=== PATIENT | male | born 1970 | race Caucasian/White ===

== ENCOUNTER → 2020-04-21 14:32 | Outpatient (BNVA) | payer OTHER, SELFPAY | PROVIDERS: PCP Internal Medicine; Visit Provider Internal Medicine Cardiovascular Disease | DX: R07.9 Chest pain, unspecified (principal); I49.3 Ventricular premature depolarization; E78.5 Hyperlipidemia, unspecified | CPT/HCPCS: 93005; 99212 ==

== ENCOUNTER → 2020-04-24 08:30 | Outpatient (REF) | payer OTHER, SELFPAY ==
--- NOTE | 2020-04-24 08:35 | CA_ITS ---
Acquisition Time: 2020-04-24 08:33:27 Total Exercise Time: 00:10:30 Test Indications: Chest Pain Medications: Protocol: ZAIDA Max HR: 173 BPM 101% of Pred: 171 BPM Max BP: 152/084 mmHG Max Work Load: 12.5 METS Exercise stress test with exercise 10 min 30 sec of Zaida protocol, without anginal symptoms, without arrythmia, with normotensive response to exercise, with EKG changes meeting criteria for ischemia inferiorly with exercise which corrects quickly in recovery then with nonspecific ST abnormality later in recovery. Test reviewed with Dr Castaneda. Will order stress echocardiogram for further evaluation. Referred By: Endy Castaneda Overread By: VIVI SAN
== END ==
LOC: HO.CARD 08:30
PROVIDERS: Visit Provider Internal Medicine Cardiovascular Disease
DX: R07.9 Chest pain, unspecified (principal)
CPT/HCPCS: 93016; 93017; 93018

== ENCOUNTER → 2020-05-11 10:39 | Outpatient (REF) | payer OTHER, SELFPAY ==
--- NOTE | 2020-05-11 10:42 | CA_ITS ---
Acquisition Time: 2020-05-11 11:18:40 Total Exercise Time: 00:09:49 Test Indications: Abnormal Treadmill Test Medications: FAMOTIDINE STATIN Protocol: ZAIDA Max HR: 164 BPM 96% of Pred: 170 BPM Max BP: 138/068 mmHG Max Work Load: 11.4 METS Exercise stress ECHO using Zaida protocol. Total of 9 min 49 sec. METS 11.40 and TAPHR up to 96%. . Pt tolerated well, denies any anginal sx. EKG with no arrhythmias, mild ST depressions seen inferiorly and in some lateral and anterior leads, ECHO images taken at rest and immediately after peak exercise HR achieved. Normotensive response to exercise. Test reviewed with Dr. Castaneda. STRESS ECHO Technique ; Images were obtained at rest and immediately post exercise within 1 minute. Definity contrast was used to enhance endocardial defintion. Images were obtained in multiple views and compared side to side. Findings : At rest images are of very good quality. LV systolic function is normal with normal wall motion. Post exercise images are of good quality. There is good augmentation og overall LV systolic function with no regional wall motion abnormalities. Conclusion : Stress ecgo negative for ischemia Referred By: Emely Alba Overread By: ANNETTA CASTANEDA MD
== END ==
LOC: HO.CARD 10:39
PROVIDERS: Visit Provider Nurse Practitioner Family
DX: E78.5 Hyperlipidemia, unspecified (principal); R94.39 Abnormal result of other cardiovascular function study
CPT/HCPCS: 93350; Q9957

== ENCOUNTER → 2020-07-27 15:08 | Outpatient (BNVA) | payer OTHER, SELFPAY | PROVIDERS: PCP Internal Medicine; Visit Provider Internal Medicine Cardiovascular Disease | DX: R07.9 Chest pain, unspecified (principal); E78.5 Hyperlipidemia, unspecified; Z79.899 Other long term (current) drug therapy | CPT/HCPCS: 99212 ==

== ENCOUNTER → 2021-03-31 11:06 | Outpatient (BNVA) | payer OTHER, SELFPAY | PROVIDERS: PCP Internal Medicine; Referring Provider Internal Medicine; Visit Provider Physician Assistant | DX: Z12.11 Encounter for screening for malignant neoplasm of colon (principal); K21.9 Gastro-esophageal reflux disease without esophagitis | CPT/HCPCS: 99202 ==

== ENCOUNTER 2021-06-07 06:04 | Outpatient (REF) | payer OTHER, SELFPAY ==
[2021-06-07 08:10] LABS: Alanine Aminotransferase 36 U/L (0-40); Albumin Level 4.5 g/dL (3.5-5.0); Alkaline Phosphatase 63 U/L (39-117); Anion Gap 11 (12-20); Aspartate Amino Transferase 21 U/L (5-37); Bilirubin Total 1.1 mg/dL (0.0-1.0); Blood Urea Nitrogen 18 mg/dL (9-16); Calcium 9.7 mg/dL (8.4-10.2); Carbon Dioxide 27 mmol/L (22-29); Chloride 104 mmol/L (96-108); Cholesterol 159 mg/dL; Estimated Glomerular Filt Rate > 60; Glucose Fasting 110 mg/dL (60-99); HDL Cholesterol 39 mg/dL; LDL Cholesterol Calculated 98 mg/dl; Potassium 4.5 mmol/L (3.3-5.1); Sodium 137 mmol/L (135-145); Total Protein 7.4 g/dL (6.5-8.0); Triglycerides 111 mg/dL
[2021-06-07 08:34] LABS: PSA,Total (Free>4and<10) 0.45 ng/mL (0.00-4.00)
[2021-06-09 16:42] LABS: CRP High Sensitivity 1.6 mg/L
== END 2021-06-07 06:05 | disposition home or self-care (01) ==
LOC: HO.LAB 06:04
PROVIDERS: Absent Provider Internal Medicine Cardiovascular Disease; PCP Internal Medicine; Visit Provider Internal Medicine
DX: E78.5 Hyperlipidemia, unspecified (principal); L98.9 Disorder of the skin and subcutaneous tissue, unspecified; G47.33 Obstructive sleep apnea (adult) (pediatric); Z12.5 Encounter for screening for malignant neoplasm of prostate; Z99.89 Dependence on other enabling machines and devices
CPT/HCPCS: 36415; 80053; 80061; 84153; 86141

== ENCOUNTER 2021-07-13 08:15 | Day surgery (SDC) | payer OTHER, SELFPAY ==
[2021-07-07 15:49] VITALS: BMI 25.3
--- NOTE | 2021-07-12 08:19 | P.CONAN_ITS ---
Documented by User: Veronique Rivas NP 07/12/21 08:21 HPI - Anesthesia Eval Consult details Narrative: 51yo M for Colonoscopy PMFSH Active Problems Active Problems: All Active Problems (Updated 03/31/21 @ 11:55 by Viktoriya Gibbs PA-C) Encounter for screening colonoscopy (Acute) ARON on CPAP (Acute) Skin lesion (Acute) Abnormal stress ECG (Acute) Hyperlipidemia (Acute) Chest pain (Acute) PVC (premature ventricular contraction) (Acute) GERD (gastroesophageal reflux disease) (Acute) Past Medical History Medical History Chest pain GERD (gastroesophageal reflux disease) Hyperlipidemia ARON on CPAP PVC (premature ventricular contraction) Skin lesion Family History Family History Father No problems noted. Mother Cancer Brother Skin cancer Surgical History Surgical History History of arthroscopy of right knee History of hand surgery History of inguinal hernia repair History of removal of cyst Social History Social History Housing: House Alcohol intake: current Alcohol intake frequency: a few times a week Alcohol type: beer and wine Patient Tobacco Use Status: Former Tobacco user Tobacco use type: Cigarette e-Cigarette/Vaping Use: Never Used Second Hand Smoke Exposure: No Advance Directives: No Advance Directives Information Provided: Yes service: Yes ([facility]) Current occupational status: employed Current occupational exposures/hazards: No Meds Allergies Allergy/AdvReac Type Severity Reaction Status Date / Time Penicillins [PENICILLINS] Allergy Intermediate UNKNOWN Verified 03/31/21 11:09 REACTION-CHILDHOOD ALLERGY Home Medications Medication Instructions Recorded Confirmed Last Taken Type famotidine 20 mg tablet (Acid 20 mg PO BEDTIME 02/13/20 03/31/21 Unknown History Consumer Marketing Manager (famotidine)) Exam Exam Date and Time: July 12, [id number] Height,Weight and Vital Signs: Height 6 ft Weight 84.822 kg Narrative Narrative: 2020 w/u for chest pain. Per cardiology Stress-induced chest pain with normal stress echocardiogram.? Likelihood of obstructive coronary artery disease extremely low. Assessment and Plan Assessment Anesthesia Assessment: Chart Reviewed Documented by User: Cheryl Evans MD 07/13/21 09:14 PMFSH Past Medical History Medical History Chest pain GERD (gastroesophageal reflux disease) Hyperlipidemia ARON on CPAP PVC (premature ventricular contraction) Skin lesion Family History Family History Father No problems noted. Mother Cancer Brother Skin cancer Surgical History Surgical History History of arthroscopy of right knee History of hand surgery History of inguinal hernia repair History of removal of cyst History of Problems with Anesthesia: No Social History Social History Housing: House Alcohol intake: current Alcohol intake frequency: a few times a week Alcohol type: beer and wine Patient Tobacco Use Status: Former Tobacco user Tobacco use type: Cigarette e-Cigarette/Vaping Use: Never Used Second Hand Smoke Exposure: No Advance Directives: No Advance Directives Information Provided: Yes service: Yes ([facility]) Current occupational status: employed Current occupational exposures/hazards: No Meds Allergies Allergy/AdvReac Type Severity Reaction Status Date / Time Penicillins [PENICILLINS] Allergy Intermediate UNKNOWN Verified 03/31/21 11:09 REACTION-CHILDHOOD ALLERGY Home Medications Medication Instructions Recorded Confirmed Last Taken Type famotidine 20 mg tablet (Acid 20 mg PO BEDTIME 02/13/20 03/31/21 Unknown History Consumer Marketing Manager (famotidine)) Exam Airway Mallampati Class: II TM Dist: >3cm Neck ROM: Full Loose/Missing/Broken Teeth: No Heart: RRR Lungs: CTA Assessment and Plan Assessment Anesthesia Assessment: Anesthesia Plan Discussed Final Anesthetic Review History of Problems with Anesthesia: No NPO: Yes ASA Class: III Final Preanesthetic Review: Meds/Allgs Chart Reviewed, Consent Obtained/Reviewed and Anes Risks/Benef Reviewed Patient Risk: Intermediate Procedure Risk: Low Anesthetic Plan Anesthetic Plan: MAC: Disposition: Standard PACU
--- NOTE | 2021-07-13 08:38 | MHC.SHP ---
Pre-Procedural Eval Section A Date of Service: 07/13/21 Section B Chief Complaint: screening Relevant Family History (Specify if Yes): No Relevant Social History: None Present Medications: see Short Stay Collaborative assessment (Chest pain GERD (gastroesophageal reflux disease) Hyperlipidemia ARON on CPAP PVC (premature ventricular contraction) Skin lesion) Medical History: Significant History History of Previous Operations: Relevant previous surgery/procedure and date(s) (History of arthroscopy of right knee History of hand surgery History of inguinal hernia repair History of removal of cyst) Allergies: Allergies Allergy/AdvReac Type Severity Reaction Status Date / Time Penicillins [PENICILLINS] Allergy Intermediate UNKNOWN Verified 03/31/21 11:09 REACTION-CHILDHOOD ALLERGY Review of Systems Sugical H&P ROS: Negative: Constitution, Cardiovascular, Respiratory, Neurological, Psychiatric, Hem-Onc, Allergic/Immunologic, Gastrointestinal, Genitourinary, Musculoskeletal, Integumentary, Endocrine and Eyes/Ears/Nose/Throat Exam Surgical H&P Exam: Normal: HEENT, Normal: Heart, Normal: Lungs, Normal: Extremities, Normal: Abdomen, Normal: Skin and Normal: Neurological Plan Diagnosis/Plan: Unchanged I have reviewed the history and physical and performed a pertinent physical examination on my patient. No changes have occurred unless specified.
[2021-07-13 08:45] VITALS: BP 131/82; PULSE 76; RESP 18; TEMP 36.9; O2SAT 99
--- NOTE | 2021-07-13 08:58 | PM.OP ---
Brief Operative Note Date of Service: 07/13/21 Pre-op diagnosis: screening Post-op diagnosis: same Procedure: see op note Surgeon: Felton Cooney MD Anesthesia: MAC Was an Wire Mesh Filter Fabricator used for this Procedure?: No Estimated blood loss (mL): 0 Condition: stable Disposition: PACU
--- NOTE | 2021-07-13 09:03 | P.OP_ITS ---
Operative Note Operative Note Date of Service: 07/13/21 Narrative: Operative Information Procedure Description: Colonoscopy Indication: screening Anesthesia: MAC COLONOSCOPY Instrument: Olympus variable stiffness pediatric scope 190L Colonoscopy Monitoring: Vital signs and clinical assessment, continuous EKG monitoring, Pulse oximetry, Carbon Dioxide monitoring and blood pressure monitoring were done throughout the procedure. Colon withdrawal time was 9 minutes. Procedure: The patient was placed in the left lateral decubitis position and pre-procedure medications were administered. After a digital rectal examination of the ano-rectum, the video colonoscope was inserted into the rectum and advanced through the colon to the cecum/TI. The colonoscope was slowly withdrawn in a retrograde panoramic fashion and the colon mucosa was carefully examined including a retroflexed view of the rectum. Findings and interventions are described below. Procedure Difficulty: easy Findings: Terminal Ileum-normal Cecum: 10 mm sessile polyp removed with cold snare Ascending Colon: x 2 sessile polyps 12-15 mm removed with cold snare Transverse Colon -normal Descending Colon:normal Sigmoid Colon: mild diverticulosis Rectum: Retroflexion with small internal hemorrhoids, grade I, 18-20 mm sessile polyp injected with few cc of epinephrine then removed en bloc using hot snare, edges ablated and x1 clip applied Anorectum - normal Colon preparation: [place] Bowel Preparation Scale Right colon; 2 Transverse colon: 3 Left colon; 3 (0 = Unprepared colon segment with mucosa not seen due to solid stool that cannot be cleared. 1 = Portion of mucosa of the colon segment seen, but other areas of the colon segment not well seen due to staining, residual stool and/or opaque liquid. 2 = Minor amount of residual staining, small fragments of stool and/or opaque liquid, but mucosa of colon segment seen well. 3 = Entire mucosa of colon segment seen well with no residual staining, small fragments of stool or opaque liquid) Impression and Post Procedure Diagnosis: polyps internal hemorrhoids diverticular disease Plan: High fiber diet leaflet Avoid straining at stool, epsom salts and sitz bath, anusol supps or cream Repeat Colonoscopy in 1 year due to large polyps or earlier if clinically indicated Above findings were reviewed with the patient and relevant handouts were provided if indicated.
[2021-07-13 09:53] VITALS: BP 115/68; PULSE 79; RESP 16; TEMP 36.4; O2SAT 97
[2021-07-13 10:08] VITALS: BP 137/89; PULSE 74; RESP 16; TEMP 36.2; O2SAT 98
[2021-07-13] MEDS: Lactated Ringers 1,000 ML 100 ML IVCONT (10:10)
== END 2021-07-13 10:49 | disposition home or self-care (01) ==
PROVIDERS: PCP Internal Medicine; Visit Provider Internal Medicine Gastroenterology
PROC: 0DJD8ZZ Inspection of Lower Intestinal Tract, Via Natural or Artificial Opening Endoscopic (ICD-10-PCS; CPT 45378; principal; 2021-07-13 09:50)
DX: Z12.11 Encounter for screening for malignant neoplasm of colon (principal); C20 Malignant neoplasm of rectum; D12.0 Benign neoplasm of cecum; D12.2 Benign neoplasm of ascending colon; K57.30 Diverticulosis of large intestine without perforation or abscess without bleeding; K64.0 First degree hemorrhoids; I49.3 Ventricular premature depolarization; K21.9 Gastro-esophageal reflux disease without esophagitis; E78.5 Hyperlipidemia, unspecified; G47.33 Obstructive sleep apnea (adult) (pediatric); Z99.89 Dependence on other enabling machines and devices; Z79.899 Other long term (current) drug therapy; Z88.0 Allergy status to penicillin; Z87.891 Personal history of nicotine dependence
CPT/HCPCS: 45385; 45381; 88305; 88341; 88342; J0171; J2250

== ENCOUNTER 2021-07-19 10:01 | Day surgery (SDC) | payer OTHER, SELFPAY ==
--- NOTE | 2021-07-19 10:16 | MHC.SHP ---
Pre-Procedural Eval Section A Date of Service: 07/19/21 The patient is an INPATIENT: No The History & Physical has been completed within 30 days and I have reviewed it.: Yes Section B Chief Complaint: neoplasm of colon Allergies: Allergies Allergy/AdvReac Type Severity Reaction Status Date / Time Penicillins [PENICILLINS] Allergy Intermediate UNKNOWN Verified 03/31/21 11:09 REACTION-CHILDHOOD ALLERGY Plan I have reviewed the history and physical and performed a pertinent physical examination on my patient. No changes have occurred unless specified. Rectal cancer on path from colonoscopy last week, for repeat review and biopsy, site marking
[2021-07-19 10:24] VITALS: BMI 26.0
[2021-07-19 10:50] VITALS: BP 144/90; PULSE 77; RESP 16; TEMP 37.1; O2SAT 98
[2021-07-19] MEDS: diphenhydrAMINE HCL 50 MG/ML VIAL 12.5 MG IVPUSH (11:16)
[2021-07-19] MEDS: Hydrocortisone Sod Succ/PF 100 MG VIAL 25 MG IVPUSH (11:18)
--- NOTE | 2021-07-19 11:32 | P.CONAN_ITS ---
[facility] Active Problems Active Problems: All Active Problems (Updated 07/16/21 @ 09:04 by Felton Cooney MD) Abnormal stress ECG (Acute) Encounter for screening colonoscopy (Acute) Colon cancer (Acute) ARON on CPAP (Acute) Skin lesion (Acute) Hyperlipidemia (Acute) Chest pain (Acute) PVC (premature ventricular contraction) (Acute) GERD (gastroesophageal reflux disease) (Acute) Past Medical History Medical History Chest pain GERD (gastroesophageal reflux disease) Hyperlipidemia ARON on CPAP PVC (premature ventricular contraction) Skin lesion Functional capacity: independent ambulation Family History Family History Father No problems noted. Mother Cancer Brother Skin cancer Family history of problems with anesthesia: No Surgical History Surgical History History of arthroscopy of right knee History of hand surgery History of inguinal hernia repair History of removal of cyst Hx of colonoscopy History of Problems with Anesthesia: No Social History Social History Housing: House Alcohol intake: current Alcohol intake frequency: a few times a week Alcohol type: beer and wine Patient Tobacco Use Status: Former Tobacco user Quit Date: 2006 Tobacco use type: Cigarette e-Cigarette/Vaping Use: Never Used Second Hand Smoke Exposure: No Use of substances other than those prescribed or required for medical reasons: No Are you DNR?: No Advance Directives: No Advance Directives Information Provided: Yes service: Yes ([facility] [employer]) Current occupational status: employed Current occupational exposures/hazards: No Meds Allergies Allergy/AdvReac Type Severity Reaction Status Date / Time Penicillins [PENICILLINS] Allergy Intermediate UNKNOWN Verified 07/19/21 10:42 REACTION-CHILDHOOD ALLERGY Exam Exam Date and Time: July 19, 2021 1132 Height,Weight and Vital Signs: Height 6 ft Weight 87.09 kg Last Vital Signs Temp 98.7 F 07/19/21 10:50 Pulse 77 07/19/21 10:50 Resp 16 07/19/21 10:50 BP 144/90 H 07/19/21 10:50 Pulse Ox 98 06/13/22 10:50 O2 Del Method 07/19/21 10:50 Airway Mallampati Class: III TM Dist: >3cm Heart: RRR Lungs: CTA Assessment and Plan Final Anesthetic Review Family History of Problems with Anesthesia: No History of Problems with Anesthesia: No ASA Class: II Final Preanesthetic Review: No Changes in Pt Med Stat, Meds/Allgs Chart Reviewed, Consent Obtained/Reviewed and Anes Risks/Benef Reviewed Patient Risk: Low Procedure Risk: Low Anesthetic Plan Anesthetic Plan: MAC: Disposition: Standard PACU
--- NOTE | 2021-07-19 11:42 | HO.ANESPROP2 ---
HPI - Anesthesia Eval Consult details Narrative: 51 yo male patient for flexible sigmoidoscopy PMF Active Problems Active Problems: All Active Problems (Updated 07/16/21 @ 09:04 by Felton Cooney MD) Abnormal stress ECG (Acute) Encounter for screening colonoscopy (Acute) Colon cancer (Acute) ARON on CPAP (Acute) Skin lesion (Acute) Hyperlipidemia (Acute) Chest pain (Acute) PVC (premature ventricular contraction) (Acute) GERD (gastroesophageal reflux disease) (Acute) Past Medical History Medical History Chest pain GERD (gastroesophageal reflux disease) Hyperlipidemia ARON on CPAP PVC (premature ventricular contraction) Skin lesion Functional capacity: independent ambulation Family History Family History Father No problems noted. Mother Cancer Brother Skin cancer Family history of problems with anesthesia: No Surgical History Surgical History History of arthroscopy of right knee History of hand surgery History of inguinal hernia repair History of removal of cyst Hx of colonoscopy History of Problems with Anesthesia: No Social History Social History Housing: House Alcohol intake: current Alcohol intake frequency: a few times a week Alcohol type: beer and wine Patient Tobacco Use Status: Former Tobacco user Quit Date: 2006 Tobacco use type: Cigarette e-Cigarette/Vaping Use: Never Used Second Hand Smoke Exposure: No Use of substances other than those prescribed or required for medical reasons: No Are you DNR?: No Advance Directives: No Advance Directives Information Provided: Yes service: Yes ([facility]) Current occupational status: employed Current occupational exposures/hazards: No Meds Allergies Allergy/AdvReac Type Severity Reaction Status Date / Time Penicillins [PENICILLINS] Allergy Intermediate UNKNOWN Verified 07/19/21 10:42 REACTION-CHILDHOOD ALLERGY Exam Exam Date and Time: July 19, 2021 1142 Height,Weight and Vital Signs: Height 6 ft Weight 87.09 kg Last Vital Signs Temp 98.7 F 07/19/21 10:50 Pulse 77 07/19/21 10:50 Resp 16 07/19/21 10:50 BP 144/90 H 07/19/21 10:50 Pulse Ox 98 07/19/21 10:50 O2 Del Method 07/19/21 10:50 Assessment and Plan Final Anesthetic Review Family History of Problems with Anesthesia: No History of Problems with Anesthesia: No
--- NOTE | 2021-07-19 12:11 | PM.OP ---
Brief Operative Note Date of Service: 07/19/21 Pre-op diagnosis: malignant polyp, reassesment of resection site Post-op diagnosis: same Procedure: see op note Surgeon: Felton Cooney MD Anesthesia: MAC Was an Business Sales Consultant used for this Procedure?: No Estimated blood loss (mL): 0 Condition: stable Disposition: PACU
--- NOTE | 2021-07-19 12:12 | W.PM.OPN ---
Operative Note Operative Note Date of Service: 07/19/21 Narrative: Operative Information Procedure Description: Sigmoidoscopy Indication: malignant polyp, reassessment of resection site Anesthesia: MAC Sigmoidoscopy Instrument: Olympus variable stiffness pediatric scope 190L Monitoring: Vital signs and clinical assessment, continuous EKG monitoring, Pulse oximetry, Carbon Dioxide monitoring and blood pressure monitoring were done throughout the procedure. Procedure: The patient was placed in the left lateral decubitis position and pre-procedure medications were administered. After a digital rectal examination of the ano-rectum, the video colonoscope was inserted into the rectum and advanced through the colon to the rectum Findings and interventions are described below. Procedure Difficulty: easy Findings: Sigmoid Colon: normal Rectum: Resection site from recent resection noted at around 10 cm from anal verge, clip still present from last time. multiple biopsies taken from around the resection site and autumn ink injected at the base of the resection area. Anorectum - normal Impression and Post Procedure Diagnosis: Malignant polyp, reassessment with biopsies and autumn ink marking Plan: f/u with oncology await results of biopsies will defer further imaging and CEA levels etc to oncology Above findings were reviewed with the patient and relevant handouts were provided if indicated.
[2021-07-19 12:17] VITALS: BP 128/83; PULSE 66; RESP 25; TEMP 36.7; O2SAT 97
[2021-07-19 12:32] VITALS: BP 129/85; PULSE 68; RESP 17; O2SAT 99
[2021-07-19 12:47] VITALS: BP 138/85; PULSE 71; RESP 18; TEMP 36.6; O2SAT 100
== END 2021-07-19 13:00 | disposition home or self-care (01) ==
LOC: HO.SSS 10:02
PROVIDERS: PCP Internal Medicine; Visit Provider Internal Medicine Gastroenterology
PROC: 0DJD8ZZ Inspection of Lower Intestinal Tract, Via Natural or Artificial Opening Endoscopic (ICD-10-PCS; CPT 45330; principal; 2021-07-19 11:20)
DX: C20 Malignant neoplasm of rectum (principal); D12.8 Benign neoplasm of rectum; Z86.010 Personal history of colon polyps; Z80.0 Family history of malignant neoplasm of digestive organs; K21.9 Gastro-esophageal reflux disease without esophagitis; G47.33 Obstructive sleep apnea (adult) (pediatric); E78.5 Hyperlipidemia, unspecified; I49.3 Ventricular premature depolarization; Z79.899 Other long term (current) drug therapy; Z99.89 Dependence on other enabling machines and devices; Z88.0 Allergy status to penicillin; Z98.890 Other specified postprocedural states; Z87.891 Personal history of nicotine dependence
CPT/HCPCS: 45331; 45335; 88305; J1200

== ENCOUNTER 2021-07-29 13:55 | Outpatient (REF) | payer OTHER, SELFPAY ==
--- NOTE | ~2021-07-29 | CT_ITS ---
EXAMINATION: CT ABDOMEN AND PELVIS WITH CONTRAST CLINICAL INFORMATION: Rectal cancer COMPARISON: None TECHNIQUE: Multidetector volumetric images were obtained from the superior aspect of the liver through the pubic symphysis following administration 85 mL of Omnipaque 350 intravenous contrast. Sagittal and coronal reformatted images were obtained on the technologist's workstation. Oral contrast: Yes This CT examination was performed using dose optimization techniques as appropriate, variously including the following: *Automated exposure control *Adjustment of mA and/or kV according to patient size (this includes techniques or standardized protocols for targeted exams where dose is matched to indication/reason for exam; i.e. extremities or head) *Use of iterative reconstruction technique DLP: 515 mGy-cm FINDINGS: LUNG BASES: The visualized lung bases are unremarkable. LIVER, GALLBLADDER, AND BILIARY TREE: The liver is normal in size, shape, and attenuation. No focal hepatic lesion or biliary ductal dilatation is present. The gallbladder is unremarkable with no evidence of radiopaque gallstones, gallbladder wall thickening, or obvious pericholecystic inflammatory changes. PANCREAS: Unremarkable. SPLEEN: Unremarkable. ADRENAL GLANDS: Unremarkable. KIDNEYS AND URETERS: The kidneys are normal in size, shape, and attenuation. No hydronephrosis, hydroureter, or calculi seen. No perinephric stranding. BLADDER: Unremarkable. GASTROINTESTINAL TRACT: No bowel obstruction or focal inflammatory changes in bowel or mesentery. Primary rectal lesion is not clearly visualized. Perirectal soft tissues unremarkable. Appendix normal. No ascites or fluid collection. ABDOMINAL WALL: Tiny fat-containing umbilical hernia under 2 cm. LYMPH NODES: No lymphadenopathy. VASCULAR: Unremarkable. PELVIC VISCERA: Unremarkable. OSSEOUS STRUCTURES: Unremarkable. CT/CT abdomen pelvis w con IMPRESSION: No metastatic disease. Fleischner guidelines were followed.
[2021-07-29] MEDS: Barium Sulfate Oral (Mocha) 450 ML ORAL.SUSP 900 ML PO (16:54)
[2021-07-29] MEDS: iohexoL 350 MG/ML 100 ML INFUS..BTL IV (16:54)
== END 2021-07-29 13:56 | disposition home or self-care (01) ==
LOC: HO.CT 13:55
PROVIDERS: PCP Internal Medicine; Visit Provider Internal Medicine
DX: C18.9 Malignant neoplasm of colon, unspecified (principal)
CPT/HCPCS: 74177; Q9967

== ENCOUNTER → 2021-08-02 14:35 | Outpatient (BNVA) | payer OTHER, SELFPAY | PROVIDERS: PCP Internal Medicine; Referring Provider Internal Medicine; Visit Provider Internal Medicine Cardiovascular Disease | DX: I49.3 Ventricular premature depolarization (principal); E78.5 Hyperlipidemia, unspecified; Z79.899 Other long term (current) drug therapy | CPT/HCPCS: 93005; 99212 ==

== ENCOUNTER → 2021-08-05 10:13 | Outpatient (BNVA) | payer OTHER, SELFPAY | PROVIDERS: PCP Internal Medicine; Referring Provider Internal Medicine; Visit Provider Surgery | DX: Z85.048 Personal history of other malignant neoplasm of rectum, rectosigmoid junction, and anus (principal) | CPT/HCPCS: 99202 ==

== ENCOUNTER → 2021-10-04 14:59 | Outpatient (BNVA) | payer OTHER, SELFPAY | PROVIDERS: PCP Internal Medicine; Referring Provider Internal Medicine; Visit Provider Surgery | DX: K42.9 Umbilical hernia without obstruction or gangrene (principal); Z79.899 Other long term (current) drug therapy | CPT/HCPCS: 99212 ==

== ENCOUNTER 2021-11-12 07:49 | Day surgery (SDC) | payer OTHER, SELFPAY ==
[2021-11-08 15:21] VITALS: BMI 26.3
--- NOTE | 2021-11-11 10:00 | HO.ANESPROP2 ---
Documented by User: Veronique Rivas NP 11/11/21 10:04 HPI - Anesthesia Eval Consult details Narrative: 51yo M for Hernia Repair Umbilical with mesh PMFSH Active Problems Active Problems: All Active Problems (Updated 11/08/21 @ 15:19 by Regina Cerda RN) Abnormal stress ECG (Acute) Encounter for screening colonoscopy (Acute) Colon cancer (Acute) Rectal adenocarcinoma (Acute) Umbilical hernia (Acute) Physical exam (Acute) Foot pain (Acute) ARON on CPAP (Acute) Skin lesion (Acute) Hyperlipidemia (Acute) Chest pain (Acute) PVC (premature ventricular contraction) (Acute) GERD (gastroesophageal reflux disease) (Acute) Past Medical History Medical History Actinic keratitis Chest pain GERD (gastroesophageal reflux disease) Hyperlipidemia ARON on CPAP PVC (premature ventricular contraction) Rectal adenocarcinoma Skin lesion Family History Family History Father Prostate CA Mother Gastric cancer Cancer Brother Skin cancer Maternal Grandfather Throat cancer Lung cancer Paternal Uncle Throat cancer Lung cancer Paternal Aunt Gastric cancer Brother Melanoma Family history of problems with anesthesia: No Surgical History Surgical History History of arthroscopy of right knee History of hand surgery History of inguinal hernia repair History of removal of cyst History of sigmoidoscopy Hx of colonoscopy History of Problems with Anesthesia: No Social History Social History Household Members: Spouse Housing: House Alcohol intake: current Alcohol intake frequency: a few times a week Alcohol type: beer and wine Patient Tobacco Use Status: Former Tobacco user Quit Date: 2006 Tobacco use type: Cigarette Years Smoked: 15 (1/2 ppd) e-Cigarette/Vaping Use: Never Used Second Hand Smoke Exposure: No Use of substances other than those prescribed or required for medical reasons: No Are you DNR?: No Advance Directives: No Advance Directives Information Provided: Yes service: Yes ([facility]) Current occupational status: employed Current occupational exposures/hazards: No Cognitive needs: No Hearing needs: No Vision needs: Yes Meds Allergies Allergy/AdvReac Type Severity Reaction Status Date / Time Penicillins [PENICILLINS] Allergy Intermediate UNKNOWN Verified 11/02/21 16:20 REACTION-CHILDHOOD ALLERGY Exam Exam Date and Time: November 11, 2021 1000 Height,Weight and Vital Signs: Height 6 ft Weight 87.997 kg Pertinent Lab Results Pertinent Lab Results: Laboratory Tests 07/19/21 07/19/21 16:01 16:01 WBC 6.9 Hgb 16.4 Hct 48.9 Plt Count 227 Sodium 139 Potassium 4.3 Chloride 103 Carbon Dioxide 27 BUN 16 Creatinine 1.30 Narrative Narrative: EKG 07/2021 normal sinus rhythm with normal EKG STRESS ECHO 2020 ? Technique ; ? Images were obtained at rest and immediately post exercise within 1 minute. Definity contrast was used to enhance endocardial defintion. Images were obtained in multiple views and compared side to side. ? Findings : ? At rest images are of very good quality. LV systolic function is normal with normal wall motion. Post exercise images are of good quality. There is good augmentation og overall LV systolic function with no regional wall? motion abnormalities. ? Conclusion : ? Stress ecgo negative for ischemia Assessment and Plan Assessment Anesthesia Assessment: Chart Reviewed Final Anesthetic Review Family History of Problems with Anesthesia: No History of Problems with Anesthesia: No Documented by User: Daniel Juárez MD 11/12/21 08:53 PMFSH Past Medical History Medical History Actinic keratitis Chest pain GERD (gastroesophageal reflux disease) Hyperlipidemia ARON on CPAP PVC (premature ventricular contraction) Rectal adenocarcinoma Skin lesion Family History Family History Father Prostate CA Mother Gastric cancer Cancer Brother Skin cancer Maternal Grandfather Throat cancer Lung cancer Paternal Uncle Throat cancer Lung cancer Paternal Aunt Gastric cancer Brother Melanoma Surgical History Surgical History History of arthroscopy of right knee History of hand surgery History of inguinal hernia repair History of removal of cyst History of sigmoidoscopy Hx of colonoscopy Social History Social History Household Members: Spouse Housing: House Alcohol intake: current Alcohol intake frequency: a few times a week Alcohol type: beer and wine Patient Tobacco Use Status: Former Tobacco user Quit Date: 2006 Tobacco use type: Cigarette Years Smoked: 15 (1/2 ppd) e-Cigarette/Vaping Use: Never Used Second Hand Smoke Exposure: No Use of substances other than those prescribed or required for medical reasons: No Are you DNR?: No Advance Directives: No Advance Directives Information Provided: Yes service: Yes ([facility]) Current occupational status: employed Current occupational exposures/hazards: No Cognitive needs: No Hearing needs: No Vision needs: Yes Meds Allergies Allergy/AdvReac Type Severity Reaction Status Date / Time Penicillins [PENICILLINS] Allergy Intermediate UNKNOWN Verified 11/02/21 16:20 REACTION-CHILDHOOD ALLERGY Exam Airway Mallampati Class: II TM Dist: >3cm Neck ROM: Full Loose/Missing/Broken Teeth: Yes (upper front crown fell out yesterday as per patient) Heart: rrr+[id number] Lungs: cta b/l Assessment and Plan Assessment Anesthesia Assessment: Anesthesia Plan Discussed Final Anesthetic Review NPO: Yes ASA Class: III Final Preanesthetic Review: No Changes in Pt Med Stat, Meds/Allgs Chart Reviewed, Consent Obtained/Reviewed and Anes Risks/Benef Reviewed Patient Risk: Intermediate Procedure Risk: Intermediate Assessment/Block/Sedation in SS: Assess/Block/Sedation-SS Anesthetic Plan Anesthetic Plan: GA and Agree w/ Assess. and Plan Disposition: Standard PACU
[2021-11-12 08:13] VITALS: BMI 26.6
[2021-11-12] MEDS: Lactated Ringers 1,000 ML 100 ML IVCONT (08:47)
--- NOTE | 2021-11-12 08:48 | MHC.SHP ---
Pre-Procedural Eval Section A Date of Service: 11/12/21 Section B Chief Complaint: hernia Details of Present Illness: Has reducible umbilical hernia Relevant Social History: None Present Medications: see Short Stay Collaborative assessment Medical History: Significant History ( hyperlipidemia, GERD, history of malignant rectal polyp) History of Previous Operations: No relevant previous surgery Allergies: Allergies Allergy/AdvReac Type Severity Reaction Status Date / Time Penicillins [PENICILLINS] Allergy Intermediate UNKNOWN Verified 11/02/21 16:20 REACTION-CHILDHOOD ALLERGY Review of Systems Sugical H&P ROS: Negative: Constitution, Cardiovascular, Respiratory, Neurological, Psychiatric, Hem-Onc, Allergic/Immunologic, Gastrointestinal, Genitourinary, Musculoskeletal, Integumentary, Endocrine and Eyes/Ears/Nose/Throat Exam Surgical H&P Exam: Normal: HEENT, Normal: Heart, Normal: Lungs, Normal: Extremities, Normal: Abdomen, Normal: Skin and Normal: Neurological Plan Diagnosis/Plan: Unchanged I have reviewed the history and physical and performed a pertinent physical examination on my patient. No changes have occurred unless specified.
[2021-11-12 08:51] VITALS: BP 133/92; PULSE 80; RESP 16; TEMP 36.8; O2SAT 99
--- NOTE | 2021-11-12 09:50 | W.PM.OPN ---
Operative Note Operative Note Date of Service: 11/12/21 Narrative: Preop diagnosis: umbilicall hernia Postop diagnosis: Umbilical hernia, fat containing Procedure: Repair of umbilical hernia Surgeon: Noe Hummel MD circulation assistant: RORO Brown The patient is a 51-year-old male with an umbilical hernia, fat containing seen on a CT scan. He wanted to proceed with repair. He understood the technique of repair with possible mesh. He wasaware of the risks, benefits, and alternatives. He was brought to the operating room. He was placed in supine position under general anesthesia via LMA. The abdomen was prepped and draped in the usual sterile fashion. A surgical time-out was done. The patient received cefazolin 2 g IV preoperatively. I infiltrated the planned line of incision with lidocaine 1%. I made an infraumbilical transverse curvilinear incision using blade 15. This was carried down through the full-thickness of the skin subcutaneous fat with electrocautery. I proceeded to then gently dissect the umbilicus off as a flap using sharp dissection as well. This allowed me to visualize the hernia. This contained fat. I continued to dissect the fibrous adhesions tethering the hernia contents of the fascia and with sharp dissection until was able to reduce the entire hernia. I further define the umbilical defect. This was about 8 mm in size. Therefore you decided against using a mesh because of the very small size of the hernia. I closed this hernia defect with a figure-eight Maxon 1 stitch. The umbilicus was tacked down to the fascia to re-create the dimple using Dexon 3-0 sutures. Skin closure was achieved with Dexon 4-0 subcuticular running sutures. The incision was infiltrated with Marcaine 0.5% for postop analgesia. Dressings were applied. The procedure was then completed. The patient tolerated procedure well. There were no immediate complications. Estimated blood loss was about 3 cc The patient was extubated without difficulty and transferred to the recovery room with stable vital signs.
[2021-11-12 10:05] VITALS: BP 131/85; PULSE 75; RESP 16; TEMP 36.4; O2SAT 99
[2021-11-12 10:10] VITALS: BP 134/87; PULSE 74; RESP 16; O2SAT 98
[2021-11-12 10:15] VITALS: BP 134/91; PULSE 75; RESP 16; O2SAT 97
[2021-11-12 10:20] VITALS: BP 143/90; PULSE 72; RESP 16; TEMP 36.4; O2SAT 98
[2021-11-12 10:35] VITALS: BP 137/87; PULSE 70; RESP 16; TEMP 36.7; O2SAT 98
== END 2021-11-12 11:14 | disposition home or self-care (01) ==
PROVIDERS: PCP Internal Medicine; Visit Provider Surgery
PROC: (CPT 49585; principal; 2021-11-12 09:30)
DX: K42.9 Umbilical hernia without obstruction or gangrene (principal); K66.0 Peritoneal adhesions (postprocedural) (postinfection); K21.9 Gastro-esophageal reflux disease without esophagitis; G47.33 Obstructive sleep apnea (adult) (pediatric); E78.5 Hyperlipidemia, unspecified; I49.3 Ventricular premature depolarization; Z85.048 Personal history of other malignant neoplasm of rectum, rectosigmoid junction, and anus; Z79.899 Other long term (current) drug therapy; Z88.0 Allergy status to penicillin; Z87.891 Personal history of nicotine dependence
CPT/HCPCS: 49585; J0690; J1100; J2250; J2405; J2795; J3010

== ENCOUNTER → 2022-01-17 15:58 | Outpatient (BNVA) | payer OTHER, SELFPAY | PROVIDERS: PCP Internal Medicine; Visit Provider Surgery | DX: C20 Malignant neoplasm of rectum (principal); Z98.890 Other specified postprocedural states | CPT/HCPCS: 99212 ==

== ENCOUNTER 2022-03-04 07:04 | Day surgery (SDC) | payer OTHER, SELFPAY ==
[2022-02-25 13:23] VITALS: BMI 26.5
--- NOTE | 2022-03-03 09:56 | HO.ANESPROP2 ---
HPI - Anesthesia Eval Consult details Narrative: 51yo M for Sigmoidoscopy Flexible s/p umbilical hernia 11[facility]2021 [facility] Active Problems Active Problems: All Active Problems (Updated 11/08/21 @ 15:19 by Regina Cerda RN) Abnormal stress ECG (Acute) Encounter for screening colonoscopy (Acute) Colon cancer (Acute) Rectal adenocarcinoma (Acute) Umbilical hernia (Acute) Physical exam (Acute) Foot pain (Acute) History of rectal polypectomy (Acute) ARON on CPAP (Acute) Skin lesion (Acute) Hyperlipidemia (Acute) Chest pain (Acute) PVC (premature ventricular contraction) (Acute) GERD (gastroesophageal reflux disease) (Acute) Past Medical History Medical History Actinic keratitis Chest pain GERD (gastroesophageal reflux disease) Hyperlipidemia ARON on CPAP PVC (premature ventricular contraction) Rectal adenocarcinoma Skin lesion Family History Family History Father Prostate CA Mother Gastric cancer Cancer Brother Skin cancer Maternal Grandfather Throat cancer Lung cancer Paternal Uncle Throat cancer Lung cancer Paternal Aunt Gastric cancer Brother Melanoma Family history of problems with anesthesia: No Surgical History Surgical History (Updated 02/25/22 @ 13:12 by Regina Cerda RN) History of arthroscopy of right knee History of hand surgery History of inguinal hernia repair History of rectal polypectomy History of removal of cyst History of sigmoidoscopy Hx of colonoscopy Hx of umbilical hernia repair History of Problems with Anesthesia: No Social History Social History Household Members: Spouse Housing: House Alcohol intake: current Alcohol intake frequency: a few times a week Alcohol type: beer and wine Patient Tobacco Use Status: Former Tobacco user Quit Date: 2006 Tobacco use type: Cigarette Years Smoked: 15 e-Cigarette/Vaping Use: Never Used Second Hand Smoke Exposure: No Use of substances other than those prescribed or required for medical reasons: No Have you been hit, kicked, punched, or otherwise hurt by someone within the past year? If so, by whom?: No Are you DNR?: No Advance Directives: No Advance Directives Information Provided: Yes Advance Directives on File: No Recently lost weight without trying: No Eating poorly because of decreased appetite: No Nutrition Risks: No Nutritional Risk service: Yes ([employer]) Current occupational status: employed Current occupational exposures/hazards: No Cognitive needs: No Hearing needs: No Vision needs: Yes Meds Allergies Allergy/AdvReac Type Severity Reaction Status Date / Time Penicillins [PENICILLINS] Allergy Intermediate UNKNOWN Verified 01/17/22 16:26 REACTION-CHILDHOOD ALLERGY Exam Exam Date and Time: March 03, 2022 0956 Height,Weight and Vital Signs: Height 6 ft Weight 88.677 kg Pertinent Lab Results Pertinent Lab Results: Laboratory Tests 07/19/21 07/19/21 16:01 16:01 WBC 6.9 Hgb 16.4 Hct 48.9 Plt Count 227 Sodium 139 Potassium 4.3 Chloride 103 Carbon Dioxide 27 BUN 16 Creatinine 1.30 Narrative Narrative: EKG 07/2021 normal sinus rhythm with normal EKG STRESS ECHO 2020 ? Technique ; ? Images were obtained at rest and immediately post exercise within 1 minute. Definity contrast was used to enhance endocardial defintion. Images were obtained in multiple views and compared side to side. ? Findings : ? At rest images are of very good quality. LV systolic function is normal with normal wall motion. Post exercise images are of good quality. There is good augmentation og overall LV systolic function with no regional wall? motion abnormalities. ? Conclusion : ? Stress echo negative for ischemia Assessment and Plan Assessment Anesthesia Assessment: Chart Reviewed Final Anesthetic Review Family History of Problems with Anesthesia: No History of Problems with Anesthesia: No
[2022-03-04 07:47] VITALS: BP 144/96; PULSE 73; RESP 16; TEMP 36.4; O2SAT 98
[2022-03-04] MEDS: Lactated Ringers 1,000 ML 100 ML IVCONT (07:59)
[2022-03-04] MEDS: Sodium Phosphate,Mono-Dibasic 133 ML ENEMA PR (08:01)
--- NOTE | 2022-03-04 08:29 | HO.ANESPROP2 ---
[facility] Active Problems Active Problems: All Active Problems (Updated 11/08/21 @ 15:19 by Regina Cerda RN) Abnormal stress ECG (Acute) Encounter for screening colonoscopy (Acute) Colon cancer (Acute) Rectal adenocarcinoma (Acute) Umbilical hernia (Acute) Physical exam (Acute) Foot pain (Acute) History of rectal polypectomy (Acute) ARON on CPAP (Acute) Skin lesion (Acute) Hyperlipidemia (Acute) Chest pain (Acute) PVC (premature ventricular contraction) (Acute) GERD (gastroesophageal reflux disease) (Acute) Past Medical History Medical History Actinic keratitis Chest pain GERD (gastroesophageal reflux disease) Hyperlipidemia ARON on CPAP PVC (premature ventricular contraction) Rectal adenocarcinoma Skin lesion Family History Family History Father Prostate CA Mother Gastric cancer Cancer Brother Skin cancer Maternal Grandfather Throat cancer Lung cancer Paternal Uncle Throat cancer Lung cancer Paternal Aunt Gastric cancer Brother Melanoma Family history of problems with anesthesia: No Surgical History Surgical History (Updated 02/25/22 @ 13:12 by Regina Cerda RN) History of arthroscopy of right knee History of hand surgery History of inguinal hernia repair History of rectal polypectomy History of removal of cyst History of sigmoidoscopy Hx of colonoscopy Hx of umbilical hernia repair History of Problems with Anesthesia: No Social History Social History Household Members: Spouse Housing: House Alcohol intake: current Alcohol intake frequency: a few times a week Alcohol type: beer and wine Patient Tobacco Use Status: Former Tobacco user Quit Date: 2006 Tobacco use type: Cigarette Years Smoked: 15 e-Cigarette/Vaping Use: Never Used Second Hand Smoke Exposure: No Use of substances other than those prescribed or required for medical reasons: No Have you been hit, kicked, punched, or otherwise hurt by someone within the past year? If so, by whom?: No Are you DNR?: No Advance Directives: No Advance Directives Information Provided: Yes Advance Directives on File: No Recently lost weight without trying: No Eating poorly because of decreased appetite: No Nutrition Risks: No Nutritional Risk service: Yes ([facility]) Current occupational status: employed Current occupational exposures/hazards: No Cognitive needs: No Hearing needs: No Vision needs: Yes Meds Allergies Allergy/AdvReac Type Severity Reaction Status Date / Time Penicillins [PENICILLINS] Allergy Intermediate UNKNOWN Verified 01/17/22 16:26 REACTION-CHILDHOOD ALLERGY Active Medications: Current Medications Lactated Ringer's (Lr) 1,000 mls @ 100 mls/hr IVCONT .Q10H ROSALINA Last Admin: 03/04/22 07:59 Dose: 100 mls/hr Sodium Biphosphate/Sodium Phosphate (Sodium Phosphate,[place]-Dibasic 133 Ml Enema) 133 ml FL ONCE PRN PRN Reason: Pre-Op Surgical Prep Last Admin: 03/04/22 08:01 Dose: 133 ml Exam Exam Date and Time: March 04, 2022 0829 Height,Weight and Vital Signs: Height 6 ft Weight 88.677 kg Last Vital Signs Temp 97.5 F 03/04/22 07:47 Pulse 73 03/04/22 07:47 Resp 16 03/04/22 07:47 BP 144/96 H 03/04/22 07:47 Pulse Ox 98 03/04/22 07:47 O2 Del Method 03/04/22 07:47 Airway Mallampati Class: II TM Dist: >3cm Neck ROM: Full Assessment and Plan Final Anesthetic Review Family History of Problems with Anesthesia: No History of Problems with Anesthesia: No NPO: Yes ASA Class: II Final Preanesthetic Review: No Changes in Pt Med Stat, Meds/Allgs Chart Reviewed, Consent Obtained/Reviewed and Anes Risks/Benef Reviewed Patient Risk: Low Procedure Risk: Low Anesthetic Plan Anesthetic Plan: MAC: Disposition: Standard PACU
--- NOTE | 2022-03-04 08:29 | MHC.SHP ---
Pre-Procedural Eval Section A Date of Service: 03/04/22 Section B Chief Complaint: Personal history of other diseases of the digestiv Details of Present Illness: hx of malignant rectal polyp in July 2021 Relevant Family History (Specify if Yes): No Relevant Social History: None Present Medications: see Short Stay Collaborative assessment (ARON, GERD) Allergies: Allergies Allergy/AdvReac Type Severity Reaction Status Date / Time Penicillins [PENICILLINS] Allergy Intermediate UNKNOWN Verified 01/17/22 16:26 REACTION-CHILDHOOD ALLERGY Review of Systems Sugical H&P ROS: Negative: Constitution, Cardiovascular, Respiratory, Neurological, Psychiatric, Hem-Onc, Allergic/Immunologic, Gastrointestinal, Genitourinary, Musculoskeletal, Integumentary, Endocrine and Eyes/Ears/Nose/Throat Exam Surgical H&P Exam: Normal: HEENT, Normal: Heart, Normal: Lungs, Normal: Extremities, Normal: Abdomen, Normal: Skin and Normal: Neurological Plan Diagnosis/Plan: Unchanged I have reviewed the history and physical and performed a pertinent physical examination on my patient. No changes have occurred unless specified. Time Spent With Patient Time: Total time managing care of this patient today ____ minutes.
--- NOTE | 2022-03-04 08:53 | W.PM.OPN ---
Operative Note Operative Note Date of Service: 03/04/22 Narrative: Preop diagnosis: History of malignant rectal polyp Postop diagnosis: 1. Small polyp, 2-3 mm at level 20 cm, removed with biopsy forceps 2. Ink markings at level 10 cm the likely previous polypectomy site, biopsies taken Procedure: Flexible sigmoidoscopy to 30 cm, biopsy of previous polypectomy site, and polypectomy using cold forceps The patient is a 51-year-old male with polypectomy done last July,. This polyp removed had adenocarcinoma. I have recommended close surveillance. He understood the technique of flexible sigmoidoscopy and was aware of the risks, benefits, and alternatives. He was brought to the operating room placed in left lateral decubitus position under monitored anesthesia care. A surgical time-out was done. A full digital rectal was done. There were no palpable anal lesions. The tip of the Olympus colonoscope introduced through the anal orifice advanced with some insufflation to level 30 cm. We then proceeded to withdraw the scope with careful examination of the mucosa being done with scope withdrawal. There was note of good visualization of the mucosa. There was note of a small polyp about 2-3 mm at level 20 cm. There was removed using multiple bites of the cold forceps. The tattoo markings at level 10 cm were seen. There were no lesions on this area. I proceeded to do biopsies of appeared to be a scar. There was note of good hemostasis. The rest of the distal rectum and anus were unremarkable pit the scope was then withdrawn completely with desufflation The patient tolerated procedure well. There were no immediate complications. Depending on the path report, I would probably require repeat the sigmoidoscopy in 6 months.
[2022-03-04 08:57] VITALS: BP 126/73; PULSE 75; RESP 20; TEMP 36.4; O2SAT 97
[2022-03-04 09:12] VITALS: BP 132/88; PULSE 73; RESP 16; TEMP 36.6; O2SAT 99
--- NOTE | 2022-03-04 09:50 | PC.NURSE ---
dr. cardoza visited with pt in discharge regarding findings and f/u.
== END 2022-03-04 09:50 | disposition home or self-care (01) ==
PROVIDERS: PCP Internal Medicine; Visit Provider Surgery
PROC: 0DJD8ZZ Inspection of Lower Intestinal Tract, Via Natural or Artificial Opening Endoscopic (ICD-10-PCS; CPT 45330; principal; 2022-03-04 09:20)
DX: Z12.11 Encounter for screening for malignant neoplasm of colon (principal); Z85.048 Personal history of other malignant neoplasm of rectum, rectosigmoid junction, and anus; K63.5 Polyp of colon; K21.9 Gastro-esophageal reflux disease without esophagitis; E78.5 Hyperlipidemia, unspecified; G47.33 Obstructive sleep apnea (adult) (pediatric); I49.3 Ventricular premature depolarization; H16.139 Photokeratitis, unspecified eye; Z79.1 Long term (current) use of non-steroidal anti-inflammatories (NSAID); Z79.899 Other long term (current) drug therapy; Z99.89 Dependence on other enabling machines and devices; Z88.0 Allergy status to penicillin; Z98.890 Other specified postprocedural states; Z87.19 Personal history of other diseases of the digestive system; Z87.891 Personal history of nicotine dependence
CPT/HCPCS: 45331; 88305

== ENCOUNTER 2022-03-30 14:11 | Outpatient (REF) | payer OTHER, SELFPAY ==
[2022-03-30 16:07] LABS: Carcinoembryonic Antigen < 1.73 ng/mL
== END 2022-03-30 14:12 | disposition home or self-care (01) ==
LOC: HO.LAB 14:11
PROVIDERS: PCP Internal Medicine; Visit Provider Surgery
DX: Z85.048 Personal history of other malignant neoplasm of rectum, rectosigmoid junction, and anus (principal); Z98.890 Other specified postprocedural states; Z87.19 Personal history of other diseases of the digestive system
CPT/HCPCS: 36415; 82378; 99212

== ENCOUNTER → 2022-07-18 15:04 | Outpatient (BNVA) | payer OTHER, SELFPAY | PROVIDERS: PCP Internal Medicine; Referring Provider Internal Medicine; Visit Provider Surgery | DX: Z85.048 Personal history of other malignant neoplasm of rectum, rectosigmoid junction, and anus (principal) | CPT/HCPCS: 99212 ==

== ENCOUNTER 2022-08-16 07:28 | Day surgery (SDC) | payer OTHER, SELFPAY ==
[2022-08-11 15:02] VITALS: BMI 26.6
--- NOTE | 2022-08-16 07:55 | PC.NURSE ---
report given to cristin coy at this time.
[2022-08-16 08:10] VITALS: BP 146/83; PULSE 76; RESP 16; TEMP 36.6; O2SAT 97
--- NOTE | 2022-08-16 08:47 | HO.ANESPROP2 ---
HPI - Anesthesia Eval Consult details Narrative: for colonoscopy, history of rectal ca PMFSH Active Problems Active Problems: All Active Problems (Updated 07/18/22 @ 15:29 by Noe Hummel MD) Abnormal stress ECG (Acute) Encounter for screening colonoscopy (Acute) Colon cancer (Acute) Rectal adenocarcinoma (Acute) Umbilical hernia (Acute) Physical exam (Acute) Foot pain (Acute) History of rectal cancer (Acute) History of rectal polypectomy (Acute) ARON on CPAP (Acute) Skin lesion (Acute) Hyperlipidemia (Acute) Chest pain (Acute) PVC (premature ventricular contraction) (Acute) GERD (gastroesophageal reflux disease) (Acute) Past Medical History Medical History Actinic keratitis Chest pain GERD (gastroesophageal reflux disease) History of rectal cancer Hyperlipidemia ARON on CPAP PVC (premature ventricular contraction) Rectal adenocarcinoma Skin lesion Family History Family History Father Prostate CA Mother Gastric cancer Cancer Brother Skin cancer Maternal Grandfather Throat cancer Lung cancer Paternal Uncle Throat cancer Lung cancer Paternal Aunt Gastric cancer Brother Melanoma Family history of problems with anesthesia: No Surgical History Surgical History History of arthroscopy of right knee History of flexible sigmoidoscopy (03/04/22) History of hand surgery History of inguinal hernia repair History of rectal polypectomy History of removal of cyst History of sigmoidoscopy Hx of colonoscopy Hx of umbilical hernia repair History of Problems with Anesthesia: No Social History Social History Household Members: Spouse Housing: House Alcohol intake: current Alcohol intake frequency: a few times a week Alcohol type: beer and wine Patient Tobacco Use Status: Former Tobacco user Quit Date: 2006 Tobacco use type: Cigarette Years Smoked: 15 e-Cigarette/Vaping Use: Never Used Second Hand Smoke Exposure: No Are you DNR?: No Advance Directives: No Advance Directives Information Provided: Yes Nutrition Risks: No Nutritional Risk service: Yes ([place]) Current occupational status: employed Current occupational exposures/hazards: No Cognitive needs: No Hearing needs: No Vision needs: Yes Meds Allergies Allergy/AdvReac Type Severity Reaction Status Date / Time Penicillins [PENICILLINS] Allergy Intermediate UNKNOWN Verified 07/18/22 15:12 REACTION-CHILDHOOD ALLERGY Active Medications: Current Medications Lactated Ringer's (Lr) 1,000 mls @ 100 mls/hr IVCONT .Q10H ROSALINA Exam Exam Date and Time: August 16, 2022 0847 Height,Weight and Vital Signs: Height 6 ft Weight 88.904 kg Last Vital Signs Temp 97.8 F 08/16/22 08:10 Pulse 76 08/16/22 08:10 Resp 16 08/16/22 08:10 BP 146/83 H 08/16/22 08:10 Pulse Ox 97 08/16/22 08:10 O2 Del Method Room Air 08/16/22 08:10 Airway Mallampati Class: II TM Dist: >3cm Neck ROM: Full Heart: rrr Lungs: cta Assessment and Plan Assessment Anesthesia Assessment: Anesthesia Plan Discussed and Chart Reviewed Final Anesthetic Review Family History of Problems with Anesthesia: No History of Problems with Anesthesia: No NPO: Yes Final Preanesthetic Review: No Changes in Pt Med Stat, Meds/Allgs Chart Reviewed, Consent Obtained/Reviewed and Anes Risks/Benef Reviewed Patient Risk: Low Procedure Risk: Low Anesthetic Plan Anesthetic Plan: MAC: Disposition: Standard PACU (stress test negative for ischemia.)
--- NOTE | 2022-08-16 09:50 | MHC.SHP ---
Pre-Procedural Eval Section A Date of Service: 08/16/22 The patient is an INPATIENT: No Changes since office visit: No Cold of Flu in the past 2 weeks, No New Medical Problems, No Changes in Medication and No Patient answered all questions The History & Physical has been completed within 30 days and I have reviewed it.: Yes Section B Chief Complaint: Personal history of other malignant neoplasm of re Allergies: Allergies Allergy/AdvReac Type Severity Reaction Status Date / Time Penicillins [PENICILLINS] Allergy Intermediate UNKNOWN Verified 07/18/22 15:12 REACTION-CHILDHOOD ALLERGY Plan I have reviewed the history and physical and performed a pertinent physical examination on my patient. No changes have occurred unless specified. Time Spent With Patient Time: Total time managing care of this patient today ____ minutes.
--- NOTE | 2022-08-16 10:41 | W.PM.OPN ---
Operative Note Operative Note Date of Service: 08/16/22 Narrative: Preop diagnosis: History of malignant rectal polyp Postop diagnosis: History of malignant rectal polyp, otherwise normal colonoscopy findings Procedure: Colonoscopy Surgeon: Noe Hummel MD The patient is a 52-year-old male, what a polyp removed in the rectum last year by Dr. Cooney. The path reported shown an adenocarcinoma in the polyp. This was removed with hot snare. The margins were negative I have been following him with flexible sigmoidoscopies but he is scheduled to have a colonoscopy this time. He understood the technique of the planned procedure as well as the risks, benefits, and alternatives. The patient was brought to the operating room and placed in left lateral decubitus position under monitored anesthesia care. A surgical time-out was done. A full digital rectal exam was done and this did not reveal any significant anal lesions. The tip of the Olympus colonoscope was gently introduced through the anal orifice advanced with insufflation all the way to the cecum. The cecum was intubated. The cecum was identified by visualization of the ileocecal valve as well as the appendiceal orifice. The cecal mucosa was unremarkable. The scope was gradually withdrawn with careful examination of the entire colonic mucosa being done with scope withdrawal. The patient had adequate bowel prep so it was unlikely that any lesion may have been missed. The rectum was reached and there were no lesions seen. I saw the to markings at about 10 cm. I made put tubal passes that this area. There was no evidence of any new lesion or any recurrent lesion. There was no abnormal mucosa. The anal canal was unremarkable. The scope was then withdrawn completely with desufflation The patient tolerated procedure well. There were no immediate complications. I will schedule him for another sigmoidoscopy next year.
[2022-08-16 10:45] VITALS: BP 106/64; PULSE 97; RESP 20; TEMP 36.4; O2SAT 97
[2022-08-16 11:00] VITALS: BP 108/81; PULSE 76; RESP 20; TEMP 36.4; O2SAT 97
== END 2022-08-16 11:27 | disposition home or self-care (01) ==
PROVIDERS: PCP Internal Medicine; Visit Provider Surgery
PROC: 0DBE8ZZ Excision of Large Intestine, Via Natural or Artificial Opening Endoscopic (ICD-10-PCS; CPT 45378; principal; 2022-08-16 09:50)
DX: Z85.048 Personal history of other malignant neoplasm of rectum, rectosigmoid junction, and anus (principal); G47.33 Obstructive sleep apnea (adult) (pediatric); Z99.89 Dependence on other enabling machines and devices; Z88.0 Allergy status to penicillin
CPT/HCPCS: 45378

== ENCOUNTER → 2022-08-16 07:28 | Outpatient (BNV) | payer OTHER, SELFPAY | PROVIDERS: PCP Internal Medicine; Visit Provider Surgery | DX: Z86.010 Personal history of colon polyps (principal) | CPT/HCPCS: 45378 ==

== ENCOUNTER 2022-09-01 15:49 | Outpatient (AMB) | payer OTHER, SELFPAY ==
--- NOTE | 2022-09-01 15:51 | MHC.OFFVIS ---
Intake Vital Signs 09/01/22 15:56 Height 6 ft Weight 196 lb BMI 26.6 BP 141/77 H Blood Pressure Location Rt brachial Position Sitting Respiration 71 H Intake Visit Reasons: S/P colonoscopy Intake Note: This patient presents for an assessment for follow-up status post colonoscopy. Patient denies complaints at this time. 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 Accompanied by: Self / Same As Patient Allergies Penicillins [PENICILLINS] Allergy (Intermediate, Verified 09/01/22 15:52) UNKNOWN REACTION-CHILDHOOD ALLERGY Medication List - Last Reconciled 09/01/22 by Noe Hummel MD ibuprofen 600 mg PO Q6H PRN pantoprazole 20 mg PO QAM rosuvastatin (Crestor) 10 mg PO DAILY sodium,potassium,mag sulfates 17.5-3.13-1.6 gram (Suprep Bowel Prep Kit) DILUTE; drink full amount early evening before AND next morning at least 2 hr before procedure; follow w 960 mL water PO HPI S/P colonoscopy HPI Details He had undergone full colonoscopy last August 16 because of history of a malignant rectal polyp. He tolerated procedure well and currently denies significant complaints. [facility] Medical History Actinic keratitis Chest pain GERD (gastroesophageal reflux disease) History of rectal cancer Hyperlipidemia ARON on CPAP PVC (premature ventricular contraction) Rectal adenocarcinoma Skin lesion Surgical History (Updated 09/01/22 @ 15:57 by ISABELL Mcdonald) History of arthroscopy of right knee History of colonoscopy (~2022) History of flexible sigmoidoscopy (03/04/22) History of hand surgery History of inguinal hernia repair History of rectal polypectomy History of removal of cyst History of sigmoidoscopy Hx of colonoscopy Hx of umbilical hernia repair Family History Father Prostate CA Mother Gastric cancer Cancer Brother Skin cancer Maternal Grandfather Throat cancer Lung cancer Paternal Uncle Throat cancer Lung cancer Paternal Aunt Gastric cancer Brother Melanoma Social History Household Members: Spouse Housing: House Alcohol intake: current Alcohol intake frequency: a few times a week Alcohol type: beer and wine Patient Tobacco Use Status: Former Tobacco user Quit Date: 2006 Tobacco use type: Cigarette Years Smoked: 15 e-Cigarette/Vaping Use: Never Used Second Hand Smoke Exposure: No service: Yes ([employer]) Current occupational status: employed Current occupational exposures/hazards: No Cognitive needs: No Hearing needs: No Vision needs: Yes Review of Systems Const Denies chills and Denies fever(s) Card Denies chest pain, Denies dyspnea and Denies dyspnea on exertion Resp Denies cough, Denies dyspnea and Denies dyspnea on exertion GI Denies hematochezia and Denies change in bowel habits Denies hematuria and Denies difficulty urinating Musc Denies back pain and Denies limited range of motion Neuro Denies focal weakness and Denies convulsions Psych Denies depression and Denies mood swings Physical Exam Vital Signs: Last Vital Signs Resp 71 H 09/01/22 15:56 BP 141/77 H 09/01/22 15:56 BMI result Body Mass Index 26.6 Const General: comfortable and no acute distress Orientation/consciousness: patient oriented x3 Neck Neck: Yes no lymphadenopathy Resp Auscultation: clear to auscultation bilaterally Cardio Rhythm: regular rhythm GI Palpation (GI): Soft to palpation, nontender and no guarding Neuro General: patient oriented x3 Assessment & Plan Assessment & Plan (1) History of rectal cancer: Code(s): Z85.048 - Personal history of other malignant neoplasm of rectum, rectosigmoid junction, and anus Plan: He had the malignant rectal polyp removed last year. I repeated his colonoscopy two weeks ago. I did not see any evidence of any recurrence or any abnormal mucosa on the segment where the previous polyp was removed. I would recommend repeating the sigmoidoscopy in the next 6 months. I repeat his CEA level next month. Orders: Orders Carcinoembryonic Antigen Today Z85.048 - Personal history of other malignant neoplasm of rectum, rectosigmoid junction, and anus Coding Level of Care Code Est Pt Level 3 (39451) Diagnoses History of rectal cancer Z85.048
[2022-09-01 15:56] VITALS: BP 141/77; RESP 71; BMI 26.6
== END 2022-09-01 16:06 | disposition home or self-care (01) ==
PROVIDERS: PCP Internal Medicine; Visit Provider Surgery
DX: Z85.048 Personal history of other malignant neoplasm of rectum, rectosigmoid junction, and anus (principal)
CPT/HCPCS: 99213

== ENCOUNTER → 2022-09-01 15:49 | Outpatient (BNVA) | payer OTHER, SELFPAY | PROVIDERS: PCP Internal Medicine; Visit Provider Surgery | DX: Z85.048 Personal history of other malignant neoplasm of rectum, rectosigmoid junction, and anus (principal) | CPT/HCPCS: 99212 ==

== ENCOUNTER 2022-09-30 14:58 | Outpatient (REF) | payer OTHER, SELFPAY ==
[2022-09-30 16:28] LABS: Carcinoembryonic Antigen < 1.73 ng/mL
== END 2022-09-30 14:59 | disposition home or self-care (01) ==
LOC: HO.LAB 14:58
PROVIDERS: Visit Provider Surgery
DX: Z85.048 Personal history of other malignant neoplasm of rectum, rectosigmoid junction, and anus (principal)
CPT/HCPCS: 36415; 82378

== ENCOUNTER 2022-11-07 14:27 | Outpatient (AMB) | payer OTHER, SELFPAY ==
--- NOTE | 2022-11-07 14:38 | A.OFFPC_ITS ---
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 Accompanied by: Self / Same As Patient Allergies Penicillins [PENICILLINS] Allergy (Intermediate, Verified 11/07/22 14:53) UNKNOWN REACTION-CHILDHOOD ALLERGY Medication List - Last Reconciled 11/07/22 by Bebe Olguin MD ibuprofen 600 mg PO Q6H PRN pantoprazole 20 mg PO QAM rosuvastatin 10 mg PO DAILY Tobacco use date assessed: 11/07/22 Dental Screening Dental Screen Date: 11/07/22 Did you have a dental visit in the last 12 months?: Yes Did you have a dental problem in the last 6 months where you did not have access to dental care?: No Was dental information given to patient?: Patient has dentist HPI HPI Comments History of Present Illness Details This is a 52-year-old male with history of rectal adenocarcinoma that was successfully treated comes for his physical exam. Denies any chest pain or shortness of breath. Compliant with medications. Last colonoscopy was August 2022. [facility] Medical History History of rectal cancer Rectal adenocarcinoma Actinic keratitis ARON on CPAP Skin lesion Hyperlipidemia Chest pain PVC (premature ventricular contraction) GERD (gastroesophageal reflux disease) Surgical History History of colonoscopy (~2022) History of flexible sigmoidoscopy (03/04/22) Hx of umbilical hernia repair History of rectal polypectomy History of sigmoidoscopy Hx of colonoscopy History of hand surgery History of removal of cyst History of arthroscopy of right knee History of inguinal hernia repair Family History Father Prostate CA Mother Gastric cancer Cancer Brother Skin cancer Maternal Grandfather Throat cancer Lung cancer Paternal Uncle Throat cancer Lung cancer Paternal Aunt Gastric cancer Brother Melanoma Social History Household Members: Spouse Housing: House Alcohol intake: current Alcohol intake frequency: a few times a week Alcohol type: beer and wine Patient Tobacco Use Status: Former Tobacco user Quit Date: 2006 Tobacco use type: Cigarette Years Smoked: 15 e-Cigarette/Vaping Use: Never Used Second Hand Smoke Exposure: No service: Yes ([employer]) Current occupational status: employed Current occupational exposures/hazards: No Cognitive needs: No Hearing needs: No Vision needs: Yes Questionnaire PHQ-9 Over the last 2 weeks, how often have you been bothered by any of the following problems? 1. Little interest or pleasure in doing things: not at all 2. Feeling down, depressed, or hopeless: not at all 3. Trouble falling or staying asleep, or sleeping too much: not at all 4. Feeling tired or having little energy: not at all 5. Poor appetite or overeating: not at all 6. Feeling bad about yourself - or that you are a failure or have let yourself or your family down: not at all 7. Trouble concentrating on things, such as reading the newspaper or watching television: not at all 8. Moving or speaking so slowly that other people could have noticed. Or the opposite - being so fidgety or restless that you have been moving around a lot more than usual: not at all 9. Thoughts that you would be better off or of hurting yourself in some way: not at all Total score: 0 Depression Screening Interpretation: Negative 79572 - PHQ-9 Billing: Yes Source: Developed by Drs. Bud Wells, Rita Powers, José Miguel Jenkins and colleagues, with an educational yefri from [employer]. Thrive Questionnaire Date Thrive assessed: 11/07/22 I am a: Patient What is your living situation today?: I have a steady place to live Within the past 12 months, did the food you bought not last and you didn't have the money to get more?: Never true Within the past 12 months, did you worry whether your food would run out before you got money to buy more?: Never true Do you have trouble paying for medicines?: No Do you have trouble getting transportation to medical appointments?: No Do you have trouble paying your heating and electricity bill?: No Do you have trouble taking care of your child, family member or friend?: No Do you have trouble with day-to-day activities such as bathing, preparing meals, shopping, managing finances, etc.?: No Are you currently unemployed and looking for a job?: No Are you interested in more education?: No Please select the resources that you would like help with: None Currently or been in a relationship where the following occur: no concerns reported AUDIT C Alcohol Use Questionnaire (AUDIT-C) 1. How often do you have a drink containing alcohol?: 2-3 times a week 2. How many drinks containing alcohol do you have on a typical day when you are drinking?: 1 or 2 3. How often do you have six or more drinks on one occasion?: Never Total Score: 3 Score Reviewed/Action Taken: Yes ANKUSH-7 AMB Questionnaire ANKUSH-7 Date ANKUSH - 7 assessed: 11/07/22 Feeling nervous, anxious, or on edge: 0 = Not at all Not being able to stop or control worryin = Not at all Worrying too much about different things: 0 = Not at all Trouble relaxin = Not at all Being so restless that it is hard to sit still: 0 = Not at all Becoming easily annoyed or irritable: 0 = Not at all Feeling afraid as if something awful might happen: 0 = Not at all Total ANKUSH-7 score (0-4 normal; 5-9 mild; 10-14 moderate; 15-21 severe): 0 Source: Developed by Drs. Bud Wells, Rita Powers, José Miguel Jenkins and colleagues, with an educational yefri from [employer]. ANKUSH-7 Assessment Billing ANKUSH-7 Assessment Tool: ANKUSH-7 Assessment 95647 Review of Systems Const All systems reviewed & are unremarkable except as noted in HPI and below Eyes Reports no additional complaints, Denies change in vision and Denies other visual disturbances Card Denies chest pain at rest, Denies chest pain with activity, Denies edema, Denies irregular heart rhythm, Denies claudication, Denies dyspnea, Denies dyspnea on exertion, Denies orthopnea, Denies paroxysmal nocturnal dyspnea and Denies slow heart rate Resp Denies cough, Denies dyspnea and Denies dyspnea on exertion GI Denies abdominal pain, Denies change in bowel habits, Denies excessive flatus, Denies nausea and Denies vomiting Denies urinary hesitancy, Denies urinary incontinence and Denies urinary urgency Musc Denies abnormal gait, Denies atrophy, Denies deformity and Denies limited range of motion Skin/Breast Denies bleeding lesions, Denies changing lesions and Denies rash Neuro Denies abnormal gait and Denies lack of coordination Physical exam (Primary Care) Vital Signs: Last Vital Signs BP 132/86 11/07/22 14:40 BMI result Body Mass Index 26.6 Tobacco/Smoking Status: Tobacco use Status Tobacco use date assessed 11/07/22 11/07/22 14:44 Patient Tobacco Use Status Former Tobacco user 11/07/22 14:44 Tobacco use type Cigarette 11/07/22 14:44 e-Cigarette/Vaping Use Never Used 11/07/22 14:44 PHQ-9: PHQ-9 Score PHQ-9: Total score 0 11/07/22 14:58 Depression Screening Interpretation: Negative Thrive Assessment: Date of Thrive Assessment Date Thrive assessed 11/07/22 11/07/22 14:44 Currently or been in a relationship where the following occur: no concerns reported Const Orientation/consciousness: patient oriented x3 HENMT Head: Yes normal to inspection, Yes normocephalic and Yes atraumatic Ears: external ears normal Eyes General: appearance normal, both eyes and all related structures Eyelids: Yes eyelids normal Conjunctivae: conjunctivae normal Neck Neck: Yes normal visual inspection and Yes supple Resp Effort & Inspection: normal respiratory effort Auscultation: clear to auscultation bilaterally Cardio Jugular venous distension: no JVD Rate: regular rate Rhythm: regular rhythm Heart sounds: S1 normal heart sound present and S2 normal heart sound present GI Inspection: Yes normal to inspection Palpation (GI): Soft to palpation and nontender Auscultation: normal bowel sounds Skin General skin exam: no rashes or lesions noted Neuro General: patient oriented x3 and no focal motor deficits Extrem General: Yes full ROM Psych Appearance: grossly normal Office Procedures Flu Questionnaire Does the patient have a severe egg allergy?: No Immunizations flu vacc [id number] 6mos up(PF) 60 mcg(15 mcgx4)/0.5 mL IM syringe Performing Provider: Bebe Olguin MD [facility] Documented (not given) by: ISABELL Puga on 11/07/22 14:46 Reason Not Given: Patient Refused Assessment and Plan Assessment & Plan (1) Physical exam: Code(s): Z00.00 - Encounter for general adult medical examination without abnormal findings Plan: Repeat in a year (2) Rectal adenocarcinoma: Code(s): C20 - Malignant neoplasm of rectum Plan: Follow-up with Gastroenterology Orders: Orders Lipid Panel Today E78.5 - Hyperlipidemia, unspecified Influenza [phone] Immunization Today Z23 - Encounter for immunization Comprehensive [place]. Panel Fast Today Z00.00 - Encounter for general adult medical examination without abnormal findings Coding Level of Care Code Est Pt Prev Care 40-64y(14560) Diagnoses Physical exam Z00.00 Rectal adenocarcinoma C20 Additional Codes ANKUSH-7 Assessment Billing - ANKUSH-7 Assessment Tool: ANKUSH-7 Assessment 43233 ([id number]) Time Spent (min) 30
[2022-11-07 14:40] VITALS: BP 132/86; PULSE 78; BMI 26.6
== END 2022-11-07 15:02 | disposition home or self-care (01) ==
PROVIDERS: Visit Provider Internal Medicine
DX: Z00.00 Encounter for general adult medical examination without abnormal findings (principal); C20 Malignant neoplasm of rectum
CPT/HCPCS: 99396

== ENCOUNTER 2022-11-26 07:24 | Outpatient (REF) | payer OTHER, SELFPAY ==
[2022-11-26 09:01] LABS: Alanine Aminotransferase 37 U/L (0-40); Albumin Level 4.5 g/dL (3.5-5.0); Alkaline Phosphatase 63 U/L (39-117); Anion Gap 14 (12-20); Aspartate Amino Transferase 22 U/L (5-37); Bilirubin Total 0.9 mg/dL (0.0-1.0); Blood Urea Nitrogen 17 mg/dL (9-16); Carbon Dioxide 25 mmol/L (22-29); Chloride 107 mmol/L (96-108); Cholesterol 170 mg/dL (<200); Estimated Glomerular Filt Rate > 60; Glucose Fasting 108 mg/dL (60-99); HDL Cholesterol 42 mg/dL (>40); LDL Cholesterol Calculated 95 mg/dL (<100); Potassium 4.4 mmol/L (3.3-5.1); Sodium 142 mmol/L (135-145); Total Protein 7.3 g/dL (6.5-8.0); Triglycerides 166 mg/dL (<150)
== END 2022-11-26 07:25 | disposition home or self-care (01) ==
LOC: HO.LAB 07:24
PROVIDERS: Surgery; PCP Internal Medicine; Visit Provider Internal Medicine
DX: Z00.00 Encounter for general adult medical examination without abnormal findings (principal); E78.5 Hyperlipidemia, unspecified; Z85.048 Personal history of other malignant neoplasm of rectum, rectosigmoid junction, and anus; Z98.890 Other specified postprocedural states
CPT/HCPCS: 36415; 80053; 80061; 82378

== ENCOUNTER 2023-01-02 12:30 | Outpatient (AMB) | payer OTHER, SELFPAY ==
[2023-01-02 13:20] VITALS: BP 126/76; PULSE 80; TEMP 36.6; O2SAT 96; BMI 26.6
--- NOTE | 2023-01-02 13:20 | MHC.OFFWIV ---
Intake Vital Signs 01/02/23 13:20 Height 6 ft Weight 196 lb BMI 26.6 BP 126/76 Blood Pressure Location Rt brachial Position Sitting Pulse 80 Pulse Source Pulse Oximeter Temp 97.8 F Temp Source Temporal Artery Scan Pulse Oximetry (%) 96 Oxygen Delivery Method Room Air Intake Visit Reasons: EP Cold or Flu symptoms [phone] Intake Note: pt is here for c.o dry cough, extreme headache, chest congestion Patient Tobacco Use Status: Former Tobacco user Quit Date: 2006 Allergies Penicillins [PENICILLINS] Allergy (Intermediate, Verified 01/02/23 13:21) UNKNOWN REACTION-CHILDHOOD ALLERGY Do you need a note to return to daycare/school/sports/work: Yes HPI EP Cold or Flu symptoms [phone] HPI Details 52-year-old male presents to the office for a sick visit. Patient is reporting symptoms of headache, sinus congestion and postnasal drip. He is had his flu shot for this season. [facility] Medical History History of rectal cancer Rectal adenocarcinoma Actinic keratitis ARON on CPAP Skin lesion Hyperlipidemia Chest pain PVC (premature ventricular contraction) GERD (gastroesophageal reflux disease) Surgical History History of colonoscopy (~2022) History of flexible sigmoidoscopy (03/04/22) Hx of umbilical hernia repair History of rectal polypectomy History of sigmoidoscopy Hx of colonoscopy History of hand surgery History of removal of cyst History of arthroscopy of right knee History of inguinal hernia repair Family History Father Prostate CA Mother Gastric cancer Cancer Brother Skin cancer Maternal Grandfather Throat cancer Lung cancer Paternal Uncle Throat cancer Lung cancer Paternal Aunt Gastric cancer Brother Melanoma Household Members: Spouse Housing: House Alcohol intake: current Alcohol intake frequency: a few times a week Alcohol type: beer and wine Patient Tobacco Use Status: Former Tobacco user Quit Date: 2006 Tobacco use type: Cigarette Years Smoked: 15 e-Cigarette/Vaping Use: Never Used Second Hand Smoke Exposure: No service: Yes ([employer]) Current occupational status: employed Current occupational exposures/hazards: No Cognitive needs: No Hearing needs: No Vision needs: Yes Physical Exam Vital Signs: Last Vital Signs Temp 97.8 F 01/02/23 13:20 Pulse 80 01/02/23 13:20 BP 126/76 01/02/23 13:20 Pulse Ox 96 01/02/23 13:20 Oxygen Delivery Method Room Air 01/02/23 13:20 BMI result Body Mass Index 26.6 Const General: cooperative and healthy appearing Nutritional Appearance: well nourished Orientation/consciousness: patient oriented x3 Limitations: no limitations HEENT Head: Yes normal to inspection Eyes General: appearance normal, both eyes and all related structures Neck Neck: Yes normal visual inspection Chest Chest palpation & inspection: normal palpation of entire chest wall Resp Effort & Inspection: normal respiratory effort Neuro General: patient oriented x3 Assessment & Plan Assessment & Plan (1) Upper respiratory tract infection: Code(s): J06.9 - Acute upper respiratory infection, unspecified Plan Antibiotics ordered. Increase fluid intake. Tylenol for aches and pains. If symptoms worsen, follow-up here for a recheck. Orders: Orders SARS-CoV2/FLU/RSV Today R43.9 - Unspecified disturbances of smell and taste Coding Level of Care Code Est Pt Level 3 (87735) Diagnoses Upper respiratory tract infection J06.9
== END 2023-01-02 14:17 | disposition home or self-care (01) ==
PROVIDERS: PCP Internal Medicine; Visit Provider Internal Medicine
DX: J06.9 Acute upper respiratory infection, unspecified (principal)
CPT/HCPCS: 99213

== ENCOUNTER 2023-01-02 15:26 | Outpatient (REF) | payer OTHER, SELFPAY ==
[2023-01-02 17:06] LABS: Influenza A PCR NEGATIVE (Negative); Influenza B PCR NEGATIVE (Negative); Resp Syncy Virus RNA Qual PCR NEGATIVE (Negative); SARS COV2 PCR INHOUSE NEGATIVE (Negative)
== END 2023-01-02 15:27 | disposition home or self-care (01) ==
LOC: HO.LAB 15:26
PROVIDERS: Visit Provider Internal Medicine
DX: Z11.52 Encounter for screening for COVID-19 (principal); Z20.822 Contact with and (suspected) exposure to COVID-19; R43.9 Unspecified disturbances of smell and taste
CPT/HCPCS: 0241U

== ENCOUNTER 2023-03-08 08:54 | Outpatient (AMB) | payer OTHER, SELFPAY ==
[2023-03-08 09:29] VITALS: BP 140/70; PULSE 102; TEMP 38.3; O2SAT 97; BMI 27.4
--- NOTE | 2023-03-08 09:29 | MHC.OFFWIV ---
Intake Vital Signs 03/08/23 09:29 Height 6 ft Weight 202 lb BMI 27.4 BP 140/70 H Blood Pressure Location Lt brachial Position Sitting Pulse 102 H Pulse Source Pulse Oximeter Temp 100.9 F H Temp Source Temporal Artery Scan Pulse Oximetry (%) 97 Oxygen Delivery Method Room Air Intake Visit Reasons: EST/fever/body aches([phone]) Intake Note: pt is here today for fever body aches started yesterday Patient Tobacco Use Status: Former Tobacco user Quit Date: 2006 Allergies Penicillins [PENICILLINS] Allergy (Intermediate, Verified 03/08/23 09:31) UNKNOWN REACTION-CHILDHOOD ALLERGY Do you need a note to return to daycare/school/sports/work: No HPI HPI Comments History of Present Illness Details This is a 52-year-old male with a past medical history of hyperlipidemia and gastroesophageal reflux disease presenting for evaluation of fever, body aches nonproductive cough that started yesterday. Patient has been taking Mucinex only without relief of his symptoms. Upon presentation the patient is febrile and tachycardic. Patient states that his is also experiencing similar symptoms. [facility] Medical History History of rectal cancer Rectal adenocarcinoma Actinic keratitis ARON on CPAP Skin lesion Hyperlipidemia Chest pain PVC (premature ventricular contraction) GERD (gastroesophageal reflux disease) Surgical History History of colonoscopy (~2022) History of flexible sigmoidoscopy (03/04/22) Hx of umbilical hernia repair History of rectal polypectomy History of sigmoidoscopy Hx of colonoscopy History of hand surgery History of removal of cyst History of arthroscopy of right knee History of inguinal hernia repair Family History Father Prostate CA Mother Gastric cancer Cancer Brother Skin cancer Maternal Grandfather Throat cancer Lung cancer Paternal Uncle Throat cancer Lung cancer Paternal Aunt Gastric cancer Brother Melanoma Social History Household Members: Spouse Housing: House Alcohol intake: current Alcohol intake frequency: a few times a week Alcohol type: beer and wine Patient Tobacco Use Status: Former Tobacco user Quit Date: 2006 Tobacco use type: Cigarette Years Smoked: 15 e-Cigarette/Vaping Use: Never Used Second Hand Smoke Exposure: No service: Yes ([facility]) Current occupational status: employed Current occupational exposures/hazards: No Cognitive needs: No Hearing needs: No Vision needs: Yes Review of Systems Const All systems reviewed & are unremarkable except as noted in HPI and below Reports body aches, Denies chills, Reports fatigue, Reports fever(s), Reports lethargy and Reports malaise Eyes Reports no additional complaints ENT Reports no additional complaints Card Reports no additional complaints Resp Reports no additional complaints, Reports cough, Denies hemoptysis and Denies wheezing Musc Details: Myalgias Skin/Breast Reports system reviewed and no additional complaints, except as documented Endo Reports fatigue Aller/Immun Denies wheezing Physical Exam Vital Signs: Last Vital Signs Temp 100.9 F H 03/08/23 09:29 Pulse 102 H 03/08/23 09:29 BP 140/70 H 03/08/23 09:29 Pulse Ox 97 03/08/23 09:29 Oxygen Delivery Method Room Air 03/08/23 09:29 BMI result Body Mass Index 27.4 Febrile, tachycardic Const General: cooperative, comfortable, no acute distress and ill appearing; No acute distress Nutritional Appearance: average body habitus Orientation/consciousness: patient oriented x3 Limitations: no limitations HEENT Head: Yes normal to inspection Ears: hearing grossly normal bilaterally, external ears normal, TM's normal bilaterally and EAC's normal General nose exam: Normal external nose present Face and sinus: Yes normal facial exam and Yes sinuses nontender Mouth: Normal oral and palatal mucosa present and moist mucous membranes Teeth and gingiva: dentition normal Throat: No posterior oropharynx normal and Yes postnasal drainage Eyes Eyelids: Yes eyelids normal Conjunctivae: conjunctivae normal Sclerae: sclerae normal Corneas: corneas normal Pupils: Equal, round and reactive pupils present EOM: EOMs intact bilaterally Neck Neck: Yes normal visual inspection Lymphatic: no lymphadenopathy noted Resp Effort & Inspection: normal respiratory effort, no audible wheezes, no cough, no respiratory distress and not tachypneic Auscultation: clear to auscultation bilaterally Cardio Rate: tachycardic Rhythm: regular rhythm Neuro General: patient oriented x3 Cranial nerves: Yes Equal, round and reactive pupils present Psych Appearance: grossly normal Mental Status: mental status grossly normal Insight: Good insight present (Psych) Judgement: Good judgement present (Psych) Assessment & Plan Assessment & Plan (1) Fever: Comment: SARS panel pending Code(s): R50.9 - Fever, unspecified Qualifiers: Fever type: unspecified Qualified Code(s): R50.9 - Fever, unspecified Plan: Ibuprofen and Tylenol as needed for fever, stay very well hydrated with clear fluids daily. (2) Myalgia: Comment: Symptoms coupled with history are most consistent with influenza and the patient will be treated with Tamiflu. Code(s): M79.10 - Myalgia, unspecified site Plan: Tamiflu twice daily x5 days. Orders: Orders SARS-CoV2/FLU/RSV Today J01.90 - Acute sinusitis, unspecified Medications: New oseltamivir (Tamiflu) 75 mg PO BID 5 days 10 caps 0RF Coding Level of Care Code Est Pt Level 3 (72930) Diagnoses Fever, unspecified fever cause R50.9 Fever type: unspecified Myalgia M79.10 Time Spent (min) 25
== END 2023-03-08 10:52 | disposition home or self-care (01) ==
PROVIDERS: PCP Internal Medicine; Visit Provider Physician Assistant
DX: R50.9 Fever, unspecified (principal); M79.10 Myalgia, unspecified site
CPT/HCPCS: 99213

== ENCOUNTER 2023-03-08 11:50 | Outpatient (REF) | payer OTHER, SELFPAY ==
[2023-03-08 12:59] LABS: Influenza A PCR POSITIVE (Negative); Influenza B PCR NEGATIVE (Negative); Resp Syncy Virus RNA Qual PCR NEGATIVE (Negative); SARS COV2 PCR INHOUSE NEGATIVE (Negative)
== END 2023-03-08 11:51 | disposition home or self-care (01) ==
LOC: HO.LNP 11:50
PROVIDERS: Visit Provider Physician Assistant
DX: J01.90 Acute sinusitis, unspecified (principal); Z11.52 Encounter for screening for COVID-19; Z20.828 Contact with and (suspected) exposure to other viral communicable diseases
CPT/HCPCS: 0241U

== ENCOUNTER 2023-03-20 14:58 | Outpatient (AMB) | payer OTHER, SELFPAY ==
--- NOTE | 2023-03-20 15:01 | MHC.OFFVIS ---
Intake Vital Signs 03/20/23 15:07 Height 6 ft Weight 195 lb BMI 26.4 BP 149/80 H Blood Pressure Location Rt brachial Position Sitting Pulse 60 Intake Visit Reasons: 1 mth follow up hx rectal CA Intake Note: This patient presents for a one month follow-up assessment for rectal carcinoma. Pt c/o; reports no complaints at this time. 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 This was removed endoscopically. I had done his colonoscopy last August,. This did not reveal any evidence of any recurrent polyp. I had recommended doing a sigmoidoscopic exam within 6 months so he is here to schedule this. He denies GI complaints. He says he is doing well overall. He does admit to having been sick multiple times with an upper respiratory infection since December,. He also was diagnosed to have the flu 2 weeks ago. [facility] Medical History History of rectal cancer Rectal adenocarcinoma Actinic keratitis ARON on CPAP Skin lesion Hyperlipidemia Chest pain PVC (premature ventricular contraction) GERD (gastroesophageal reflux disease) Surgical History History of colonoscopy (~2022) History of flexible sigmoidoscopy (03/04/22) Hx of umbilical hernia repair History of rectal polypectomy History of sigmoidoscopy Hx of colonoscopy History of hand surgery History of removal of cyst History of arthroscopy of right knee History of inguinal hernia repair Family History Father Prostate CA Mother Gastric cancer Cancer Brother Skin cancer Maternal Grandfather Throat cancer Lung cancer Paternal Uncle Throat cancer Lung cancer Paternal Aunt Gastric cancer Brother Melanoma Social History Household Members: Spouse Housing: House Alcohol intake: current Alcohol intake frequency: a few times a week Alcohol type: beer and wine Patient Tobacco Use Status: Former Tobacco user Quit Date: 2006 Tobacco use type: Cigarette Years Smoked: 15 e-Cigarette/Vaping Use: Never Used Second Hand Smoke Exposure: No service: Yes ([facility]) Current occupational status: employed Current occupational exposures/hazards: No Cognitive needs: No Hearing needs: No Vision needs: Yes Review of Systems Const Denies chills and Denies fever(s) Card Denies chest pain, Denies dyspnea and Denies dyspnea on exertion Resp Denies cough, Denies dyspnea and Denies dyspnea on exertion GI Denies hematochezia and Denies change in bowel habits Denies hematuria and Denies difficulty urinating Musc Denies back pain and Denies limited range of motion Neuro Denies focal weakness and Denies convulsions Psych Denies depression and Denies mood swings Physical Exam Const General: comfortable and no acute distress Orientation/consciousness: patient oriented x3 Neck Neck: Yes no lymphadenopathy Resp Auscultation: clear to auscultation bilaterally Cardio Rhythm: regular rhythm GI Palpation (GI): Soft to palpation, nontender and no guarding Neuro General: patient oriented x3 Assessment & Plan Assessment & Plan (1) History of rectal cancer: Code(s): Z85.048 - Personal history of other malignant neoplasm of rectum, rectosigmoid junction, and anus Plan: He has a history of a malignant rectal polyp removed endoscopically in 2021. I have been following this closely with flexible sigmoidoscopy as well as colonoscopy I had recommended a flexible sigmoidoscopy after his colonoscopy last August,. I explained to him the technique of flexible sigmoidoscopy under anesthesia I discussed the risks including but not limited to bleeding, and perforation, as well as the benefits and alternatives. He has given consent.. This will be done in the operating room. I am also going to order for an abdominal and pelvic CT scan and repeat CEA as part of surveillance. Orders: Orders Blood Urea Nitrogen Today C20 - Malignant neoplasm of rectum Creatinine Today Z85.048 - Personal history of other malignant neoplasm of rectum, rectosigmoid junction, and anus CT abdomen pelvis w IV con Today Z85.048 - Personal history of other malignant neoplasm of rectum, rectosigmoid junction, and anus Carcinoembryonic Antigen Today Z85.048 - Personal history of other malignant neoplasm of rectum, rectosigmoid junction, and anus Coding Level of Care Code Est Pt Level 3 (79204) Diagnoses History of rectal cancer Z85.048
[2023-03-20 15:07] VITALS: BP 149/80; PULSE 60; BMI 26.4
== END 2023-03-20 15:17 | disposition home or self-care (01) ==
PROVIDERS: PCP Internal Medicine; Visit Provider Surgery
DX: Z85.048 Personal history of other malignant neoplasm of rectum, rectosigmoid junction, and anus (principal)
CPT/HCPCS: 99213

== ENCOUNTER 2023-03-20 14:58 | Outpatient (REF) | payer OTHER, SELFPAY ==
[2023-03-20 16:38] LABS: Blood Urea Nitrogen 17 mg/dL (9-16); Estimated Glomerular Filt Rate > 60
[2023-03-20 17:05] LABS: Carcinoembryonic Antigen < 1.73 ng/mL
== END 2023-03-20 14:59 | disposition home or self-care (01) ==
LOC: HO.LAB 14:58
PROVIDERS: PCP Internal Medicine; Visit Provider Surgery
DX: Z85.048 Personal history of other malignant neoplasm of rectum, rectosigmoid junction, and anus (principal)
CPT/HCPCS: 36415; 82378; 82565; 84520; 99212

== ENCOUNTER 2023-04-18 07:44 | Outpatient (AMB) | payer OTHER, SELFPAY ==
--- NOTE | 2023-04-18 07:57 | MHC.PC.OV ---
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 Accompanied by: Self / Same As Patient Allergies Penicillins [PENICILLINS] Allergy (Intermediate, Verified 04/18/23 12:35) UNKNOWN REACTION-CHILDHOOD ALLERGY Medication List - Last Reconciled 04/18/23 by Sebastian Taylor MD pantoprazole 20 mg PO QAM rosuvastatin 10 mg PO DAILY Tobacco use date assessed: 04/18/23 Dental Screening Dental Screen Date: 04/18/23 Did you have a dental visit in the last 12 months?: Yes Did you have a dental problem in the last 6 months where you did not have access to dental care?: No Was dental information given to patient?: Patient has dentist HPI flu symptoms HPI Details 52-year-old male presents to the office to discuss his medical condition. I am filling in for his primary care provider was not available today. In the last few months patient has had respiratory infections that have lasted up to 3 weeks each. He is a survivor of rectal cancer and wants to make sure nothing else is wrong. He is returned back to full baseline health. He is able to exercise, lift weights and do all activities of daily living. He has not had blood work done recently. Patient is also requesting routine referrals to Cardiology, Podiatry and Dermatology. He has been seeing them on a ongoing basis and just wants the referrals to continue seen them. This is an insurance requirement. FORMERLY [facility] Medical History History of rectal cancer Rectal adenocarcinoma Actinic keratitis ARON on CPAP Skin lesion Hyperlipidemia Chest pain PVC (premature ventricular contraction) GERD (gastroesophageal reflux disease) Surgical History History of colonoscopy (~2022) History of flexible sigmoidoscopy (03/04/22) Hx of umbilical hernia repair History of rectal polypectomy History of sigmoidoscopy Hx of colonoscopy History of hand surgery History of removal of cyst History of arthroscopy of right knee History of inguinal hernia repair Family History Father Prostate CA Mother Gastric cancer Cancer Brother Skin cancer Maternal Grandfather Throat cancer Lung cancer Paternal Uncle Throat cancer Lung cancer Paternal Aunt Gastric cancer Brother Melanoma Social History Household Members: Spouse Housing: House Alcohol intake: current Alcohol intake frequency: a few times a week Alcohol type: beer and wine Patient Tobacco Use Status: Former Tobacco user Quit Date: 2006 Tobacco use type: Cigarette Years Smoked: 15 e-Cigarette/Vaping Use: Never Used Second Hand Smoke Exposure: No service: Yes ([facility]) Current occupational status: employed Current occupational exposures/hazards: No Cognitive needs: No Hearing needs: No Vision needs: Yes Questionnaire PHQ-9 Over the last 2 weeks, how often have you been bothered by any of the following problems? 1. Little interest or pleasure in doing things: not at all 2. Feeling down, depressed, or hopeless: not at all 3. Trouble falling or staying asleep, or sleeping too much: not at all 4. Feeling tired or having little energy: not at all 5. Poor appetite or overeating: not at all 6. Feeling bad about yourself - or that you are a failure or have let yourself or your family down: not at all 7. Trouble concentrating on things, such as reading the newspaper or watching television: not at all 8. Moving or speaking so slowly that other people could have noticed. Or the opposite - being so fidgety or restless that you have been moving around a lot more than usual: not at all 9. Thoughts that you would be better off or of hurting yourself in some way: not at all Total score: 0 Depression Screening Interpretation: Negative Depression Screening Done: Yes 70713 - PHQ-9 Billing: Yes Source: Developed by Drs. Bud Wells, Rita Powers, José Miguel Jenkins and colleagues, with an educational yefri from [employer]. Thrive Questionnaire Date Thrive assessed: 04/18/23 I am a: Patient What is your living situation today?: I have a steady place to live Within the past 12 months, did the food you bought not last and you didn't have the money to get more?: Never true Within the past 12 months, did you worry whether your food would run out before you got money to buy more?: Never true Do you have trouble paying for medicines?: No Do you have trouble getting transportation to medical appointments?: No Do you have trouble paying your heating and electricity bill?: No Do you have trouble taking care of your child, family member or friend?: No Do you have trouble with day-to-day activities such as bathing, preparing meals, shopping, managing finances, etc.?: No Are you currently unemployed and looking for a job?: No Are you interested in more education?: No Please select the resources that you would like help with: None Currently or been in a relationship where the following occur: no concerns reported THRIVE Score: 0 AUDIT C Alcohol Use Questionnaire (AUDIT-C) 1. How often do you have a drink containing alcohol?: 2-3 times a week 2. How many drinks containing alcohol do you have on a typical day when you are drinking?: 1 or 2 3. How often do you have six or more drinks on one occasion?: Never Total Score: 3 Score Reviewed/Action Taken: Yes ANKUSH-7 AMB Questionnaire ANKUSH-7 Date ANKUSH - 7 assessed: 04/18/23 Feeling nervous, anxious, or on edge: 0 = Not at all Not being able to stop or control worryin = Not at all Worrying too much about different things: 0 = Not at all Trouble relaxin = Not at all Being so restless that it is hard to sit still: 0 = Not at all Becoming easily annoyed or irritable: 0 = Not at all Feeling afraid as if something awful might happen: 0 = Not at all Total ANKUSH-7 score (0-4 normal; 5-9 mild; 10-14 moderate; 15-21 severe): 0 Source: Developed by Drs. Bud Wells, Rita Powers, José Miguel Jenkins and colleagues, with an educational yefri from [employer]. ANKUSH-7 Assessment Billing ANKUSH-7 Assessment Tool: ANKUSH-7 Assessment 25939 Physical exam (Primary Care) Vital Signs: Last Vital Signs Pulse 77 04/18/23 08:15 BP 130/90 H 04/18/23 08:15 Pulse Ox 97 04/18/23 08:15 Oxygen Delivery Method Room Air 04/18/23 08:15 BMI result Body Mass Index 27.0 Tobacco/Smoking Status: Tobacco use Status Tobacco use date assessed 04/18/23 04/18/23 08:20 Patient Tobacco Use Status Former Tobacco user 04/18/23 07:58 Tobacco use type Cigarette 04/18/23 07:58 e-Cigarette/Vaping Use Never Used 04/18/23 07:58 PHQ-9: PHQ-9 Score PHQ-9: Total score 0 04/18/23 08:56 Depression Screening Interpretation: Negative Thrive Assessment: Date of Thrive Assessment Date Thrive assessed 04/18/23 04/18/23 08:20 Currently or been in a relationship where the following occur: no concerns reported Const General: cooperative and healthy appearing Nutritional Appearance: well nourished Orientation/consciousness: patient oriented x3 Limitations: no limitations HENMT Head: Yes normal to inspection Eyes General: appearance normal, both eyes and all related structures Neck Neck: Yes normal visual inspection Chest Chest palpation & inspection: normal palpation of entire chest wall Resp Effort & Inspection: normal respiratory effort Neuro General: patient oriented x3 Assessment and Plan Assessment & Plan (1) Foot pain: Code(s): M79.673 - Pain in unspecified foot Plan: Referral to the foot doctor made. (2) Rectal adenocarcinoma: Code(s): C20 - Malignant neoplasm of rectum Plan: Condition is stable. Patient has been having surveillance colonoscopies and currently has an upcoming sigmoidoscopy in the next few weeks. Blood work has been ordered. Will call patient with results. Patient was reassured. Orders: Orders Basic Metabolic Panel Today C20 - Malignant neoplasm of rectum Complete Blood Count no Diff Today C20 - Malignant neoplasm of rectum Lipid Panel Today C20 - Malignant neoplasm of rectum Thyroid Stimulating Hormone Today C20 - Malignant neoplasm of rectum UA and rflx microscopic Today C20 - Malignant neoplasm of rectum Liver Panel Today C20 - Malignant neoplasm of rectum Erythrocyte Sedimentation Rate Today C20 - Malignant neoplasm of rectum Referrals Cardiology Referral I49.3 - Ventricular premature depolarization Podiatry Referral M79.673 - Pain in unspecified foot Dermatology Referral L98.9 - Disorder of the skin and subcutaneous tissue, unspecified Coding Level of Care Code Est Pt Level 4 (18728) Diagnoses Foot pain M79.673 Rectal adenocarcinoma C20 Additional Codes ANKUSH-7 Assessment Billing - ANKUSH-7 Assessment Tool: ANKUSH-7 Assessment 67440 ([id number])
[2023-04-18 08:15] VITALS: BP 130/90; PULSE 77; O2SAT 97; BMI 27.0
== END 2023-04-18 08:49 | disposition home or self-care (01) ==
PROVIDERS: PCP Internal Medicine; Visit Provider Internal Medicine
DX: M79.673 Pain in unspecified foot (principal); C20 Malignant neoplasm of rectum
CPT/HCPCS: 99214

== ENCOUNTER 2023-04-21 08:57 | Day surgery (SDC) | payer OTHER, SELFPAY ==
[2023-04-19 15:29] VITALS: BMI 26.4
[2023-04-21 10:07] VITALS: BMI 26.3
[2023-04-21] MEDS: Lactated Ringers 1,000 ML 80 ML IVCONT (10:18)
[2023-04-21 10:27] VITALS: BP 135/90; PULSE 78; RESP 18; TEMP 36.6; O2SAT 99
--- NOTE | 2023-04-21 10:36 | MHC.SHP ---
Pre-Procedural Eval Section A - 24 Hr Update-Section A only Date of Service: 04/21/23 Section B - Complete if H&P > 30 days Chief Complaint: Personal history of other malignant neoplasm Details of Present Illness: Has history of malignant rectal polyp, removed endoscopically in 2021, here for surveillance with a flexible sigmoidoscopy Relevant Family History (Specify if Yes): No Relevant Social History: None Present Medications: see Short Stay Collaborative assessment Medical History: Significant History (ARON) Allergies: Allergies Allergy/AdvReac Type Severity Reaction Status Date / Time Penicillins [PENICILLINS] Allergy Intermediate UNKNOWN Verified 04/21/23 09:14 REACTION-CHILDHOOD ALLERGY Review of Systems Sugical H&P ROS: Negative: Constitution, Cardiovascular, Respiratory, Neurological, Psychiatric, Hem-Onc, Allergic/Immunologic, Gastrointestinal, Genitourinary, Musculoskeletal, Integumentary, Endocrine and Eyes/Ears/Nose/Throat Exam Surgical H&P Exam: Normal: HEENT, Normal: Heart, Normal: Lungs, Normal: Extremities, Normal: Abdomen, Normal: Skin and Normal: Neurological Plan Diagnosis/Plan: Unchanged I have reviewed the history and physical and performed a pertinent physical examination on my patient. No changes have occurred unless specified. Time Spent With Patient Time: Total time managing care of this patient today ____ minutes.
--- NOTE | 2023-04-21 10:47 | HO.ANESPROP2 ---
HPI - Anesthesia Eval Consult details Narrative: s/p resection of rectal carcinoma PMFSH Active Problems Active Problems: All Active Problems (Updated 03/08/23 @ 09:[address] PA-C) Myalgia (Acute) Fever (Acute) Acute sinusitis (Acute) Viral sinusitis (Acute) Abnormal stress ECG (Acute) Encounter for screening colonoscopy (Acute) Colon cancer (Acute) Rectal adenocarcinoma (Acute) Umbilical hernia (Acute) Physical exam (Acute) Foot pain (Acute) History of rectal cancer (Acute) History of rectal polypectomy (Acute) ARON on CPAP (Acute) Skin lesion (Acute) Hyperlipidemia (Acute) Chest pain (Acute) PVC (premature ventricular contraction) (Acute) GERD (gastroesophageal reflux disease) (Acute) Past Medical History Medical History History of rectal cancer Rectal adenocarcinoma Actinic keratitis ARON on CPAP Skin lesion Hyperlipidemia Chest pain PVC (premature ventricular contraction) GERD (gastroesophageal reflux disease) Family History Family History Father Prostate CA Mother Gastric cancer Cancer Brother Skin cancer Maternal Grandfather Throat cancer Lung cancer Paternal Uncle Throat cancer Lung cancer Paternal Aunt Gastric cancer Brother Melanoma Family history of problems with anesthesia: No Surgical History Surgical History History of colonoscopy (~2022) History of flexible sigmoidoscopy (03/04/22) Hx of umbilical hernia repair History of rectal polypectomy History of sigmoidoscopy Hx of colonoscopy History of hand surgery History of removal of cyst History of arthroscopy of right knee History of inguinal hernia repair History of Problems with Anesthesia: No Social History Social History Household Members: Spouse Housing: House Alcohol intake: current Alcohol intake frequency: a few times a week Alcohol type: beer and wine Patient Tobacco Use Status: Former Tobacco user Quit Date: 2006 Tobacco use type: Cigarette Years Smoked: 15 e-Cigarette/Vaping Use: Never Used Second Hand Smoke Exposure: No Are you DNR?: No Advance Directives: No Advance Directives Information Provided: Yes Nutrition Risks: No Nutritional Risk service: Yes ([employer]) Current occupational status: employed Current occupational exposures/hazards: No Cognitive needs: No Hearing needs: No Vision needs: Yes Meds Allergies Allergy/AdvReac Type Severity Reaction Status Date / Time Penicillins [PENICILLINS] Allergy Intermediate UNKNOWN Verified 04/21/23 09:14 REACTION-CHILDHOOD ALLERGY Active Medications: Current Medications Lactated Ringer's (Lr) 1,000 mls @ 80 mls/hr IVCONT .[id number] ROSALINA Last Admin: 04/21/23 10:18 Dose: 80 mls/hr Exam Height,Weight and Vital Signs: Height 6 ft Weight 87.997 kg Last Vital Signs Temp 97.9 F 04/21/23 10:27 Pulse 78 04/21/23 10:27 Resp 18 04/21/23 10:27 BP 135/90 H 04/21/23 10:27 Pulse Ox 99 04/21/23 10:27 O2 Del Method Room Air 04/21/23 10:27 Airway Mallampati Class: III TM Dist: >3cm Neck ROM: Full Loose/Missing/Broken Teeth: No Heart: rrr+[id number] Lungs: cta b/l Assessment and Plan Assessment Anesthesia Assessment: Anesthesia Plan Discussed, Smoking Cess. Discussed and Chart Reviewed Final Anesthetic Review Family History of Problems with Anesthesia: No History of Problems with Anesthesia: No NPO: Yes ASA Class: II Final Preanesthetic Review: No Changes in Pt Med Stat, Meds/Allgs Chart Reviewed, Consent Obtained/Reviewed and Anes Risks/Benef Reviewed Patient Risk: Intermediate Procedure Risk: Low Assessment/Block/Sedation in SS: Assess/Block/Sedation-SS Anesthetic Plan Anesthetic Plan: MAC: Disposition: Standard PACU
--- NOTE | 2023-04-21 11:15 | W.PM.OPN ---
Operative Note Operative Note Date of Service: 04/21/23 Narrative: Preop diagnosis: History of malignant rectal polyp Postop diagnosis: Normal flexible sigmoidoscopy findings Procedure: Flexible sigmoidoscopy Surgeon: Noe Hummel MD The patient is a 52-year-old male who had a malignant polyp at level 10 cm removed endoscopically in 2021. He is here for surveillance. He understands the technique of the procedure as well as the risks, benefits, and alternatives He was brought to the operating room. He was placed in left lateral decubitus position under monitored anesthesia care. Surgical time-out was done. A full digital rectal exam was done. There were no palpable anal canal lesions or induration The tip of the Olympus colonoscope was gently introduced through the anal orifice and advanced with insufflation all the way to about 25 cm. We then proceeded to withdraw the scope gently with careful examination of the rest of the distal sigmoid rectal mucosa being done the scope withdrawal. The inked area was noted at around 8 cm. I made multiple passes around this area and there were no lesions seen. There was no abnormal rectal mucosa. There was no evidence of any recurrent lesion I continued to withdraw the scope. The rest of the distal rectum and anal canal were unremarkable. The scope was general with completely with desufflation The patient tolerated procedure well. There were no immediate complications. I will continue to do close surveillance and plan on doing a colonoscopy this year.
[2023-04-21 11:17] VITALS: BP 117/75; PULSE 81; RESP 16; TEMP 37.3; O2SAT 98
[2023-04-21 11:32] VITALS: BP 118/79; PULSE 84; RESP 16; O2SAT 97
[2023-04-21 11:47] VITALS: BP 134/85; PULSE 78; RESP 16; TEMP 36.6; O2SAT 97
== END 2023-04-21 12:15 | disposition home or self-care (01) ==
PROVIDERS: PCP Internal Medicine; Visit Provider Surgery
PROC: 0DJD8ZZ Inspection of Lower Intestinal Tract, Via Natural or Artificial Opening Endoscopic (ICD-10-PCS; CPT 45330; principal; 2023-04-21 11:20)
DX: Z12.11 Encounter for screening for malignant neoplasm of colon (principal); Z85.048 Personal history of other malignant neoplasm of rectum, rectosigmoid junction, and anus; K21.9 Gastro-esophageal reflux disease without esophagitis; G47.33 Obstructive sleep apnea (adult) (pediatric); E78.5 Hyperlipidemia, unspecified; I49.3 Ventricular premature depolarization; L57.0 Actinic keratosis; Z99.89 Dependence on other enabling machines and devices; Z88.0 Allergy status to penicillin; Z98.890 Other specified postprocedural states; Z87.891 Personal history of nicotine dependence
CPT/HCPCS: 45330; J2704

== ENCOUNTER → 2023-04-21 08:57 | Outpatient (BNV) | payer OTHER, SELFPAY | PROVIDERS: PCP Internal Medicine; Visit Provider Surgery | DX: Z85.048 Personal history of other malignant neoplasm of rectum, rectosigmoid junction, and anus (principal) | CPT/HCPCS: 45330 ==

== ENCOUNTER 2023-05-04 14:57 | Outpatient (AMB) | payer OTHER, SELFPAY ==
--- NOTE | 2023-05-04 14:59 | A.OFFVIS_ITS ---
Intake Vital Signs 05/04/23 15:04 BP 138/76 Blood Pressure Location Rt brachial Position Sitting Pulse 84 Intake Visit Reasons: S/P flex sig Intake Note: This patient presents for a follow-up assessment status post Flexible sigmoidoscopy. Pt c/o; reports no complaints. 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 He had undergone tubal sigmoidoscopy 2 weeks ago. I did not find any lesion or any evidence of any recurrent polyp. He feels well overall. He denies any significant GI complaints He is also scheduled to have a surveillance CT scan tomorrow. [facility] Medical History History of rectal cancer Rectal adenocarcinoma Actinic keratitis ARON on CPAP Skin lesion Hyperlipidemia Chest pain PVC (premature ventricular contraction) GERD (gastroesophageal reflux disease) Surgical History History of flexible sigmoidoscopy (~04/21/23) History of colonoscopy (~2022) History of flexible sigmoidoscopy (03/04/22) Hx of umbilical hernia repair History of rectal polypectomy History of sigmoidoscopy Hx of colonoscopy History of hand surgery History of removal of cyst History of arthroscopy of right knee History of inguinal hernia repair Family History Father Prostate CA Mother Gastric cancer Cancer Brother Skin cancer Maternal Grandfather Throat cancer Lung cancer Paternal Uncle Throat cancer Lung cancer Paternal Aunt Gastric cancer Brother Melanoma Social History Household Members: Spouse Housing: House Alcohol intake: current Alcohol intake frequency: a few times a week Alcohol type: beer and wine Patient Tobacco Use Status: Former Tobacco user Quit Date: 2006 Tobacco use type: Cigarette Years Smoked: 15 e-Cigarette/Vaping Use: Never Used Second Hand Smoke Exposure: No service: Yes ([facility]) Current occupational status: employed Current occupational exposures/hazards: No Cognitive needs: No Hearing needs: No Vision needs: Yes Review of Systems Const Denies chills and Denies fever(s) Card Denies chest pain, Denies dyspnea and Denies dyspnea on exertion Resp Denies cough, Denies dyspnea and Denies dyspnea on exertion GI Denies hematochezia and Denies change in bowel habits Denies hematuria and Denies difficulty urinating Musc Denies back pain and Denies limited range of motion Neuro Denies focal weakness and Denies convulsions Psych Denies depression and Denies mood swings Physical Exam Vital Signs: Last Vital Signs Pulse 84 05/04/23 15:04 BP 138/76 05/04/23 15:04 Const General: comfortable and no acute distress Orientation/consciousness: patient oriented x3 Neck Neck: Yes no lymphadenopathy Resp Auscultation: clear to auscultation bilaterally Cardio Rhythm: regular rhythm GI Palpation (GI): Soft to palpation, nontender and no guarding Neuro General: patient oriented x3 Assessment & Plan Assessment & Plan (1) History of rectal polypectomy: Code(s): Z98.890 - Other specified postprocedural states; Z87.19 - Personal history of other diseases of the digestive system Plan: He has a history of a malignant rectal polyp in 2021. His flexible sigmoidoscopy done earlier this month was unremarkable without any evidence of any recurrence I had recommended a follow-up full colonoscopy sometime this year. He wants this scheduled in October to work around his work schedule. I reviewed the technique of this procedure with him. He understands the risks including but not limited to bleeding and perforation. He has given consent. Coding Level of Care Code Est Pt Level 2 (56915) Diagnoses History of rectal polypectomy Z98.890; Z87.19
[2023-05-04 15:04] VITALS: BP 138/76; PULSE 84
== END 2023-05-04 15:23 | disposition home or self-care (01) ==
PROVIDERS: PCP Internal Medicine; Visit Provider Surgery
DX: Z98.890 Other specified postprocedural states (principal); Z87.19 Personal history of other diseases of the digestive system
CPT/HCPCS: 99212

== ENCOUNTER → 2023-05-04 14:57 | Outpatient (BNVA) | payer OTHER, SELFPAY | PROVIDERS: PCP Internal Medicine; Visit Provider Surgery | DX: Z98.890 Other specified postprocedural states (principal); Z87.19 Personal history of other diseases of the digestive system | CPT/HCPCS: 99212 ==

== ENCOUNTER 2023-05-05 06:55 | Outpatient (REF) | payer OTHER, SELFPAY ==
--- NOTE | ~2023-05-05 | CT_ITS ---
EXAMINATION: CT ABDOMEN AND PELVIS WITH CONTRAST CLINICAL INFORMATION: Rectal cancer COMPARISON: 07/29/2021 TECHNIQUE: Multidetector volumetric images were obtained from the superior aspect of the liver through the pubic symphysis following administration 85 mL of Omnipaque 350 intravenous contrast. Sagittal and coronal reformatted images were obtained on the technologist's workstation. Oral contrast: No This CT examination was performed using dose optimization techniques as appropriate, variously including the following: *Automated exposure control *Adjustment of mA and/or kV according to patient size (this includes techniques or standardized protocols for targeted exams where dose is matched to indication/reason for exam; i.e. extremities or head) *Use of iterative reconstruction technique DLP: 452 mGy-cm FINDINGS: ANTIQUE FURNITURE RESTORER: Fecal retention. Clear lung bases. LUNG BASES: Dependent atelectasis. LIVER, GALLBLADDER, AND BILIARY TREE: Diffuse hypodensity to liver parenchyma. Tiny inferior right hepatic hypodensity, too small to characterize, statistically cyst. No biliary ductal dilatation is present. The gallbladder is unremarkable with no evidence of radiopaque gallstones, gallbladder wall thickening, or obvious pericholecystic inflammatory changes. PANCREAS: Unremarkable. SPLEEN: Unremarkable. ADRENAL GLANDS: Unremarkable. KIDNEYS AND URETERS: The kidneys are normal in size, shape, and attenuation. No hydronephrosis, hydroureter, or calculi seen. No perinephric stranding. BLADDER: Decompressed. Mild fatty infiltration anterior bladder. GASTROINTESTINAL TRACT: Decompressed stomach. Nonobstructive bowel pattern. Unremarkable terminal ileum and appendix. Mild fecal retention. Diverticulosis without diverticulitis. Mild left-sided bulbous soft tissue outpouching of the rectum, 3:81. No surrounding perirectal stranding. ABDOMINAL WALL: No significant hernia is appreciated. LYMPH NODES: No pathologic adenopathy. VASCULAR: Mild atherosclerotic calcifications nonaneurysmal aorta with patency of the mesenteric vessels. Unremarkable inferior vena cava and iliac veins. Patent portal system. PELVIC VISCERA: Unremarkable. OSSEOUS STRUCTURES: No suspicious osseous lesions. CT/CT abdomen pelvis w IV con IMPRESSION: Question mild hepatic steatosis. Mild fecal retention. Diverticulosis without diverticulitis. Mild left-sided rectal soft tissue outpouching, patient with history of rectal cancer, correlate with known site of pathology. No CT evidence of acute intra-abdominal/pelvic process or metastatic disease. Fleischner guidelines were followed.
[2023-05-05 07:39] LABS: Hematocrit 46.4 % (42.0-52.0); Hemoglobin 16.1 g/dl (14.0-18.0); Mean Corpuscular HGB Conc 34.7 g/dl (31.0-36.0); Mean Corpuscular Hemoglobin 30.7 pg (27.0-33.0); Mean Corpuscular Volume 88.5 fL (80.0-98.0); Mean Platelet Volume 9.9 fL (9.4-12.4); Platelet Count 215 X10*3/uL (160-400); Red Blood Count 5.24 X10*6/uL (4.60-5.80); White Blood Count 5.4 X10*3/uL (4.8-10.8)
[2023-05-05 07:59] LABS: Alanine Aminotransferase 43 U/L (0-40); Albumin Level 4.4 g/dL (3.5-5.0); Alkaline Phosphatase 70 U/L (39-117); Anion Gap 10 (12-20); Aspartate Amino Transferase 24 U/L (5-37); Bilirubin Direct 0.2 mg/dL (0.0-0.5); Bilirubin Total 0.7 mg/dL (0.0-1.0); Blood Urea Nitrogen 18 mg/dL (9-16); Calcium 9.3 mg/dL (8.4-10.2); Carbon Dioxide 28 mmol/L (22-29); Chloride 106 mmol/L (96-108); Cholesterol 164 mg/dL (<200); Estimated Glomerular Filt Rate > 60; Glucose Random 106 mg/dL (60-115); HDL Cholesterol 40 mg/dL (>40); LDL Cholesterol Calculated 97 mg/dL (<100); Potassium 4.1 mmol/L (3.3-5.1); Sodium 140 mmol/L (135-145); Total Protein 7.3 g/dL (6.5-8.0); Triglycerides 137 mg/dL (<150)
[2023-05-05 08:00] LABS: Appearance Urine Clear; Color Urine Yellow; Glucose Urine UA Negative (Negative); Leukocyte Esterase Urine Negative (Negative); Nitrite Urine Negative (Negative); Specific Gravity - Urine 1.015 (1.005-1.025); Urine Blood Negative (Negative); Urine Ketones Negative (Negative); Urine Protein Negative (Neg-Trace)
[2023-05-05 08:16] LABS: Thyroid Stimulating Hormone 1.42 uIU/mL (0.32-4.0)
[2023-05-05] MEDS: iohexoL 350 MG/ML 100 ML INFUS..BTL 85 ML IV (08:48)
[2023-05-05 09:09] LABS: Erythrocyte Sedimentation Rate 2 MM/HR (0-15)
== END 2023-05-05 06:56 | disposition home or self-care (01) ==
LOC: HO.CT 06:55
PROVIDERS: Absent Provider Internal Medicine; PCP Internal Medicine; Visit Provider Surgery
DX: C20 Malignant neoplasm of rectum (principal)
CPT/HCPCS: 36415; 74177; 80048; 80061; 80076; 81003; 84443; 85027; 85652; Q9967

== ENCOUNTER 2023-07-17 09:19 | Outpatient (AMB) | payer OTHER, SELFPAY ==
--- NOTE | 2023-07-17 09:26 | A.OFFVIS_ITS ---
Vital Signs 07/17/23 09:33 Weight 200 lb BP 132/79 Blood Pressure Location Rt brachial Position Sitting Pulse 76 Intake Visit Reasons: Hx rectal CA,3 month follow-up Intake Note: This patient presents for a three month follow-up for rectal Carcinoma. Patient c/o; reports no complaints at this time. Electrotherapist Required: No Accompanied by: Spouse Allergies Penicillins [PENICILLINS] Allergy (Intermediate, Verified 07/17/23 09:33) UNKNOWN REACTION-CHILDHOOD ALLERGY Medication List - Last Reconciled 07/17/23 by Noe Hummel MD pantoprazole 20 mg PO QAM rosuvastatin 10 mg PO DAILY sodium,potassium,mag sulfates 17.5-3.13-1.6 gram (Suprep Bowel Prep Kit) DILUTE; drink full amount early evening before AND next morning at least 2 hr before procedure; follow w 960 mL water PO HPI HPI Hx rectal CA,3 month follow-up: Details: 53-year-old male here for follow-up for his history of a malignant rectal polyp. He had a flexible sigmoidoscopy last 04/25/2022 which was unremarkable He denies GI complaints. He did have a CT scan earlier this year showing question of a thickening in the rectum so I had planned on doing his anoscopy today. He feels well overall. [facility] Medical History History of rectal cancer Rectal adenocarcinoma Actinic keratitis ARON on CPAP Skin lesion Hyperlipidemia Chest pain PVC (premature ventricular contraction) GERD (gastroesophageal reflux disease) Surgical History History of flexible sigmoidoscopy (~04/21/23) History of colonoscopy (~2022) History of flexible sigmoidoscopy (03/04/22) Hx of umbilical hernia repair History of rectal polypectomy History of sigmoidoscopy Hx of colonoscopy History of hand surgery History of removal of cyst History of arthroscopy of right knee History of inguinal hernia repair Family History Father Prostate CA Mother Gastric cancer Cancer Brother Skin cancer Maternal Grandfather Throat cancer Lung cancer Paternal Uncle Throat cancer Lung cancer Paternal Aunt Gastric cancer Brother Melanoma Social History Household Members: Spouse Housing: House Alcohol intake: current Alcohol intake frequency: a few times a week Alcohol type: beer and wine Patient Tobacco Use Status: Former Tobacco user Tobacco use type: Cigarette Years Smoked: 15 e-Cigarette/Vaping Use: Never Used Second Hand Smoke Exposure: No service: Yes ([facility]) Current occupational status: employed Current occupational exposures/hazards: No Cognitive needs: No Hearing needs: No Vision needs: Yes Review of Systems Const Denies chills and Denies fever(s) Card Denies chest pain, Denies dyspnea and Denies dyspnea on exertion Resp Denies cough, Denies dyspnea and Denies dyspnea on exertion GI Denies hematochezia and Denies change in bowel habits Denies hematuria and Denies difficulty urinating Musc Denies back pain and Denies limited range of motion Neuro Denies focal weakness and Denies convulsions Psych Denies depression and Denies mood swings Physical Exam Vital Signs: Last Vital Signs Pulse 76 07/17/23 09:33 BP 132/79 07/17/23 09:33 Const General: comfortable and no acute distress Orientation/consciousness: patient oriented x3 Neck Neck: Yes no lymphadenopathy Resp Auscultation: clear to auscultation bilaterally Cardio Rhythm: regular rhythm GI Palpation (GI): Soft to palpation, nontender and no guarding Neuro General: patient oriented x3 Office Procedures Anoscopy He was in left lateral decubitus position. The anoscopy was inserted gently . Full anoscopic exam was done of the anus as well as the distal rectum. There was no lesions seen breasts no abnormality in the mucosa of the rectum in the anus. There was no induration on digital exam. There was no fissure or any ulceration. There was no bleeding. [id number] Assessment & Plan Assessment & Plan (1) History of rectal cancer: Code(s): Z85.048 - Personal history of other malignant neoplasm of rectum, rectosigmoid junction, and anus Category: Medical Plan: He had a malignant rectal polyp removed endoscopically in 2021. He has had regular sigmoidoscopy and colonoscopies which do not reveal any signs of recurrence or lesions Current anoscopy does not show any abnormality in the distal rectum or the anus I have scheduled him for a full colonoscopy this October,. I had reviewed the technique of this procedure as well as the risks benefits and alternatives He is very familiar with this procedure and has agreed to proceed. Coding Level of Care Code Est Pt Level 3 (32084) Diagnoses History of rectal cancer Z85.048 CPT Codes Details - CPT: [id number]-[id number] ([id number])
[2023-07-17 09:33] VITALS: BP 132/79; PULSE 76
== END 2023-07-17 09:54 | disposition home or self-care (01) ==
PROVIDERS: PCP Internal Medicine; Visit Provider Surgery
DX: Z85.048 Personal history of other malignant neoplasm of rectum, rectosigmoid junction, and anus (principal)
CPT/HCPCS: 46600; 99213

== ENCOUNTER → 2023-07-17 09:19 | Outpatient (BNVA) | payer OTHER, SELFPAY | PROVIDERS: PCP Internal Medicine; Visit Provider Surgery | DX: Z85.048 Personal history of other malignant neoplasm of rectum, rectosigmoid junction, and anus (principal) | CPT/HCPCS: 46600; 99212 ==

== ENCOUNTER 2023-07-20 10:18 | Outpatient (AMB) | payer OTHER, SELFPAY ==
[2023-07-20 10:27] VITALS: BP 120/62; PULSE 71; BMI 26.9
--- NOTE | 2023-07-20 10:27 | A.OFFVIS_ITS ---
Vital Signs 07/20/23 10:27 Height 6 ft Weight 198 lb 6.656 oz BMI 26.9 BP 120/62 Blood Pressure Location Lt brachial Position Sitting Pulse 71 Pulse Source Monitor Intake Visit Reasons: 2 year fu Intake Note: pt is here for 2 year f/u with ekg pt is concern of high blood pressure Allergies Penicillins [PENICILLINS] Allergy (Intermediate, Verified 07/17/23 09:33) UNKNOWN REACTION-CHILDHOOD ALLERGY Medication List - Last Reconciled 07/20/23 by Endy Castaneda MD pantoprazole 20 mg PO QAM rosuvastatin 10 mg PO DAILY sodium,potassium,mag sulfates 17.5-3.13-1.6 gram (Suprep Bowel Prep Kit) DILUTE; drink full amount early evening before AND next morning at least 2 hr before p rocedure; follow w 960 mL water PO HPI Comments Details: Ulises comes for 2 year follow-up. He has been doing overall very well. Pedro erating current statin therapy with last LDL was 93 mg/dL. However he is noted that more recently during office visit his blood pressure has been elevated. He does not monitor his blood pressure at home. Has the ability to do that. He said he has a very high stress job and occasionally with stress he has headaches. He denies any palpitation at this point time. Denies any exertional symptoms of chest pain or shortness of breath. No orthopnea, PND, leg edema. No lightheadedness, syncope. [facility] Medical History (Updated 07/20/23 @ 12:05 by Endy Castaneda MD) Chest pain History of rectal cancer Rectal adenocarcinoma Actinic keratitis ARON on CPAP Skin lesion Hyperlipidemia PVC (premature ventricular contraction) GERD (gastroesophageal reflux disease) Surgical History History of flexible sigmoidoscopy (~04/21/23) History of colonoscopy (~2022) History of flexible sigmoidoscopy (03/04/22) Hx of umbilical hernia repair History of rectal polypectomy History of sigmoidoscopy Hx of colonoscopy History of hand surgery History of removal of cyst History of arthroscopy of right knee History of inguinal hernia repair Family History Father Prostate CA Mother Gastric cancer Cancer Brother Skin cancer Maternal Grandfather Throat cancer Lung cancer Paternal Uncle Throat cancer Lung cancer Paternal Aunt Gastric cancer Brother Melanoma Social History Household Members: Spouse Housing: House Alcohol intake: current Alcohol intake frequency: a few times a week Alcohol type: beer and wine Patient Tobacco Use Status: Former Tobacco user Tobacco use type: Cigarette Years Smoked: 15 e-Cigarette/Vaping Use: Never Used Second Hand Smoke Exposure: No service: Yes ([facility]) Current occupational status: employed Current occupational exposures/hazards: No Cognitive needs: No Hearing needs: No Vision needs: Yes Review of Systems Const Denies weakness ENT Denies dizziness Card Denies chest pain, Denies chest pain with activity, Denies syncope, Denies rapid heart rate, Denies pedal edema, Denies edema, Denies leg edema, Denies lightheadedness, Denies palpitations, Denies dyspnea, Denies dyspnea on exertion and Denies orthopnea Resp Denies cough, Denies dyspnea and Denies dyspnea on exertion GI Denies hematochezia and Denies change in stool character Musc Denies abnormal gait, Denies muscle cramps, Denies muscle weakness, Denies numbness, Denies radiating pain into limb and Denies tingling Neuro Denies abnormal gait, Denies dizziness, Denies syncope, Denies numbness, Denies tingling and Denies weakness Endo Denies palpitations Physical Exam Vital Signs: Last Vital Signs Pulse 71 07/20/23 10:27 BP 120/62 07/20/23 10:27 BMI result Body Mass Index 26.9 Const General: cooperative, comfortable, no acute distress, alert and well groomed Nutritional Appearance: average body habitus Orientation/consciousness: patient oriented x3 Limitations: no limitations Neck Neck: Yes trachea midline, Yes supple and Yes no JVD Resp Effort & Inspection: normal respiratory effort Auscultation: clear to auscultation bilaterally Cardio Jugular venous distension: no JVD Palpation: normal PMI Rate: regular rate Rhythm: regular rhythm Heart sounds: S1 normal heart sound present and S2 normal heart sound present GI Auscultation: normal bowel sounds Neuro General: patient oriented x3 and no focal motor deficits Extrem General: Yes no clubbing, cyanosis or edema Office Procedures EKG Details: EKG shows normal sinus rhythm with normal EKG [id number], Complete Assessment & Plan Assessment & Plan (1) PVC (premature ventricular contraction): Code(s): I49.3 - Ventricular premature depolarization Category: Medical Plan: Prior history of symptomatic PVCs without any obvious clinical recurrence at this point time. His symptoms are very well optimized at this point time. In the past he would normal structure of the heart. No repeat workup is indicated at this point time. Advised to continue to participate in stress mitigation strategies. Advised to call me with any worsening symptoms that may require alternative pharmacotherapy. (2) Hyperlipidemia: Code(s): E78.5 - Hyperlipidemia, unspecified Category: Medical Plan: Hyperlipidemia which is present and better with statin therapy. Although I suggested him to undergo coronary calcium score to assess for presence of back ry atherosclerosis. Further risk stratification treatment based on the finding of coronary calcium score. This will be scheduled in near future. He is agreeable to pursue the same. (3) HTN (hypertension): Code(s): I10 - Essential (primary) hypertension Category: Medical Plan: Noted elevated blood pressure during office visits. I have advised him to monitor blood pressure at home and various situation. Goals of therapy were discussed. Blood pressure today appears to be normal. I would not suggest any pharmacotherapy at this point time unless he has persistently elevated blood pressure readings at home. Goal blood pressure closer to 120/80. Low-salt diet was discussed. Stress mitigation strategies were discussed. Will follow up in the clinic in 2 years time, sooner p.r.n.. Thank you for allowing me to partake in his care Coding Level of Care Code Est Pt Level 4 (13915) Diagnoses PVC (premature ventricular contraction) I49.3 Hyperlipidemia E78.5 HTN (hypertension) I10 CPT Codes EKG - CPT: [id number], Complete ([id number])
== END 2023-07-20 10:59 | disposition home or self-care (01) ==
PROVIDERS: PCP Internal Medicine; Visit Provider Internal Medicine Cardiovascular Disease
DX: I49.3 Ventricular premature depolarization (principal); E78.5 Hyperlipidemia, unspecified; I10 Essential (primary) hypertension
CPT/HCPCS: 93010; 99214

== ENCOUNTER → 2023-07-20 10:18 | Outpatient (BNVA) | payer OTHER, SELFPAY | PROVIDERS: PCP Internal Medicine; Visit Provider Internal Medicine Cardiovascular Disease | DX: I49.3 Ventricular premature depolarization (principal); I10 Essential (primary) hypertension; E78.5 Hyperlipidemia, unspecified | CPT/HCPCS: 93005; 99212 ==

== ENCOUNTER 2023-10-13 06:11 | Day surgery (SDC) | payer OTHER, SELFPAY ==
[2023-10-11 11:34] VITALS: BMI 27.0
--- NOTE | 2023-10-12 10:47 | P.CONAN_ITS ---
Documented by User: Veronique Rivas NP 10/12/23 10:48 HPI - Anesthesia Eval Consult details Narrative: 53yo M for Colonoscopy with possible Polypectomy PMFSH Active Problems Active Problems: All Active Problems HTN (hypertension) (Acute) Myalgia (Acute) Fever (Acute) Acute sinusitis (Acute) Viral sinusitis (Acute) Abnormal stress ECG (Acute) Encounter for screening colonoscopy (Acute) Colon cancer (Acute) Rectal adenocarcinoma (Acute) Umbilical hernia (Acute) Physical exam (Acute) Foot pain (Acute) History of rectal cancer (Acute) History of rectal polypectomy (Acute) ARON on CPAP (Acute) Skin lesion (Acute) Hyperlipidemia (Acute) PVC (premature ventricular contraction) (Acute) GERD (gastroesophageal reflux disease) (Acute) Past Medical History Medical History (Updated 07/20/23 @ 12:05 by Endy Castaneda MD) Chest pain History of rectal cancer Rectal adenocarcinoma Actinic keratitis ARON on CPAP Skin lesion Hyperlipidemia PVC (premature ventricular contraction) GERD (gastroesophageal reflux disease) Family History Family History Father Prostate CA Mother Gastric cancer Cancer Brother Skin cancer Maternal Grandfather Throat cancer Lung cancer Paternal Uncle Throat cancer Lung cancer Paternal Aunt Gastric cancer Brother Melanoma Family history of problems with anesthesia: No Surgical History Surgical History History of flexible sigmoidoscopy (~04/21/23) History of colonoscopy (~2022) History of flexible sigmoidoscopy (03/04/22) Hx of umbilical hernia repair History of rectal polypectomy History of sigmoidoscopy Hx of colonoscopy History of hand surgery History of removal of cyst History of arthroscopy of right knee History of inguinal hernia repair History of Problems with Anesthesia: No Social History Social History Household Members: Spouse Housing: House Alcohol intake: current Alcohol intake frequency: a few times a week Alcohol type: beer and wine Patient Tobacco Use Status: Former Tobacco user Tobacco use type: Cigarette Years Smoked: 15 e-Cigarette/Vaping Use: Never Used Second Hand Smoke Exposure: No Use of substances other than those prescribed or required for medical reasons: No Are you DNR?: No Advance Directives: No Advance Directives Information Provided: Yes Advance Directives on File: No Recently lost weight without trying: No Nutrition Risks: No Nutritional Risk Poor oral hygiene: No service: Yes ([facility]) Current occupational status: employed Current occupational exposures/hazards: No Cognitive needs: No Hearing needs: No Vision needs: Yes Meds Allergies Allergy/AdvReac Type Severity Reaction Status Date / Time Penicillins [PENICILLINS] Allergy Intermediate UNKNOWN Verified 07/17/23 09:33 REACTION-CHILDHOOD ALLERGY Exam Height,Weight and Vital Signs: Height 6 ft Weight 90.265 kg Pertinent Lab Results Pertinent Lab Results: Laboratory Tests 05/05/23 07:10 WBC 5.4 Hgb 16.1 Hct 46.4 Plt Count 215 Sodium 140 Potassium 4.1 Chloride 106 Carbon Dioxide 28 BUN 18 H Creatinine 1.19 Narrative Narrative: EKG 07/2023 normal sinus rhythm with normal EKG Assessment and Plan Assessment Anesthesia Assessment: Chart Reviewed Final Anesthetic Review Family History of Problems with Anesthesia: No History of Problems with Anesthesia: No Documented by User: Hermilo Ladd MD 10/13/23 07:03 [facility] Past Medical History Medical History (Updated 07/20/23 @ 12:05 by Endy Castaneda MD) Chest pain History of rectal cancer Rectal adenocarcinoma Actinic keratitis ARON on CPAP Skin lesion Hyperlipidemia PVC (premature ventricular contraction) GERD (gastroesophageal reflux disease) Family History Family History Father Prostate CA Mother Gastric cancer Cancer Brother Skin cancer Maternal Grandfather Throat cancer Lung cancer Paternal Uncle Throat cancer Lung cancer Paternal Aunt Gastric cancer Brother Melanoma Surgical History Surgical History History of flexible sigmoidoscopy (~04/21/23) History of colonoscopy (~2022) History of flexible sigmoidoscopy (03/04/22) Hx of umbilical hernia repair History of rectal polypectomy History of sigmoidoscopy Hx of colonoscopy History of hand surgery History of removal of cyst History of arthroscopy of right knee History of inguinal hernia repair Social History Social History Household Members: Spouse Housing: House Alcohol intake: current Alcohol intake frequency: a few times a week Alcohol type: beer and wine Patient Tobacco Use Status: Former Tobacco user Tobacco use type: Cigarette Years Smoked: 15 e-Cigarette/Vaping Use: Never Used Second Hand Smoke Exposure: No Use of substances other than those prescribed or required for medical reasons: No Are you DNR?: No Advance Directives: No Advance Directives Information Provided: Yes Advance Directives on File: No Recently lost weight without trying: No Nutrition Risks: No Nutritional Risk Poor oral hygiene: No service: Yes ([facility]) Current occupational status: employed Current occupational exposures/hazards: No Cognitive needs: No Hearing needs: No Vision needs: Yes Meds Allergies Allergy/AdvReac Type Severity Reaction Status Date / Time Penicillins [PENICILLINS] Allergy Intermediate UNKNOWN Verified 07/17/23 09:33 REACTION-CHILDHOOD ALLERGY Exam Airway Mallampati Class: II TM Dist: >3cm Neck ROM: Full Assessment and Plan Assessment Anesthesia Assessment: Anesthesia Plan Discussed Final Anesthetic Review NPO: Yes ASA Class: III Final Preanesthetic Review: No Changes in Pt Med Stat, Meds/Allgs Chart Reviewed, Consent Obtained/Reviewed and Anes Risks/Benef Reviewed Patient Risk: Intermediate Procedure Risk: Low Anesthetic Plan Anesthetic Plan: TIVA Disposition: Standard PACU
[2023-10-13 06:43] VITALS: BMI 26.9
[2023-10-13 06:48] VITALS: BP 128/85; PULSE 77; RESP 16; TEMP 36.8; O2SAT 98
[2023-10-13] MEDS: Lactated Ringers 1,000 ML 100 ML IVCONT (07:02)
--- NOTE | 2023-10-13 07:26 | MHC.SHP ---
Pre-Procedural Eval Section A - 24 Hr Update-Section A only Date of Service: 10/13/23 Section B - Complete if H&P > 30 days Chief Complaint: Personal history of other diseases of the digestiv Details of Present Illness: hx of malignant rectral polyp Relevant Social History: None Present Medications: see Short Stay Collaborative assessment Medical History: Significant History (hx of malignant rectal polyp, myalgia, GERD) Allergies: Allergies Allergy/AdvReac Type Severity Reaction Status Date / Time Penicillins [PENICILLINS] Allergy Intermediate UNKNOWN Verified 07/17/23 09:33 REACTION-CHILDHOOD ALLERGY Review of Systems Sugical H&P ROS: Negative: Constitution, Cardiovascular, Respiratory, Gastrointestinal and Genitourinary Exam Surgical H&P Exam: Normal: Heart, Normal: Lungs and Normal: Abdomen Plan Diagnosis/Plan: Unchanged I have reviewed the history and physical and performed a pertinent physical examination on my patient. No changes have occurred unless specified. Time Spent With Patient Time: Total time managing care of this patient today ____ minutes.
--- NOTE | 2023-10-13 08:02 | W.PM.OPN ---
Operative Note Operative Note Date of Service: 10/13/23 Narrative: Preop diagnosis: History of malignant rectal polyp Postop diagnosis: 1. Polyp, about 8 mm, outside the cecum, removed with hot snare 2. Small polyp, about 2-3 mm, in the proximal transverse colon, removed with cold forceps Procedure: Colonoscopy, polypectomy using hot snare x1 and cold forceps x1 Surgeon: Noe Hummel MD The patient is a 53-year-old male with history of malignant rectal polyp removed endoscopically. He is here for surveillance colonoscopy. He understood the technique of the procedure as well as the risks, benefits, and alternatives. . The patient was brought to the operating room and placed in left lateral decubitus position under monitored anesthesia care. A surgical time-out was done. A full digital rectal exam was done and this did not reveal any significant anal lesions. The tip of the Olympus colonoscope was gently introduced through the anal orifice advanced with insufflation all the way to the cecum. The cecum was intubated. The cecum was identified by visualization of the ileocecal valve as well as the appendiceal orifice. The cecal mucosa was unremarkable. The scope was gradually withdrawn with careful examination of the entire colonic mucosa being done with scope withdrawal. There was note of a polyp just outside the cecum, about 8 mm in size. This was removed using hot snare. There was note of good hemostasis. The patient had adequate bowel prep so it was unlikely that any lesion may have been missed. There was another polyp in the proximal transverse colon, about 2-3 mm removed with multiple cold forceps. There were no other lesions in the rest of the colon. The rectum was reached and there were no lesions seen. Site of the previous polypectomy for the malignant rectal polyp which had been with ink was examined multiple times with several passes. This was unremarkable. The anal canal was unremarkable. The scope was then withdrawn completely with desufflation The patient tolerated the procedure well. There were no immediate complications. In view of history, I would recommend another colonoscopy in 1 year and probably repeat his flexible sigmoidoscopy with a 6 months.
[2023-10-13 08:09] VITALS: BP 118/80; PULSE 72; RESP 15; TEMP 36.3; O2SAT 97
[2023-10-13 08:24] VITALS: BP 126/81; PULSE 69; RESP 6; TEMP 36.3; O2SAT 97
== END 2023-10-13 08:45 | disposition home or self-care (01) ==
PROVIDERS: PCP Internal Medicine; Visit Provider Surgery
PROC: 0DBE8ZZ Excision of Large Intestine, Via Natural or Artificial Opening Endoscopic (ICD-10-PCS; CPT 45385; principal; 2023-10-13 07:30)
DX: Z12.11 Encounter for screening for malignant neoplasm of colon (principal); Z85.048 Personal history of other malignant neoplasm of rectum, rectosigmoid junction, and anus; D12.0 Benign neoplasm of cecum; D12.3 Benign neoplasm of transverse colon; K21.9 Gastro-esophageal reflux disease without esophagitis; E78.5 Hyperlipidemia, unspecified; I49.3 Ventricular premature depolarization; H16.139 Photokeratitis, unspecified eye; G47.33 Obstructive sleep apnea (adult) (pediatric); Z79.899 Other long term (current) drug therapy; Z88.0 Allergy status to penicillin; Z98.890 Other specified postprocedural states; Z87.891 Personal history of nicotine dependence
CPT/HCPCS: 45385; 45380; 88305; J2704

== ENCOUNTER → 2023-10-13 06:11 | Outpatient (BNV) | payer OTHER, SELFPAY | PROVIDERS: PCP Internal Medicine; Visit Provider Surgery | DX: K63.5 Polyp of colon (principal); Z85.040 Personal history of malignant carcinoid tumor of rectum | CPT/HCPCS: 45380; 45385 ==

== ENCOUNTER 2023-10-26 08:55 | Outpatient (AMB) | payer OTHER, SELFPAY ==
--- NOTE | 2023-10-26 08:57 | A.OFFVIS_ITS ---
Vital Signs 10/26/23 09:02 Height 6 ft Weight 200 lb BMI 27.1 BP 120/69 Blood Pressure Location Rt brachial Position Sitting Pulse 75 Intake Visit Reasons: S/P colonoscopy Intake Note: This patient presents for follow-up assessment status post colonoscopy. Pt c/o; reports no complaints. 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 He is here for follow-up after 10/13/2023.I removed 2 small polyps. He tolerated the procedure well. He denies complaints at this time. He has had multiple surveillance colonoscopy is then flexible sigmoidoscopy so far seems he had a polypectomy done in 2021. [facility] Medical History Chest pain History of rectal cancer Rectal adenocarcinoma Actinic keratitis ARON on CPAP Skin lesion Hyperlipidemia PVC (premature ventricular contraction) GERD (gastroesophageal reflux disease) Surgical History History of colonoscopy with polypectomy (~10/13/23) History of flexible sigmoidoscopy (~04/21/23) History of colonoscopy (~2022) History of flexible sigmoidoscopy (03/04/22) Hx of umbilical hernia repair History of rectal polypectomy History of sigmoidoscopy Hx of colonoscopy History of hand surgery History of removal of cyst History of arthroscopy of right knee History of inguinal hernia repair Family History Father Prostate CA Mother Gastric cancer Cancer Brother Skin cancer Maternal Grandfather Throat cancer Lung cancer Paternal Uncle Throat cancer Lung cancer Paternal Aunt Gastric cancer Brother Melanoma Social History Household Members: Spouse Housing: House Alcohol intake: current Alcohol intake frequency: a few times a week Alcohol type: beer and wine Patient Tobacco Use Status: Former Tobacco user Tobacco use type: Cigarette Years Smoked: 15 e-Cigarette/Vaping Use: Never Used Second Hand Smoke Exposure: No service: Yes ([facility]) Current occupational status: employed Current occupational exposures/hazards: No Cognitive needs: No Hearing needs: No Vision needs: Yes Review of Systems Const Denies chills and Denies fever(s) Card Denies chest pain Resp Denies cough GI Denies abdominal pain and Denies GI cramping Denies hematuria and Denies difficulty urinating Musc Denies back pain and Denies limited range of motion Neuro Denies focal weakness and Denies convulsions Psych Denies depression and Denies mood swings Physical Exam Vital Signs: Last Vital Signs Pulse 75 10/26/23 09:02 BP 120/69 10/26/23 09:02 BMI result Body Mass Index 27.1 Const General: comfortable and no acute distress Orientation/consciousness: patient oriented x3 Neck Neck: Yes no lymphadenopathy Resp Effort & Inspection: normal respiratory effort Auscultation: clear to auscultation bilaterally Cardio Rhythm: regular rhythm GI Palpation (GI): Soft to palpation, not firm, nontender and no guarding Neuro General: patient oriented x3 Assessment & Plan Assessment & Plan (1) History of rectal cancer: Code(s): Z85.048 - Personal history of other malignant neoplasm of rectum, rectosigmoid junction, and anus Category: Medical Plan: He had a surveillance colonoscopy last 10/13/2023. There were 2 small polyps removed, 1 from the cecum and 1 from the proximal transverse colon. Both of these showed tubular adenomas without high-grade dysplasia. There were no lesions seen in the polypectomy site the rectum I would continue with close surveillance with another colonoscopy next year. I would repeat flexible sigmoidoscopy in 6 months I reviewed with him the technique of this about sigmoidoscopy. He understands the risks, benefits, and alternatives. He will schedule this for sometime in April,. Coding Level of Care Code Est Pt Level 2 (38981) Diagnoses History of rectal cancer Z85.048
[2023-10-26 09:02] VITALS: BP 120/69; PULSE 75; BMI 27.1
== END 2023-10-26 09:21 | disposition home or self-care (01) ==
PROVIDERS: PCP Internal Medicine; Visit Provider Surgery
DX: Z85.048 Personal history of other malignant neoplasm of rectum, rectosigmoid junction, and anus (principal)
CPT/HCPCS: 99212

== ENCOUNTER → 2023-10-26 08:55 | Outpatient (BNVA) | payer OTHER, SELFPAY | PROVIDERS: PCP Internal Medicine; Visit Provider Surgery | DX: Z85.048 Personal history of other malignant neoplasm of rectum, rectosigmoid junction, and anus (principal) | CPT/HCPCS: 99212 ==

== ENCOUNTER 2024-03-04 08:58 | Outpatient (AMB) | payer OTHER, SELFPAY ==
[2024-03-04 08:59] VITALS: BP 130/80; BMI 28.6
--- NOTE | 2024-03-04 08:59 | A.OFFPC_ITS ---
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 Accompanied by: Self / Same As Patient Allergies Penicillins [PENICILLINS] Allergy (Intermediate, Verified 03/04/24 09:07) UNKNOWN REACTION-CHILDHOOD ALLERGY Medication List - Last Reconciled 03/04/24 by Bebe Olguin MD pantoprazole 20 mg PO QAM rosuvastatin 10 mg PO DAILY Tobacco use date assessed: 03/04/24 Dental Screening Dental Screen Date: 03/04/24 Did you have a dental visit in the last 12 months?: Yes Did you have a dental problem in the last 6 months where you did not have access to dental care?: No Was dental information given to patient?: Patient has dentist HPI HPI Comments History of Present Illness Details The patient is a 53-year-old male with history of rectal adenocarcinoma presenting for his physical exam. The patient has a history of colon cancer with a tubular adenoma identified during a colonoscopy conducted in November of the previous year, indicating no current cancer presence. A potential new hernia was self-detected after experiencing pain, which the patient believes is similar to a past hernia identified in 2021 during cancer evaluation in the pelvic area. The patient also experienced heartburn for which pantoprazole is being administered and is on rosuvastatin 10 mg for hyperlipidemia management. There is an absence of symptoms such as chest pain or shortness of breath, and the patient reports normal bowel movements. Additionally, the patient denies any depression or anxiety symptoms. - Tdap vaccination updated in 2017; next dose due in 2027. - Last colonoscopy conducted in November of the previous year, showing tubular adenoma without cancer. - Completed influenza and COVID vaccinat ions in November of the current year. - Plans for cholesterol and sugar levels to be re-evaluated this year. - Fourth sigmoid procedure scheduled for April. [facility] Medical History (Updated 03/04/24 @ 09:21 by Bebe Olguin MD) Colon cancer Chest pain History of rectal cancer Rectal adenocarcinoma Actinic keratitis ARON on CPAP Skin lesion Hyperlipidemia PVC (premature ventricular contraction) GERD (gastroesophageal reflux disease) Surgical History History of colonoscopy with polypectomy (~10/13/23) History of flexible sigmoidoscopy (~04/21/23) History of colonoscopy (~2022) History of flexible sigmoidoscopy (03/04/22) Hx of umbilical hernia repair History of rectal polypectomy History of sigmoidoscopy Hx of colonoscopy History of hand surgery History of removal of cyst History of arthroscopy of right knee History of inguinal hernia repair Family History Father Prostate CA Mother Gastric cancer Cancer Brother Skin cancer Cancer of extraocular muscle Maternal Grandfather Throat cancer Lung cancer Paternal Uncle Throat cancer Lung cancer Paternal Aunt Gastric cancer Brother Melanoma Social History Household Members: Spouse Housing: House Alcohol intake: current Alcohol intake frequency: a few times a week Alcohol type: beer and wine Patient Tobacco Use Status: Former Tobacco user Tobacco use type: Cigarette Years Smoked: 15 e-Cigarette/Vaping Use: Never Used Second Hand Smoke Exposure: No service: Yes ([facility]) Current occupational status: employed Current occupational exposures/hazards: No Cognitive needs: No Hearing needs: No Vision needs: Yes Questionnaire PHQ-9 Over the last 2 weeks, how often have you been bothered by any of the following problems? 1. Little interest or pleasure in doing things: not at all 2. Feeling down, depressed, or hopeless: not at all 3. Trouble falling or staying asleep, or sleeping too much: not at all 4. Feeling tired or having little energy: not at all 5. Poor appetite or overeating: not at all 6. Feeling bad about yourself - or that you are a failure or have let yourself or your family down: not at all 7. Trouble concentrating on things, such as reading the newspaper or watching television: not at all 8. Moving or speaking so slowly that other people could have noticed. Or the opposite - being so fidgety or restless that you have been moving around a lot more than usual: not at all 9. Thoughts that you would be better off or of hurting yourself in some way: not at all Total score: 0 Depression Screening Interpretation: Negative Depression Screening Done: Yes 12959 - PHQ-9 Billing: Yes Source: Developed by Drs. Bud Wells, Rita Powers, José Miguel Jenkins and colleagues, with an educational yefri from [employer]. Thrive Questionnaire Date Thrive assessed: 03/04/24 I am a: Patient What is your living situation today?: I have a steady place to live Within the past 12 months, did the food you bought not last and you didn't have the money to get more?: Never true Within the past 12 months, did you worry whether your food would run out before you got money to buy more?: Never true Do you have trouble paying for medicines?: No Do you have trouble getting transportation to medical appointments?: No Do you have trouble paying your heating and electricity bill?: No Do you have trouble taking care of your child, family member or friend?: No Do you have trouble with day-to-day activities such as bathing, preparing meals, shopping, managing finances, etc.?: No Are you currently unemployed and looking for a job?: No Are you interested in more education?: No Please select the resources that you would like help with: None Currently or been in a relationship where the following occur: No concerns reported THRIVE Score: 0 AUDIT C Alcohol Use Questionnaire (AUDIT-C) 1. How often do you have a drink containing alcohol?: 2-3 times a week 2. How many drinks containing alcohol do you have on a typical day when you are drinking?: 3 or 4 3. How often do you have six or more drinks on one occasion?: Never Total Score: 4 ANKUSH-7 AMB Questionnaire ANKUSH-7 Date ANKUSH - 7 assessed: 03/04/24 Feeling nervous, anxious, or on edge: 0 = Not at all Not being able to stop or control worryin = Not at all Worrying too much about different things: 0 = Not at all Trouble relaxin = Not at all Being so restless that it is hard to sit still: 0 = Not at all Becoming easily annoyed or irritable: 0 = Not at all Feeling afraid as if something awful might happen: 0 = Not at all Total ANKUSH-7 score (0-4 normal; 5-9 mild; 10-14 moderate; 15-21 severe): 0 Source: Developed by Rita Tran Kurt Kroenke and colleagues, with an educational yefri from [employer]. ANKUSH-7 Assessment Billing ANKUSH-7 Assessment Tool: ANKUSH-7 Assessment 38376 Review of Systems Const All systems reviewed & are unremarkable except as noted in HPI and below Card Denies chest pain at rest, Denies chest pain with activity, Denies edema, Denies irregular heart rhythm, Denies claudication, Denies dyspnea, Denies dyspnea on exertion, Denies orthopnea, Denies paroxysmal nocturnal dyspnea and Denies slow heart rate Resp Denies cough, Denies dyspnea and Denies dyspnea on exertion GI Denies abdominal pain, Denies change in bowel habits, Denies excessive flatus, Denies nausea and Denies vomiting Neuro Denies lack of coordination Physical exam (Primary Care) Vital Signs: Last Vital Signs BP 130/80 03/04/24 08:59 BMI result Body Mass Index 28.6 Tobacco/Smoking Status: Tobacco use Status Tobacco use date assessed 03/04/24 03/04/24 09:04 Patient Tobacco Use Status Former Tobacco user 03/04/24 09:04 Tobacco use type Cigarette 03/04/24 09:04 e-Cigarette/Vaping Use Never Used 03/04/24 09:04 PHQ-9: PHQ-9 Score PHQ-9: Total score 0 03/04/24 09:04 Depression Screening Interpretation: Negative Thrive Assessment: Date of Thrive Assessment Date Thrive assessed 02/27/24 03/04/24 09:04 Currently or been in a relationship where the following occur: No concerns repo rted Const General: cooperative HENMT Head: Yes normal to inspection, Yes normocephalic and Yes atraumatic Ears: external ears normal Eyes General: appearance normal, both eyes and all related structures Eyelids: Yes eyelids normal Conjunctivae: conjunctivae normal Neck Neck: Yes normal visual inspection and Yes supple Resp Effort & Inspection: normal respiratory effort Auscultation: clear to auscultation bilaterally Cardio Jugular venous distension: no JVD Rate: regular rate Rhythm: regular rhythm Heart sounds: S1 normal heart sound present and S2 normal heart sound present GI Inspection: Yes normal to inspection Palpation (GI): Soft to palpation, nontender and Hernia present direct inguinal on the left Auscultation: normal bowel sounds Skin General skin exam: no rashes or lesions noted Neuro General: no focal motor deficits Extrem General: Yes full ROM Psych Appearance: grossly normal Coding Level of Care Code Est Pt Level 3 (54417) Est Pt Prev Care 40-64y(37519) Diagnoses Physical exam Z00.00 Rectal adenocarcinoma C20 Left inguinal hernia K40.90 Additional Codes PHQ-9 - 45461 - PHQ-9 Billing: Yes ([id number]) ANKUSH-7 Assessment Billing - ANKUSH-7 Assessment Tool: ANKUSH-7 Assessment 70799 ([id number]) Time Spent (min) 33 Assessment & Plan Assessment & Plan (1) Physical exam: Code(s): Z00.00 - Encounter for general adult medical examination without abnormal findings Category: Medical (2) Rectal adenocarcinoma: Code(s): C20 - Malignant neoplasm of rectum Category: Medical (3) Left inguinal hernia: Code(s): K40.90 - Unilateral inguinal hernia, without obstruction or gangrene, not specified as recurrent Category: Medical Plan - Arrange an ultrasound to assess the potential new hernia. - Based on ultrasound findings, consider referral to surgery for hernia repair. - Continue monitoring given the history of colon cancer; follow-up colonoscopy scheduled for April. - Continue medications: pantoprazole for heartburn and rosuvastatin for hyperlipidemia. - Watch for signs and symptoms of hernia complications, and return if they worsen. - Plan to repeat labs to assess cholesterol and kidney function within the year. Patient was informed and verbally consented to the use of an ambient scribe for clinic note documentation during this visit. I discussed with the patient the probable recurrence of a hernia based on his description of the location and sensation. Given his previous history of hernia during cancer evaluation, I suggested obtaining an ultrasound to confirm the diagnosis and determine the appropriate surgical intervention if needed. The patient was informed of the benefits and risks associated with surgery should it become necessary. We also reviewed his colon cancer surveillance plan, including the scheduled sigmoid procedure. I answered his questions and recommended continuing his medications and to adhere to his health maintenance schedule with labs to recheck lipid levels. Orders: Orders Lipid Panel Today E78.5 - Hyperlipidemia, unspecified Comprehensive [place]. Panel Fast Today Z00.00 - Encounter for general adult medical examination without abnormal findings US abdomen limited Today K40.90 - Unilateral inguinal hernia, without obstruction or gangrene, not specified as recurrent Patient Instructions: - Schedule and attend an ultrasound for hernia evaluation. - Monitor for and report any new or worsening symptoms such as increased pain or bowel obstruction. - Continue taking all prescribed medications as directed. - Keep the upcoming colonoscopy appointment. - Return for follow-up with lab results for cholesterol and kidney function testing. - Maintain vaccinations as per schedule, with no additional needed at present except as planned. - Follow guidelines for healthy lifestyle and dietary management, particularly for heartburn and cholesterol control.
--- OUTSIDE RECORDS SUMMARY | 2024-03-04 13:17 | XMS_ITS ---
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 Generated for Elmira sparrow/Jose/eTransmitting on:?03/04/2024 01:17 PM EST
--- OUTSIDE RECORDS SUMMARY | 2024-03-04 13:17 | XMS_ITS | Patient Health Record ---
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 Name Role Phone Bebe Ruggiero MD Primary Care Provider Unavail able Gloria Edwards Unavailable [phone] Allergies Allergen (clinical drug ingredient) Drug/Non Drug Allergy documented on EMR Reaction Allergy Type Onset Date Status Penicillin rash Drug Allergy Active Reason For Referral Diagnosis 1 Raynaud's disease wi thout gangrene (I73.00) Diagnosis 2 Tinea unguium (B35.1 ) Diagnosis 3 Pain in right toe(s) (M79.674) Diagnosis 4 Pain in left toe(s) (M79.675) Diagnosis 5 Contusion of lesser toe of left foot with damage to nail, initial encounter (S90.222A) Diagnosis 6 Contusion of lesser toe of right foot with damage to nail, initial encounter (S90.221A) Diagnosis 7 Chilblains, initial encounter (T69.1XXA) Referring Provider First Name Bebe Referring Provider Last Name Monik Referred Organization [facility] Anuj Referred Provider Gloria Edwards Referred Address [address] [facility],[place], [place],[address], Referred Provider Specialty Podiatry Referral Priority Routine Medications Medication SIG (Take, Route, Fr equency, Duration) Notes Start Date End Date Status Propranolol HCl 40 MG 0.5 tablet Orally Three times a day 04/17/2017 Unknown Ranitidine HCl 150 MG 1 capsule at bedti me Orally Once a day 04/17/2017 Unknown Ibuprofen 800 MG 1 tablet with food o r milk as needed Orally prn Unknown Centrum Ultra Mens U nknown Rosuvastatin Calcium Active Pantoprazole Sodium Active Nitro-Bid 2 % as directed Transder mal daily for as needed 04/18/2017 Unknown Social History Tobacco Use: Social History Observation Description Date Details (start date - stop date) Former Smoker NA - NA Tobacco Use/Smoking Question Answer Notes Are you a: former smoker Additional Findings: Tobacco Non-User Current no n-smoker Alcohol Screen Question Answer Notes Did you have a drink containing alcohol in the p ast year? Yes Points 0 Interpretation Negative Tobacco use other than smoking: Question Answer Notes Are you an other tobacco user? No Problems Problem Type SNOMED Code ICD Code Onset Dates Problem Status W/U Status Risk Notes Problem [id number] Raynaud's disease without gangrene (I73.00) Active confirmed Vital Signs Blood pressure diastolic 85 mm Hg 08/11/2023 Height 6ft in 08/11/2023 Blood pressure systolic 131 mm Hg 08/11/2023 Weight 198 lbs 08/11/2023 BMI 26.85 kg/m2 08/11/2023 Encounters Encounter Location Date Provider Diagnosis [facility] [address] [address] 08/11/2023 Gloria Edwards Plantar fasciitis, bilateral M72.2 [facility] [address] [address] 06/22/2023 Gloria Edwards Assessments Encounter Date Diagnosis (ICD Code) Assessment Notes Treatment Notes Treatment Clinical Notes Section Notes 08/11/2023 Plantar fasciitis, bilateral (ICD-10 - M72.2) Patient Educated with: HEEL CORD STRETCHES.pdf (HEEL CORD STRETCHES.pdf) Patient Educated with: RICE THERAPY.pdf (RICE THERAPY.pdf) Plan Of Treatment No Information Insurance Providers Payer Name Payer Address Payer Phone Subscriber Number Group Number Insured Name Patient Relationship to Insured Coverage Start Date Coverage End Date [facility] [address] [place] [address] [id number] Ulises Alvarez Self - patient is the insured Medical (General) History Medical History History ICD Code Reflux ( GERD) palpitations Sleep apnea Headaches Migraines Hyperlipidemia Skin neoplasm Raynauds syndrome, w/o gangrene family history of brain aneurysm, normal CTA brain, normal MRI, 2009 Chicken pox Knee Pain Cancer Surgical History Surgery Date(Month/Year) hernia L Hand Surgery 1985 R Knee Surgery 2007 R Knee Surgery 05/03/16 colonoscopy
--- OUTSIDE RECORDS SUMMARY | 2024-03-04 13:17 | XMS_ITS ---
[facility] Address [address] [place] [address] Care Team Providers Care Structural Technician Name Role Phone Monik SALVADOR, Bebe Primary Care Provider Unavail able Gloria Edwards Unavailable [phone] Allergies Allergen (clinical drug ingredient) Drug/Non Drug Allergy documented on EMR Reaction Allergy Type Onset Date Status Penicillin rash Drug Allergy Active REASON FOR VISIT Pcp-04/17/23, Heel pain Medications Medication SIG (Take, Route, Fr equency, Duration) Notes Start Date End Date Status Propranolol HCl 40 MG 0.5 tablet Orally Three times a day 04/17/2017 Unknown Centrum Ultra Mens U nknown Rosuvastatin Calcium Active Pantoprazole Sodium Active Nitro-Bid 2 % as directed Transder mal daily for as needed 04/18/2017 Unknown Ranitidine HCl 150 MG 1 capsule at bedti me Orally Once a day 04/17/2017 Unknown Ibuprofen 800 MG 1 tablet with food o r milk as needed Orally prn Unknown Social History Tobacco Use: Social History [...] Are you an other tobacco user? No Vital Signs Height 6ft in 08/11/2023 Weight 198 lbs 08/11/2023 BMI 26.85 kg/m2 08/11/2023 Blood pressure systolic 131 mm Hg 08/11/19 24 Blood pressure diastolic 85 mm Hg 024 Encounters Encounter Location Date Provider [facility] [address] [place] [address] 08/11/2023 Gloria Edwards Plantar fasciitis, bilateral M72.2 Assessments Encounter Date Diagnosis (ICD Code) Assessment Notes Treatment Notes Treatment Clinical Notes Section Notes 08/11/2023 Plantar fasciitis, bilateral (ICD-10 - M72.2) Patient Educated with: HEEL CORD STRETCHES.pdf (HEEL CORD STRETCHES.pdf) Patient Educated with: RICE THERAPY.pdf (RICE THERAPY.pdf) Plan Of Treatment Treatment Notes Assessment Notes Plantar fasciitis, bilateral Patient Edu cated with: HEEL CORD STRETCHES.pdf (HEEL CORD STRETCHES.pdf) Patient Educated with: RICE THERAPY.pdf (RICE THERAPY.pdf) Next Appt Details Follow Up: prn, Reason: Progress Notes * Ulises ALVAREZ ADOB:[birth year] (53 yo M)Acc No.[id number]:08/11/2023 Progress Notes Patient:?Ulises Alvarez Provider:?Gloria Edwards DPM :1970???Age:53 Y???Sex:Male Derek e:08/11/2023 Address:[address] [place], [place] [id number] Pcp:Bebe Ruggiero MD Subjective: * Chief Complaints: * ???Pcp-04/17/23eel pain * HPI: ???Heel pain:?Nature:?tenderness, sharp pain, stiffness.?Location:?Proximal plantar aspect of Heel , B/L.?Course:?improved.?Aggrevated:?standing, walking, walking first thing in the morning/after rest.?Treatments:?rest/alter normal daily activity.? * ROS:?General/Constitutional:?Nausea?denies.?Vomiting?denies.?Hunger Thirst?denies.?Loss appetite?denies.?Chills?denies.?Fatigue?denies.?Fever?denies.?Night Sweats?denies.?Unexplained weight loss?denies.?Unexplained weight gain?denies.?HEENTM:?Dentures?denies.?Dizziness?denies.?Glasses/contacts?admits.?Retinopathy?de nies.?Blurred/double vision?denies.?TMJ?denies.?Discharge/drainage?denies.?Implants?denies.?Sore throat?denies.?Dental implants?denies.?Hard of hearing ?denies.?Difficulty chewing/swallowing/speaking?denies.?Nose bleeds?denies.?Sore mouth?denies.?Respiratory:?On Oxygen?denies.?Pneumonia/pleurisy?denies.?Bronchitis?denies.?Emphysema?denies.?C oughing?denies.?Cough blood?denies.?Shortness of breath?denies.?Wheezing?denies.?Cardiovascular:?Pacemaker?denies.?MVP?denies.?WPW?denies.?CHF?denies.?Heart attack?denies.?Septal defect?denies.?Rapid beat?denies.?Chest pain ?denies.?Atrial Fib.?denies.?Murmur/Palpitations?admits.?Gastrointestinal:?Hemorrhoids?denies.?Stomach/Abdominal pain?denies.?Dark blood stool?denies.?Irritable bowel ?denies.?Constipation?denies.?Diarrhea?denies.?Hematology:?Swelling?denies.?Clots?denies.?Varicose Veins?denies.?Bruising?denies.?Bleeding problem?denies.?Genitourinary:?Blood urine?denies.?Frequent/Painfu/urination/bladder control?denies.?Kidney stones?denies.?Infection (UTI)?denies.?Nephropathy?denies.?sex trans dis (STD)?denies.?Prostate?denies.?Musculoskeletal:?Hammertoes?denies.?Bunions?denies.?Back Pain?denies.?Muscle Cramps/ Resting?denies.?Muscle cramps / walking?denies.?Generalized aches and pains?denies.?Weakness?denies.?Integ.:?Pelayo?denies.?Scars?denies.?Corns/calluses?denies.?Ingrown nails?denies.?Painful nails?denies.?Open Sores?denies.?Rashes?denies.?Neurologic:?Difficulty sleeping?denies.?Brain disorder?denies.?Numbness?denies.?Balance trouble?denies.?Confusion?denies.?Fainting/blackouts?denies.?Tingling?denies.?Tr emors?denies.? * Medical History:? * Surgical History:?hernia 197 03/2021L Hand Surgery 1986R Knee Surgery 2008R Knee Surgery 05/03/16colonoscopy * Hospitalization/Major Diagno stic Procedure:?Denies Past Hospitalization * Family History:?Mother: dece ased, ovarian and gastric cancer, diagnosed with Other malignant neoplasm of unspecified site.?Father: .?Paternal Grand Mother: heart attack.?Siblings: 2 brothers, skin cancer, sister stroke , age 54, 2 brain aneurysms, diagnosed with Unspecified cerebral artery occlusion with cerebral infarction, Other malignant neoplasm of unspecified site.?Maternal Grand Father: diagnosed with Other malignant neoplasm of unspecified site.?Maternal uncle: diagnosed with Other malignant neoplasm of unspecified site.? * Social History:?Tobacco Use:?Tobacco Use/Smoking?Are you a:?former smoker ?Additional Findings: Tobacco Non-User?Current non-smoker ?Tobacco use other than smoking?Are you an other tobacco user??No ???Drugs/Alcohol:?Drugs?Have you used drugs other than those for medical reasons in the past 12 months??No ?Alcohol Screen?Did you have a drink containing alcohol in the past year??Yes ?Points?0 ?Interpretation?Negative ???Miscellaneous:?Caffeine: yes, coffee 2 cups per day. ?no Children. ?Exercise: yes, walking, knitting. ?Marital status: . ?Occupation: [employer]. * Medications:?TakingPantopraz ole Sodium Rosuvastatin Calcium Taking Pantoprazole Sodium Taking Rosuvastatin Calcium UnknownCentrum Ultra Mens Ibuprofen 800 MG Tablet 1 tablet with food or milk as needed Orally prnRanitidine HCl 150 MG Capsule 1 capsule at bedtime Orally Once a dayPropranolol HCl 40 MG Tablet 0.5 tablet Orally Three times a dayNitro-Bid 2 % Ointment as directed Transdermal dailyMedication List reviewed and reconciled with the patientUnknown Centrum Ultra Mens Unknown Ibuprofen 800 MG Tablet 1 tablet with food or milk as needed Orally prnUnknown Ranitidine HCl 150 MG Capsule 1 capsule at bedtime Orally Once a dayUnknown Propranolol HCl 40 MG Tablet 0.5 tablet Orally Three times a dayUnknown Nitro-Bid 2 % Ointment as directed Transdermal dailyMedication List reviewed and reconciled with the patient * Allergies:?Penicillin: rashy es[Allergies Verified] Objective: * Vitals:?Ht: 6ft, Wt:198, BMI :26.85, Shoe size: 10.5, BP:131/85 mm Hg, Ht-cm: 182.88 cm, Wt-k.81 kg. * Examination: ???General Examination: ?GENERAL APPEARANCE:?Reveals a pleasant, alert, well-nourished, well- developed, well hydrated individual, who demonstrates proper attention to hygiene/body habitus, and is in no acute distress, Pt serves as own?historian for office visit today.?ORIENTED:?person, place, and time.?Neurological: ?SENSORY:?Neurological exam reveals intact sensorium, pain sensation normal, vibration sensation intact, pinprick sensation is normal in the lower extremities, Pt denies, anesthesia, burning, paresthesia, tingling, B/L.?TINEL'S COMPRESSION:?Negative tarsal tunnel, kyle pedis, and medial calcaneal nerves.?DEEP TENDON REFLEXES:?Achilles, 2/4, B/L.?Vascular: ?DP PULSES:?3/4, B/L.?PT PULSES:?3/4, B/L.?CAPILLARY FILL TIME:?immediate, all digits, B/L.?SKIN TEMPERTURE GRADIENT OF THE LOWER EXTERMITIES:?warm to cool, proximal to distal, B/L.?HAIR GROWTH/TEXTURE/ELASTICITY/TURGOR:?normal, B/L.?PIGMENTATION:?normal, B/L.?EDEMA:?absent, B/L.?Dermatologic: ?SKIN FINDINGS:?Skin exam reveals normal texture, elasticity, and turgor. There are no masses. The interspaces are clear.?Orthopedic: ?MUSCLE STRENGTH:?5/5 all groups in a symmetrical fashion , B/L.?FOOTWEAR:?shoe gear properties exacerbate patients foot/toe deformity.?Heel Pain: ?INSPECTION REVEALS:?NO Pain on Palpation to Plantar Fascia med. and central bands, intrinsic musc., infra-calcaneal bursa, and med calc tubercle, B/L, No pain: posterior/superior heel, achilles bursa/tendon, sinus tarsi, peroneals, or with lateral heel compression; no limited STJ ROM, calor, or ecchymosis.? Assessment: * Assessment: 1.?Plantar fasciitis, bilate ral - M72.2 (Primary)? Plan: * Treatment: * Procedure Codes:? * Preventive Medicine:? ??Counseling:?Discussion:?-03: Office or other outpatient visit for the evaluation and management of a new patient, which required a medically appropriate history and/or examination and LOW level of DECISION MAKING for: 1 STABLE ACUTE UNCOMPLICATED PROBLEM, 2 OR MORE MINOR PROBLEMS, OR 1 STABLE CHRONIC PROBLEM, THAT POSE(S) A LOW RISK FOR MORBIDITY/MORTALITY. The visit on the day of the encounter encompassed interpreting the data and educating the patient as to the nature of their condition, treatment options available according to their individual PMH, meds, allergies, and overall health/living conditions, as well as any potential risks or complications that may occur from a failure to adhere to, and participate in, the recommended course of therapy. The discussion included a complete verbal, and/or written explanation of the examination results, any x-rays taken, the proposed diagnosis, and outline of the treatment plan. A schedule for future care needs was also explained. The patient verbalized an understanding of the instructions at this time and agreed to be an active participant in their treatment. If the patient should think of any questions or concerns after the visit, I have encouraged the patient to call the office.?Heel pain:?FASCIITIS: I explained to the patient the possible etiologies of Plantar Fasciitis including foot type/shoegear/activity level/exercise routine and the risks/benefits of all the different treatment options for heel pain including: No treatment at all, Rest, Ice, NSAIDs(only if well tolerated after meals), New/supportive Shoegear, Strappings and Tapings, Stretching exercises, Deep Tissue Massage, Heel cups/cushions, Arch support/shoe inserts, Custom orthoses, Topical analgesics including Aspercream/Voltaren gel, Night splint AFO for am stiffness, Cortisone injection therapy, Cast boot with crutches/cane/or walker for assisted ambulation, Physical Therapy, EPAT/ESWT, Interfil injection therapy, as well as surgical [place]/Endoscopic Fasciitomy surgical procedures if needed. Recommendations were made to limit barefoot walking, eliminate wearing nonsupportive shoegear (i.e. flip-flops or sandals, or a shoe with an easily bendable, foldable, or twistable sole) and wear shoegear with a good solid sole, a supportive arch, and plenty of room for an insert/orthotic if necessary. If wearing sandals was required by the patient, we recommended orthopedic sandals such as Orthoheel or Birkenstock even while in the home. If the patient wore heels in the past, we recommended they continue, but eliminate the use of flats. The advantages and disadvantages of each option were discussed and the patients questions re: types of shoegear, custom vs prefabricated inserts, activity level, PO vs Topical medications (and their respective potential complications/drug interactions/side effects), and consistency in home treatment regimens for optimal success were answered to their satisfaction. Literature detailing plantar fasciitis and the various treatment options were dispensed and reviewed.?P.R.I.C.E.:?The patient was counseled on the use of P.R.I.C.E. and NSAIDS (if well tolerated) to aid in the recovery from their painful condition.?Shoe Gear Counseling:?The patient and I reviewed the types of shoes they should be wearing. My recommendation included obtaining a well-fitted shoe with a good supportive, non-foldable nor twistable sole, plenty of toe/room for the forefoot, and proper arch support. Based on todays examination, I recommended the patient look for new shoes, by having their feet professionally measured. We discussed that generally the best time of the day for a shoe fitting is the afternoon. Different shoes types and brands to best match the patients occupation and vocation were discussed. Specific brand selection will be up to the patient, their individual foot condition/deformities, and fit. The patient and I reviewed the standard new shoe break in period by wearing them for a few hours a day while checking for redness or sores as wear time is increased. The patient verbally confirmed to understanding the information discussed.?Stretching Exercises:?Stretching and deep tissue massage exercises for the patients injury/diagnosis were discussed and demonstrated, handouts were dispensed.? * Follow Up:?prn * Images: * Sign off status: Completed true * Provider:?Gloria Edwards DPM Date:?06/2023 Generated for Elmira sparrow/Jose/eTransmitting on:?03/04/2024 01:17 PM EST History and Physical Notes * HPI (History of Present Illness) Category Sub-Category Detail Notes Category Not es Heel pain Nature: tenderness, sharp pain, stif fness Location: Proximal plantar asp ect of Heel , B/L Aggravated: standing, walking, w alking first thing in the morning/after rest Course: improved Treatments: rest/alter normal da kendra activity Examination Category Sub-Category Detail Notes Category Not es Heel Pain INSPECTION REVEALS: NO Pain on P alpation to Plantar Fascia med. and central bands, intrinsic musc., infra-calcaneal bursa, and med calc tubercle, B/L, No pain: posterior/superior heel, achilles bursa/tendon, sinus tarsi, peroneals, or with lateral heel compression; no limited STJ ROM, calor, or ecchymosis Neurological SENSORY: Neurological exa m reveals intact sensorium, pain sensation normal, vibration sensation intact, pinprick sensation is normal in the lower extremities, Pt denies, anesthesia, burning, paresthesia, tingling, B/L TINEL'S COMPRESSION: Negative tarsal juan mikaela, kyle pedis, and medial calcaneal nerves DEEP TENDON REFLEXES: Achilles, 2/4, B/L Dermatologic SKIN FINDINGS: Skin exam reveal s normal texture, elasticity, and turgor. There are no masses. The interspaces are clear Orthopedic FOOTWEAR: shoe gear proper ties exacerbate patients foot/toe deformity MUSCLE STRENGTH: 5/5 all groups in a symmetrical fashion , B/L General Examination GENERAL APPEARANCE: Reveals a pleasant, alert, well- nourished, well-developed, well hydrated individual, who demonstrates proper attention to hygiene/body habitus, and is in no acute distress, Pt serves as own historian for office visit today ORIENTED: person, place, and t galina Vascular DP PULSES (B): 3/4, B/L PT PULSES (B): 3/4, B/L CAPILLARY FILL TIME: immediate, all digi ts, B/L TEMPERTURE GRADIENT (C): warm to cool, p roximal to distal, B/L TROPHIC CONDITION-TEXTURE/ELASTICITY/TURGOR/HAIR GROWTH (B): normal, B/L EDEMA (C): absent, B/L PIGMENTATION: normal, B/L
--- OUTSIDE RECORDS SUMMARY | 2024-03-04 13:18 | XMS_ITS | Continuity of Care Document ---
Author Name [facility] Organization [facility] Care Team Providers Care Chart Clerk Name Role Phone [facility] Unavailable Unavailable Problems Combined list of problems from Department of Defense and Veterans Affairs facilities. It does not include entries that were removed or entered in error. Problem Status Onset Date Problem Type Date of Resolution Comments Source visit for: administrative purpose Inactive Condition DoD no psychiatric diagnosis or condition on axis I Inactive Condition DoD visit for: occupational health / fitness exam Inactive Condition DoD Allergies, Adverse Reactions, Alerts Combined list of allergies from Department of Defense and Veterans Affairs facilities. It does not include entries that were removed or entered in error. Substance Category Reaction Severity Reaction type Status Date Reported Comments Source PENICILLIN G (PENICILLIN G PROCAINE) Drug allergy (disorder) Unknown active 05/21/2004 [facility] Immunizations Combined list of available immunizations from the Department of Defense and Veterans Affairs facilities. 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 (MOD) complet ed SARS-COV- 2 (COVID-19 ) vaccine, mRNA, spike protein, LNP, preservat thais free, 100 mcg or 50 mcg dose DoD SARS-COV-2 (COVID-19) vaccine, mRNA, spike protein, LNP, preservative free, 100 mcg or 50 mcg dose 2 2020 Unknown, Provider [id number] Cell[employer] (MOD) complet ed SARS-COV- 2 (COVID-19 ) vaccine, mRNA, spike protein, LNP, preservat thais free, 100 mcg or 50 mcg dose DoD SARS-COV-2 (COVID-19) vaccine, mRNA, spike protein, LNP, preservative free, 100 mcg or 50 mcg dose 1 2020 Unknown, Provider [id number] 207 Roamz. (MOD) complet ed SARS-COV- 2 (COVID-19 ) vaccine, mRNA, spike protein, LNP, preservat thais free, 100 mcg or 50 mcg dose DoD Influenza, injectable, quadrivalent, preservative free 0 2018 150 (MVX) complet ed Influenza , injectabl e, quadrival ent, preservat thais free DoD Influenza, seasonal, injectable 1 2017 [id number] Seqirus (SEQ) comple t ed Influenza , seasonal, injectabl e DoD Influenza, injectable, Madin Palmer Canine Kidney, preservative free, quadrivalent 0 2017 171 (MVX) complet ed Influenza , injectabl e, Madin Adriana Canine Kidney, preservat thais free, quadrival ent DoD tetanus toxoid, reduced diphtheria toxoid, and acellular pertu is vaccine, adsorbed 3 2017 [id number] 115 Sanofi Pasteur (PMC) complet ed tetanus toxoid, reduced diphtheri a toxoid, and acellular pertussis vaccine, adsorbed DoD Influenza, injectable, MDCK, preservative free, quadrivalent 2016 FOSTER, () Not Given Influenza , injectabl e, MDCK, preservat thais free, quadrival ent DoD influenza virus vaccine, unspecified formulation 1 2016 [id number] Seqirus (SEQ) comple t ed influenza virus vaccine, unspecifi ed formulati on DoD Influenza, injectable, MDCK, preservative free, quadrivalent 2015 DARIANA, () Not Given Influenza , injectabl e, MDCK, preservat thais free, quadrival ent DoD Influenza, seasonal, injectable, preservative free 1 2014 [id number] 140 GateMe[employer] Inc. (CSL) complet ed Influenza , seasonal, injectabl e, preservat thais free DoD Influenza, seasonal, injectable 1 2013 [id number] Transcribed (TRS) complet ed Influenza , seasonal, injectabl e DoD Influenza, seasonal, injectable 0 2012 141 (MVX) complet ed Influenza , seasonal, injectabl e DoD Influenza, seasonal, injectable 1 2011 [id number] 141 Sanofi Pasteur (PMC) complet ed Influenza , seasonal, injectabl e DoD Influenza, seasonal, injectable, preservative free 1 2010 140 Novartis Pharmaceutica l Prosper. (NOV) complet ed Influenza , seasonal, injectabl e, preservat thais free DoD influenza virus vaccine, split virus (incl. purified surface antigen)-reti red CODE 2 2009 [id number] 15 Novartis Pharmaceutica l Prosper. (NOV) complet ed influenza virus vaccine, split virus (incl. purified surface antigen)- retired CODE DoD Novel influenza-H1N 1-09, injectable 1 2009 [id number] 1 127 Novartis Pharmaceutica l Prosper. (NOV) complet ed Novel influenza -[id number], injectabl e DoD influenza virus vaccine, live, attenuated, for intranasal use 1 2008 [id number] 111 KCF Technologies[employer] Inc. (MED) complet ed influenza virus vaccine, live, attenuate d, for intranasa l use [facility] typhoid Vi capsular polysaccharid e vaccine 1 2008 [id number] 101 Sanofi Pasteur ([facility]) complet ed typhoid Vi capsular polysacch aride vaccine DoD influenza virus vaccine, split virus (incl. purified surface antigen)-reti red CODE 1 2007 [id number] 15 [facility]) complet ed influenza virus vaccine, split virus (incl. purified surface antigen)- retired CODE DoD tetanus toxoid, reduced diphtheria toxoid, and acellular pertu is vaccine, adsorbed 1 2007 [id number] 115 Sanofi Pasteur ([facility]) complet ed tetanus toxoid, reduced diphtheri a toxoid, and acellular pertussis vaccine, adsorbed DoD influenza virus vaccine, split virus (incl. purified surface antigen)-reti red CODE 1 2006 [id number] 15 Perio Sciencesine ([facility]) complet ed influenza virus vaccine, split virus (incl. purified surface antigen)- retired CODE DoD typhoid vaccine, parenteral, other than acetone-kille d, dried 1 2006 [id number] 41 Sanofi Pasteur ([facility]) complet ed typhoid vaccine, parentera l, other than acetone-k illed, dried [facility] influenza virus vaccine, live, attenuated, for intranasal use 1 2005 [id number] 111 [employer] Inc[employer] (MED) complet ed influenza virus vaccine, live, attenuate d, for intranasa l use DoD influenza virus vaccine, split virus (incl. purified surface antigen)-reti red CODE 1 2004 [id number] 15 Sanofi Pasteur ([facility]) complet ed influenza virus vaccine, split virus (incl. purified surface antigen)- retired CODE DoD typhoid vaccine, parenteral, other than acetone-kille d, dried 1 2004 [id number] 41 Sanofi Pasteur ([facility]) complet ed typhoid vaccine, parentera l, other than acetone-k illed, dried DoD influenza virus vaccine, live, attenuated, for intranasal use 0 2004 [id number] 111 [employer] ([facility]) complet ed influenza virus vaccine, live, attenuate d, for intranasa l use DoD influenza virus vaccine, whole virus 0 2002 [id number] 16 Sanofi Pasteur ([facility]) complet ed influenza virus vaccine, whole virus DoD tuberculin skin test; purified protein derivative solution, intradermal 1 2002 Unknown, Provider [id number] 96 [facility] ([facility]) complet ed tuberculi n skin test; purified protein derivativ e solution, intraderm al DoD typhoid vaccine, parenteral, other than acetone-kille d, dried 0 2002 [id number] 41 Transcribed (TRS) complet ed typhoid vaccine, parentera l, other than acetone-k illed, dried DoD influenza virus vaccine, whole virus 0 2001 [id number] 16 Transcribed (TRS) complet ed influenza virus vaccine, whole virus DoD influenza virus vaccine, whole virus 0 2001 [id number] 16 Sanofi Pasteur ([facility]) complet ed influenza virus vaccine, whole virus DoD tuberculin skin test; purified protein derivative solution, intradermal 1 2001 Unknown, Provider [id number] 96 Sanofi Pasteur ([facility]) complet ed tuberculi n skin test; purified protein derivativ e solution, intraderm al DoD influenza virus vaccine, whole virus 0 2000 [id number] 16 Wyeth-Ayerst (Inactive) ([place]) complet ed influenza virus vaccine, whole virus DoD tuberculin skin test; purified protein derivative solution, intradermal 1 1999 Unknown, Provider [id number] 96 [facility] ([facility]) complet ed tuberculi n skin test; purified protein derivativ e solution, intraderm al DoD anthrax vaccine 5 1999 [id number] [facility] (MIP) complet ed anthrax vaccine DoD anthrax vaccine 4 1998 [id number] [employer] [place] (MIP) complet ed anthrax vaccine DoD influenza virus vaccine, whole virus 0 1998 [id number] 16 Timbo (CON) complet ed influenza virus vaccine, whole virus DoD tuberculin skin test; purified protein derivative solution, intradermal 1 1998 Unknown, Provider [id number] 96 Christos () complet ed tuberculi n skin test; purified protein derivativ e solution, intraderm al DoD anthrax vaccine 3 1998 [id number] 24 [employer] [place] ([facility]) complet ed anthrax vaccine DoD anthrax vaccine 2 1998 [id number] 24 [employer] [place] ([facility]) complet ed anthrax vaccine DoD anthrax vaccine 1 1998 [id number] 24 [employer] [place] ([facility]) complet ed anthrax vaccine DoD hepatitis B vaccine, adult dosage 3 1998 [id number] 43 Merck (MSD) complet ed hepatitis B vaccine, adult dosage DoD hepatitis B vaccine, adult dosage 2 1998 [id number] 43 Merck (MSD) complet ed hepatitis B vaccine, adult dosage DoD hepatitis B vaccine, adult dosage 1 1997 [id number] 43 Merck (MSD) complet ed hepatitis B vaccine, adult dosage DoD measles, mumps and rubella virus vaccine 0 1997 [id number] 03 Merck (MSD) complet ed measles, mumps and rubella virus vaccine DoD influenza virus vaccine, whole virus 0 [id number] 16 Edel (Inactive) ([place]) complet ed influenza virus vaccine, whole virus DoD hepatitis A vaccine, adult dosage 2 1997 [id number] 52 Merck (MSD) complet ed hepatitis A vaccine, adult dosage DoD tuberculin skin test; purified protein derivative solution, intradermal 1 1997 Unknown, Provider [id number] 96 Timbo (CON) complet ed tuberculi n skin test; purified protein derivativ e solution, intraderm al DoD trivalent poliovirus vaccine, live, oral 0 1997 [id number] 02 Oscar (LED) comple t ed trivalent polioviru s vaccine, live, oral DoD meningococcal polysaccharid e vaccine (MPSV4) 0 [id number] 32 Timbo (CON) complet ed meningoco ccal polysacch aride vaccine (MPSV4) DoD yellow fever vaccine 0 [id number] 37 Timbo (CON) complet ed yellow fever vaccine DoD yellow fever vaccine 0 1997 37 () complet ed yellow fever vaccine DoD hepatitis A vaccine, adult dosage 1 1997 [id number] 52 Merck (MSD) complet ed hepatitis A vaccine, adult dosage DoD tetanus and diphtheria toxoids, adsorbed, preservative free, for adult use (2 Lf of tetanus toxoid and 2 Lf of diphtheria toxoid) 0 1996 [id number] Lederle (LED) comple t ed tetanus and diphtheri a toxoids, adsorbed, preservat thais free, for adult use (2 Lf of tetanus toxoid and 2 Lf of diphtheri a toxoid) DoD influenza virus vaccine, whole virus 0 1996 16 () complet ed influenza virus vaccine, whole virus DoD typhoid vaccine, live, oral 0 1996 [id number] 25 [employer] (SI) complet ed typhoid vaccine, live, oral DoD tuberculin skin test; purified protein derivative solution, intradermal 1 1996 Unknown, Provider [id number] 96 Timbo (CON) complet ed tuberculi n skin test; purified protein derivativ e solution, intraderm al DoD Encounters Combined list of: 1) Encounters from Department of Veterans Affairs facilities going back up to thelast 18 months. 2) Encounters from the Department of Defense facilities going back up to 280 months. Location Location Details Encounter Type Encounter Number Reason For Visit Attending Provider ADM Date DC Date Status Disposition Source [facility]) TELE CONSULT [id number] Notes Entered by: Lucio CANELA 03 May 2016 1547 ------- ------- ------- ------- -- Network Results Con Leave Apr 22 TUYET VOSS 05/03 Referred for Appointment [facility]) OUTPATIENT [id number] [facility] MAUDE JUAREZ 08/21 Released w/o Limitations [facility]) Procedures Combined list of: 1) Procedures from Department of Veterans Affairs facilities going back up to thelast 18 months, not all VA non-surgical procedures are included; 2) All procedures from the Department of Defense facilities. Procedure Procedure Type Code Date Perfomer Comments Sourc e PSYCHIATRIC EVALUATION OF HOSPITAL RECORDS, OTHER PSYCHIATRIC REPORTS, PSYCHOMETRIC AND/OR PROJECTIVE TESTS, AND OTHER ACCUMULATED DATA FOR MEDICALDIAGNOSTIC PURPOSES 7 [facility] PSYCHIATRIC DIAGNOSTIC INTERVIEW EXAMINATION 7 [facility] BRIEF EMOTIONAL/BEHAVIORAL ASSESSMENT (EG, DEPRESSION INVENTORY, ATTENTION-DEFICIT/HYPE RACTIVITY DISORDER [ADHD] SCALE), WITH SCORING AND DOCUMENTATION, PER STANDARDIZED INSTRUMENT 0 [facility] FITTING OF SPECTACLES, EXCEPT FOR APHAKIA; MONOFOCAL 6 [facility] Psychiatric Diagnostic Evaluation Review of Records and Reports Psychiatric Diagnostic Evaluation Review of Records and Reports [id number] 7 NATE CAMARENA [facility] Psychiatric Diagnostic Evaluation Comprehensive Examination Psychiatric Diagnostic Evaluation Comprehensive Examination [id number] 7 RACHID CALLAWAY [facility] Preventive Medicine Administration Of Health Risk Questionnaire Patient-Focused Preventive Medicine Administration Of Health Risk Questionnaire Patient-Focused 05266 MAUDE JUAREZ [facility] Psychometric Emotional / Behavioral A e ment Psychometric Emotional / Behavioral Assessment 55111 MAUDE JUAREZ [facility] Social History Combined list of available smoking, tobacco, and other social history from Department of Defense and Veterans Affairs facilities. Social History Type Response Date Comment Sour e This section is an empty social history section. DoD
== END 2024-03-04 09:17 | disposition home or self-care (01) ==
PROVIDERS: PCP Internal Medicine; Visit Provider Internal Medicine
DX: Z00.00 Encounter for general adult medical examination without abnormal findings (principal); C20 Malignant neoplasm of rectum; K40.90 Unilateral inguinal hernia, without obstruction or gangrene, not specified as recurrent

== ENCOUNTER → 2024-03-04 08:58 | Outpatient (BNVA) | payer OTHER, SELFPAY | PROVIDERS: PCP Internal Medicine; Visit Provider Internal Medicine | DX: Z00.00 Encounter for general adult medical examination without abnormal findings (principal); C20 Malignant neoplasm of rectum; K40.90 Unilateral inguinal hernia, without obstruction or gangrene, not specified as recurrent | CPT/HCPCS: 96127; 99212 ==

== ENCOUNTER 2024-04-11 12:45 | Outpatient (REF) | payer OTHER, SELFPAY ==
--- OUTSIDE RECORDS SUMMARY | 2024-04-11 15:22 | XMS_ITS ---
[facility] Address [address] [place] [address] Care Team Providers Care Drive Tester Name Role Phone Monik SALVADOR, Bebe Primary Care Provider Unavail able Jerry Gloria Unavailable [phone] Allergies Allergen (clinical drug ingredient) Drug/Non Drug [...] an other tobacco user? No Vital Signs Blood pressure systolic 131 mm Hg 08/11/19 24 Blood pressure diastolic 85 mm Hg 024 Height 6ft in 08/11/2023 Weight 198 lbs 08/11/2023 BMI 26.85 kg/m2 08/11/2023 Encounters Encounter Location Date [facility] [address] [place] [address] 08/11/2023 Gloria Edwards Plantar fasciitis, bilateral M72.2 [...] Ulises ALVAREZ ADOB:[birth year] (53 yo M)Acc No.[id number]:08/11/2023 Progress Notes Patient:?Ulises Alvarez Provider:?Gloria Edwards DPM :1970???Age:53 Y???Sex:Male Derek e:08/11/2023 Address:[address] [place], [place] [id number] Pcp:Bebe Ruggiero MD Subjective: * Chief Complaints: [...] yes, walking, knitting. ?Marital status: . ?Occupation: [employer]. * Medications:?TakingPantopraz ole Sodium Rosuvastatin Calcium Taking [...] Interfil injection therapy, as well as surgical Rochelle/Endoscopic Fasciitomy surgical procedures if needed. Recommendations were [...] Edwards DPM Date:?06/2023 Generated for Elmira sparrow/Jose/eTransmitting on:?04/11/2024 03:22 PM EST History and Physical Notes * [...]
--- OUTSIDE RECORDS SUMMARY | 2024-04-11 15:23 | XMS_ITS ---
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 Generated for Elmira sparrow/Jose/eTransmitting on:?04/11/2024 03:22 PM EST
--- OUTSIDE RECORDS SUMMARY | 2024-04-11 15:23 | XMS_ITS | Patient Health Record ---
[facility] Address [address] [place] [address] Care Team Providers Care Experimental Technician Name Role Phone Bebe Ruggiero MD Primary Care Provider Unavail able Gloria Edwards Unavailable [phone] Allergies Allergen (clinical drug ingredient) Drug/Non Drug [...] Referring Provider Last Name Monik Referred Organization [facility] Referred Provider Gloria Edwards Referred Address [address],[place], [place],[address], Referred Provider Specialty Podiatry Referral Priority Routine [...] Problem Status W/U Status Risk Notes Problem [id number] Raynaud's disease without gangrene (I73.00) Active confirmed Vital Signs Blood pressure diastolic 85 mm Hg 08/11/2023 Height 6ft in 08/11/2023 Blood pressure systolic 131 mm Hg 08/11/2023 Weight 198 lbs 08/11/2023 BMI 26.85 kg/m2 08/11/2023 Encounters Encounter Location Date Provider Diagnosis [facility] [address] [address] 08/11/2023 Gloria Edwards Plantar fasciitis, bilateral M72.2 [facility] [address] [address] 06/22/2023 Gloria Edwards Assessments Encounter Date Diagnosis [...] Insured Coverage Start Date Coverage End Date [facility]ly [facility] [address] [place] [address] [id number] Ulises Alvarez Self - patient is the [...]
== END 2024-04-11 12:46 | disposition home or self-care (01) ==
LOC: HO.HMGCX 12:45
PROVIDERS: PCP Internal Medicine; Visit Provider Internal Medicine
DX: K40.90 Unilateral inguinal hernia, without obstruction or gangrene, not specified as recurrent (principal)
CPT/HCPCS: 76857

== ENCOUNTER → 2024-04-11 12:59 | Outpatient (BNV) | payer OTHER, SELFPAY | PROVIDERS: PCP Internal Medicine; Visit Provider Radiology Diagnostic Radiology | DX: K40.90 Unilateral inguinal hernia, without obstruction or gangrene, not specified as recurrent (principal) | CPT/HCPCS: 76857 ==

== ENCOUNTER 2024-04-12 06:26 | Day surgery (SDC) | payer OTHER, SELFPAY ==
[2024-04-10 09:17] VITALS: BMI 27.1
--- NOTE | 2024-04-11 09:35 | HO.ANESPROP2 ---
HPI - Anesthesia Eval Consult details Narrative: 53yo M for Sigmoidoscopy Flexible [place] [facility] [place], htn. Stable at 07/2023 office visit with 2 year f/u REPLACED BY [facility] Active Problems Active Problems: All Active Problems Left inguinal hernia (Acute) Back pain (Acute) HTN (hypertension) (Acute) Myalgia (Acute) Fever (Acute) Acute sinusitis (Acute) Viral sinusitis (Acute) Abnormal stress ECG (Acute) Encounter for screening colonoscopy (Acute) Rectal adenocarcinoma (Acute) Umbilical hernia (Acute) Physical exam (Acute) Foot pain (Acute) History of rectal cancer (Acute) History of rectal polypectomy (Acute) ARON on CPAP (Acute) Skin lesion (Acute) Hyperlipidemia (Acute) PVC (premature ventricular contraction) (Acute) GERD (gastroesophageal reflux disease) (Acute) Past Medical History Medical History (Updated 03/04/24 @ 09:21 by Bebe Olguin MD) Colon cancer Chest pain History of rectal cancer Rectal adenocarcinoma Actinic keratitis ARON on CPAP Skin lesion Hyperlipidemia PVC (premature ventricular contraction) GERD (gastroesophageal reflux disease) Family History Family History (Updated 03/04/24 @ 09:26 by Bebe Olguin MD) Father Prostate CA Mother Gastric cancer Cancer Brother Skin cancer Cancer of extraocular muscle Maternal Grandfather Throat cancer Lung cancer Paternal Uncle Throat cancer Lung cancer Paternal Aunt Gastric cancer Brother Melanoma Family history of problems with anesthesia: No Surgical History Surgical History History of colonoscopy with polypectomy (~10/13/23) History of flexible sigmoidoscopy (~04/21/23) History of colonoscopy (~2022) History of flexible sigmoidoscopy (03/04/22) Hx of umbilical hernia repair History of rectal polypectomy History of sigmoidoscopy Hx of colonoscopy History of hand surgery History of removal of cyst History of arthroscopy of right knee History of inguinal hernia repair History of Problems with Anesthesia: No Social History Social History Household Members: Spouse Housing: House Alcohol intake: current Alcohol intake frequency: a few times a week Alcohol type: beer and wine Patient Tobacco Use Status: Former Tobacco user Tobacco use type: Cigarette Years Smoked: 15 e-Cigarette/Vaping Use: Never Used Second Hand Smoke Exposure: No service: Yes ([facility]) Current occupational status: employed Current occupational exposures/hazards: No Cognitive needs: No Hearing needs: No Vision needs: Yes Meds Allergies Allergy/AdvReac Type Severity Reaction Status Date / Time Penicillins [PENICILLINS] Allergy Intermediate UNKNOWN Verified 03/04/24 09:07 REACTION-CHILDHOOD ALLERGY Exam Height,Weight and Vital Signs: Height 6 ft Weight 90.718 kg Assessment and Plan Assessment Anesthesia Assessment: Chart Reviewed Final Anesthetic Review Family History of Problems with Anesthesia: No History of Problems with Anesthesia: No
[2024-04-12 06:43] VITALS: BMI 27.7
[2024-04-12] MEDS: Lactated Ringers 1,000 ML 100 ML IVCONT (06:48)
[2024-04-12 06:54] VITALS: BP 140/87; PULSE 75; RESP 18; TEMP 36.6; O2SAT 97
--- NOTE | 2024-04-12 07:19 | MHC.SHP ---
Pre-Procedural Eval Section A - 24 Hr Update-Section A only Date of Service: 04/12/24 Section B - Complete if H&P > 30 days Chief Complaint: Personal history of other malignant neoplasm Details of Present Illness: History of a malignant rectal polyp, undergoes surveillance flexible sigmoidoscopy and colonoscopy,, no GI complaints Relevant Family History (Specify if Yes): No Relevant Social History: None Present Medications: see Short Stay Collaborative assessment Medical History: Significant History (Chronic back pain, hypertension, GERD, hyperlipidemia) Allergies: Allergies Allergy/AdvReac Type Severity Reaction Status Date / Time Penicillins [PENICILLINS] Allergy Intermediate UNKNOWN Verified 04/12/24 06:24 REACTION-CHILDHOOD ALLERGY Review of Systems Sugical H&P ROS: Negative: Constitution, Cardiovascular and Respiratory Exam Surgical H&P Exam: Normal: Heart, Normal: Lungs and Normal: Abdomen Plan Diagnosis/Plan: Unchanged I have reviewed the history and physical and performed a pertinent physical examination on my patient. No changes have occurred unless specified. Time Spent With Patient Time: Total time managing care of this patient today ____ minutes.
--- NOTE | 2024-04-12 07:50 | W.PM.OPN ---
Operative Note Operative Note Date of Service: 04/12/24 Narrative: Preop diagnosis: History of malignant rectal polyp Postop diagnosis: Normal flexible sigmoidoscopy findings Procedure: Flexible sigmoidoscopy to 35 cm Surgeon: Noe Hummel MD He is a 53-year-old male history of malignant rectal polyp removed endoscopically in 2020. The margins were negative at that time. He undergoes surveillance flexible sigmoidoscopy/colonoscopy every 6 months. He understood the technique of the planned procedure as well as the risks, benefits, and alternatives He was brought to the operating room. He was placed in left lateral decubitus position under monitored anesthesia care. A surgical time-out was done. A full digital rectal exam was done and there were no palpable anal lesions. The tip of the Olympus colonoscope was gently introduced through the anal orifice and advanced with insufflation to about 35 cm level. I then proceeded to withdraw the scope carefully with examination of the sigmoid mucosa and rectal mucosa being done with withdrawal The tattooed area at level 10 cm was seen. There was no lesion in this area. There were no polyps. There was no abnormal looking mucosa. I made multiple passes along this segment The rest of the distal rectum and anal canal were unremarkable. The scope was then withdrawn completely with desufflation He tolerated the procedure well. There were no immediate complications. I will see him in the office discuss findings. We will plan on another sigmoidoscopy versus colonoscopy in 6 months.
[2024-04-12 07:55] VITALS: BP 129/80; PULSE 80; RESP 16; TEMP 36.5; O2SAT 97
[2024-04-12 08:09] VITALS: BP 138/94; PULSE 80; RESP 18; TEMP 36.4; O2SAT 96
--- NOTE | 2024-04-12 08:34 | HO.ANESPROP2 ---
HPI - Anesthesia Eval Consult details Narrative: sigmoidoscopy [facility] Active Problems Active Problems: All Active Problems Left inguinal hernia (Acute) Back pain (Acute) HTN (hypertension) (Acute) Myalgia (Acute) Fever (Acute) Acute sinusitis (Acute) Viral sinusitis (Acute) Abnormal stress ECG (Acute) Encounter for screening colonoscopy (Acute) Rectal adenocarcinoma (Acute) Umbilical hernia (Acute) Physical exam (Acute) Foot pain (Acute) History of rectal cancer (Acute) History of rectal polypectomy (Acute) ARON on CPAP (Acute) Skin lesion (Acute) Hyperlipidemia (Acute) PVC (premature ventricular contraction) (Acute) GERD (gastroesophageal reflux disease) (Acute) Past Medical History Medical History Colon cancer Chest pain History of rectal cancer Rectal adenocarcinoma Actinic keratitis ARON on CPAP Skin lesion Hyperlipidemia PVC (premature ventricular contraction) GERD (gastroesophageal reflux disease) Family History Family History Father Prostate CA Mother Gastric cancer Cancer Brother Skin cancer Cancer of extraocular muscle Maternal Grandfather Throat cancer Lung cancer Paternal Uncle Throat cancer Lung cancer Paternal Aunt Gastric cancer Brother Melanoma Family history of problems with anesthesia: No Surgical History Surgical History History of colonoscopy with polypectomy (~10/13/23) History of flexible sigmoidoscopy (~04/21/23) History of colonoscopy (~2022) History of flexible sigmoidoscopy (03/04/22) Hx of umbilical hernia repair History of rectal polypectomy History of sigmoidoscopy Hx of colonoscopy History of hand surgery History of removal of cyst History of arthroscopy of right knee History of inguinal hernia repair History of Problems with Anesthesia: No Social History Social History Household Members: Spouse Housing: House Are you a primary manager wound care to a significant other at home: No Do you presently have visiting nurse or other home services: No Alcohol intake: current Alcohol intake frequency: a few times a week Alcohol type: beer and wine Patient Tobacco Use Status: Former Tobacco user Tobacco use type: Cigarette Years Smoked: 15 e-Cigarette/Vaping Use: Never Used Second Hand Smoke Exposure: No Have you been hit, kicked, punched, or otherwise hurt by someone within the past year? If so, by whom?: No Are you DNR?: No Advance Directives: No Advance Directives Information Provided: Yes Recently lost weight without trying: No Nutrition Risks: No Nutritional Risk service: Yes ([facility]) Current occupational status: employed Current occupational exposures/hazards: No Cognitive needs: No Hearing needs: No Vision needs: Yes Meds Allergies Allergy/AdvReac Type Severity Reaction Status Date / Time Penicillins [PENICILLINS] Allergy Intermediate UNKNOWN Verified 04/12/24 06:24 REACTION-CHILDHOOD ALLERGY Exam Height,Weight and Vital Signs: Height 6 ft Weight 92.8 kg Last Vital Signs Temp 97.5 F 04/12/24 08:09 Pulse 80 04/12/24 08:09 Resp 18 04/12/24 08:09 BP 138/94 H 04/12/24 08:09 Pulse Ox 96 04/12/24 08:09 O2 Del Method Room Air 04/12/24 08:09 Airway Mallampati Class: II TM Dist: >3cm Neck ROM: Full Heart: rrr Lungs: cta Assessment and Plan Assessment Anesthesia Assessment: Anesthesia Plan Discussed and Chart Reviewed Final Anesthetic Review Family History of Problems with Anesthesia: No History of Problems with Anesthesia: No NPO: Yes ASA Class: III Final Preanesthetic Review: No Changes in Pt Med Stat, Meds/Allgs Chart Reviewed, Consent Obtained/Reviewed and Anes Risks/Benef Reviewed Patient Risk: Intermediate Procedure Risk: Low Anesthetic Plan Anesthetic Plan: MAC: Disposition: Standard PACU
== END 2024-04-12 08:27 | disposition home or self-care (01) ==
PROVIDERS: PCP Internal Medicine; Visit Provider Surgery
PROC: 0DJD8ZZ Inspection of Lower Intestinal Tract, Via Natural or Artificial Opening Endoscopic (ICD-10-PCS; CPT 45330; principal; 2024-04-12 07:30)
DX: Z12.11 Encounter for screening for malignant neoplasm of colon (principal); Z85.048 Personal history of other malignant neoplasm of rectum, rectosigmoid junction, and anus; I10 Essential (primary) hypertension; I49.3 Ventricular premature depolarization; R07.9 Chest pain, unspecified; E78.5 Hyperlipidemia, unspecified; K21.9 Gastro-esophageal reflux disease without esophagitis; G89.29 Other chronic pain; M54.9 Dorsalgia, unspecified; M79.10 Myalgia, unspecified site; J01.90 Acute sinusitis, unspecified; H16.139 Photokeratitis, unspecified eye; G47.33 Obstructive sleep apnea (adult) (pediatric); Z99.89 Dependence on other enabling machines and devices; Z79.899 Other long term (current) drug therapy; Z88.0 Allergy status to penicillin; Z87.891 Personal history of nicotine dependence
CPT/HCPCS: 45330; J2003; J2704

== ENCOUNTER → 2024-04-12 06:26 | Outpatient (BNV) | payer OTHER, SELFPAY | PROVIDERS: PCP Internal Medicine; Visit Provider Surgery | DX: Z85.048 Personal history of other malignant neoplasm of rectum, rectosigmoid junction, and anus (principal) | CPT/HCPCS: 45330 ==

== ENCOUNTER 2024-05-15 13:05 | Outpatient (AMB) | payer OTHER, SELFPAY ==
--- NOTE | 2024-05-15 13:19 | MHC.OFFVIS ---
Vital Signs 05/15/24 13:20 Height 6 ft Weight 212 lb BMI 28.7 BP 152/66 H Blood Pressure Location Rt brachial Position Sitting Pulse 95 Intake Visit Reasons: post sigmoidoscopy Intake Note: Patient here s/p flexible sigmoidoscopy on 04-12-2024. Patient c/o: reports no concerns after procedure. Of note: Pelvic US 04-11-2024. Patient states LIH not bothersome. 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 He had undergone flexible sigmoidoscopy last month for a history of a malignant rectal polyp. I did not see any evidence of any recurrent lesion. He currently denies GI complaints He does state that he had an ultrasound recently and was diagnosed to have right inguinal hernia. He says that he had been having some vague low intensity pain on this right groin for several months. [facility] Medical History (Updated 05/15/24 @ 16:14 by Noe Hummel MD) Right inguinal hernia Colon cancer Chest pain History of rectal cancer Rectal adenocarcinoma Actinic keratitis ARON on CPAP Skin lesion Hyperlipidemia PVC (premature ventricular contraction) GERD (gastroesophageal reflux disease) Surgical History Hx of flexible sigmoidoscopy (~04/12/24) History of colonoscopy with polypectomy (~10/13/23) History of flexible sigmoidoscopy (~04/21/23) History of colonoscopy (~2022) History of flexible sigmoidoscopy (03/04/22) Hx of umbilical hernia repair History of rectal polypectomy History of sigmoidoscopy Hx of colonoscopy History of hand surgery History of removal of cyst History of arthroscopy of right knee History of inguinal hernia repair Family History Father Prostate CA Mother Gastric cancer Cancer Brother Skin cancer Cancer of extraocular muscle Maternal Grandfather Throat cancer Lung cancer Paternal Uncle Throat cancer Lung cancer Paternal Aunt Gastric cancer Brother Melanoma Social History Household Members: Spouse Housing: House Are you a primary animal care technician to a significant other at home: No Do you presently have visiting nurse or other home services: No Alcohol intake: current Alcohol intake frequency: a few times a week Alcohol type: beer and wine Patient Tobacco Use Status: Former Tobacco user Tobacco use type: Cigarette Years Smoked: 15 e-Cigarette/Vaping Use: Never Used Second Hand Smoke Exposure: No service: Yes ([facility]) Current occupational status: employed Current occupational exposures/hazards: No Cognitive needs: No Hearing needs: No Vision needs: Yes Review of Systems Const Denies chills and Denies fever(s) Card Denies chest pain, Denies dyspnea and Denies dyspnea on exertion Resp Denies cough, Denies dyspnea and Denies dyspnea on exertion GI Denies hematochezia and Denies change in bowel habits Denies hematuria and Denies difficulty urinating Musc Denies back pain and Denies limited range of motion Neuro Denies focal weakness and Denies convulsions Psych Denies depression and Denies mood swings Physical Exam Vital Signs: Last Vital Signs Pulse 95 05/15/24 13:20 BP 152/66 H 05/15/24 13:20 BMI result Body Mass Index 28.7 Const General: comfortable and no acute distress Orientation/consciousness: patient oriented x3 Neck Neck: Yes no lymphadenopathy Resp Auscultation: clear to auscultation bilaterally Cardio Rhythm: regular rhythm GI Other: Right inguinal hernia, palpable with Valsalva, reducible Palpation (GI): Soft to palpation, nontender and no guarding Neuro General: patient oriented x3 Assessment & Plan Assessment & Plan (1) History of rectal polypectomy: Code(s): Z98.890 - Other specified postprocedural states; Z87.19 - Personal history of other diseases of the digestive system Category: Surgical Plan: He had a malignant rectal polyp in 2021. The flexible sigmoidoscopy done last month did not suggest any recurrent lesion. I have recommended repeating the flexible sigmoidoscopy in about 6 months. He understands the technique of the planned procedure as well as the risks, benefits, and alternatives. (2) Right inguinal hernia: Code(s): K40.90 - Unilateral inguinal hernia, without obstruction or gangrene, not specified as recurrent Category: Medical Plan He has a reducible right inguinal hernia with some symptoms. I explained to him the technique of repair of the right inguinal hernia with possible mesh. I reviewed the risks including but not limited to bleeding, infections, injury to other organs including bowel, vas deferens, recurrence, postop pain, as well as the benefits and alternatives. I reviewed with him what to expect postoperatively He says he will let me know once he decides to proceed with right inguinal hernia repair. Coding Level of Care Code Est Pt Level 3 (68229) Diagnoses History of rectal polypectomy Z98.890; Z87.19 Right inguinal hernia K40.90
[2024-05-15 13:20] VITALS: BP 152/66; PULSE 95; BMI 28.7
--- OUTSIDE RECORDS SUMMARY | 2024-05-15 15:14 | XMS_ITS ---
[facility] Address [address] [place] [address] Care Team Providers Care Automation Engineer Name Role Phone Monik SALVADOR, Bebe Primary Care Provider Unavail able Gloria Edwards Unavailable [phone] Allergies Allergen (clinical drug ingredient) Drug/Non Drug [...] 024 Encounters Encounter Location Date [facility] [address] [place] [address] 08/11/2023 Gloria Edwards Plantar fasciitis, bilateral M72.2 [...] Ulises ALVAREZ ADOB:[birth year] (53 yo M)Acc No.[id number]:08/11/2023 Progress Notes Patient:?Ulises Alvarez Provider:?Gloria Edwards DPM :1970???Age:53 Y???Sex:Male Derek e:08/11/2023 Address:[address] [place], [place] [id number] Pcp:Bebe Ruggiero MD Subjective: * Chief Complaints: [...] yes, walking, knitting. ?Marital status: . ?Occupation: [employer]. * Medications:?TakingPantopraz ole Sodium Rosuvastatin Calcium Taking [...] Interfil injection therapy, as well as surgical [place]/Endoscopic Fasciitomy surgical procedures if needed. Recommendations were [...] Edwards DPM Date:?06/2023 Generated for [place] sparrow/Jose/eTransmitting on:?05/15/2024 03:14 PM EDT History and Physical Notes * HPI (History [...] no masses. The interspaces are clear Orthopedic FOOTWEAR EVALUATION: shoe gear p roperties exacerbate patients foot/toe deformity MUSCLE STRENGTH: 5/5 [...]
--- OUTSIDE RECORDS SUMMARY | 2024-05-15 15:14 | XMS_ITS | Patient Health Record ---
Author [facility] Address [address] [place] [address] Care Team Providers Care Pigs Feet Cleaner Name Role Phone Bebe Ruggiero MD Primary Care Provider Unavail able Gloria Edwards Unavailable [phone] Allergies Allergen (clinical drug ingredient) Drug/Non Drug [...] Referring Provider Last Name Monik Referred Organization [facility] Referred Provider Gloria Edwards Referred Address [address] [facility],[place], [place],[address], Referred Provider Specialty Podiatry Referral Priority Routine [...] Problem Status W/U Status Risk Notes Problem [id number] Raynaud's disease without gangrene (I73.00) Active confirmed Vital Signs Blood pressure diastolic 85 mm Hg 08/11/2023 Height 6ft in 08/11/2023 Blood pressure systolic 131 mm Hg 08/11/2023 Weight 198 lbs 08/11/2023 BMI 26.85 kg/m2 08/11/2023 Encounters Encounter Location Date Provider Diagnosis [facility] [address] 08/11/2023 Gloria Edwards Plantar fasciitis, bilateral M72.2 [facility] [address] [address] 06/22/2023 Gloria Edwards [facility] [address] 05/08/2024 Gloria Edwards Assessments Encounter Date Diagnosis (ICD [...] Insured Coverage Start Date Coverage End Date [facility] [place] [address] [id number] Ulises Alvarez Self - patient is the [...]
--- OUTSIDE RECORDS SUMMARY | 2024-05-15 15:15 | XMS_ITS ---
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 Generated for Milenai kyara/Jose/eTransmitting on:?05/15/2024 03:14 PM EDT
--- OUTSIDE RECORDS SUMMARY | 2024-05-15 15:15 | XMS_ITS ---
Author Organization [facility] Address [address] [place] [address] Care Team Providers Care Gold Plater Name Role Phone Monik SALVADOR, Bebe Primary Care Provider Unavail able Gloria Edwards Unavailable [phone] REASON FOR VISIT US Family Records Request Encounters Encounter Location Date Provider Diagnosis [facility] [address] [place] [address] 05/08/2024 Gloria Edwards Plan Of Treatment No Information Progress Notes * Ulises ALAVREZ ADOB:[birth year] (54 yo M)Acc No.[id number]:05/08/2024 Patient:?Ulises ALVAREZ :1970???Age:54 Y???Sex:Male Address:[address] [place] [address], [place], [address] * true * Date:? Generated for Printi kyara/Jose/eTransmitting on:?05/15/2024 03:14 PM EDT
== END 2024-05-15 13:43 | disposition home or self-care (01) ==
LOC: HO.HGS 13:08
PROVIDERS: PCP Internal Medicine; Visit Provider Surgery
DX: Z98.890 Other specified postprocedural states (principal); Z87.19 Personal history of other diseases of the digestive system; K40.90 Unilateral inguinal hernia, without obstruction or gangrene, not specified as recurrent
CPT/HCPCS: 99213

== ENCOUNTER → 2024-05-15 13:05 | Outpatient (BNVA) | payer OTHER, SELFPAY | PROVIDERS: PCP Internal Medicine; Visit Provider Surgery | DX: K40.90 Unilateral inguinal hernia, without obstruction or gangrene, not specified as recurrent (principal); Z98.890 Other specified postprocedural states; Z87.19 Personal history of other diseases of the digestive system | CPT/HCPCS: 99212 ==

== ENCOUNTER 2024-06-15 07:19 | Outpatient (REF) | payer OTHER, SELFPAY ==
[2024-06-15 09:59] LABS: Alanine Aminotransferase 67 U/L (0-40); Albumin Level 4.5 g/dL (3.5-5.0); Alkaline Phosphatase 73 U/L (39-117); Anion Gap 16 (12-20); Aspartate Amino Transferase 28 U/L (5-37); Bilirubin Total 0.6 mg/dL (0.0-1.0); Blood Urea Nitrogen 16 mg/dL (9-16); Calcium 9.5 mg/dL (8.4-10.2); Carbon Dioxide 25 mmol/L (22-29); Chloride 108 mmol/L (96-108); Cholesterol 174 mg/dL (<200); Estimated Glomerular Filt Rate > 60; Glucose Fasting 103 mg/dL (60-99); HDL Cholesterol 38 mg/dL (>40); LDL Cholesterol Calculated 95 mg/dL (<100); Potassium 4.5 mmol/L (3.3-5.1); Sodium 144 mmol/L (135-145); Total Protein 7.3 g/dL (6.5-8.0); Triglycerides 208 mg/dL (<150)
== END 2024-06-15 07:20 | disposition home or self-care (01) ==
LOC: HO.LAB 07:19
PROVIDERS: PCP Internal Medicine; Visit Provider Internal Medicine
DX: Z00.00 Encounter for general adult medical examination without abnormal findings (principal); E78.5 Hyperlipidemia, unspecified
CPT/HCPCS: 36415; 80053; 80061

== ENCOUNTER 2024-08-27 05:44 | Day surgery (SDC) | payer OTHER, SELFPAY ==
--- OUTSIDE RECORDS SUMMARY | 2024-07-12 09:10 | XMS_ITS | Continuity of Care Document ---
Author Name [facility] Organization [facility] Care Team Providers Care Field Trainer Name Role Phone [facility] Unavailable Unavailable Problems Combined list of problems from Department of Defense and Veterans Affairs facilities. It does not include entries that were removed or entered in error. Problem Status Onset Date Problem Type Date of Resolution Comments Source visit for: administrative purpose Inactive Condition DoD NO PSYCHIATRIC DIAGNOSIS OR CONDITION ON AXIS I Inactive Condition DoD visit for: occupational [...] PROCAINE) Drug allergy (disorder) Unknown active 05/21/2004 [facility] Immunizations Combined list of available immunizations from the Department of Defense and Veterans Affairs facilities. Immunization Series Date Given Administered By Site Reaction Lot Number CVX Code Drug Water Filterer Helper Status Comments Source SARS-COV-2 (COVID-19) vaccine, mRNA, spike protein, LNP, preservative free, 100 mcg or 50 mcg dose 3 2020 Unknown, Provider [id number] [employer]. (MOD) complet ed SARS-COV- 2 (COVID-19 ) vaccine, mRNA, spike protein, LNP, preservat thais free, 100 mcg or 50 mcg dose DoD SARS-COV-2 (COVID-19) vaccine, mRNA, spike protein, LNP, preservative free, 100 mcg or 50 mcg dose 2 2020 Unknown, Provider [id number] 207 [employer] (MOD) complet ed SARS-COV- 2 (COVID-19 ) vaccine, mRNA, spike protein, LNP, preservat thais free, 100 mcg or 50 mcg dose DoD SARS-COV-2 (COVID-19) vaccine, mRNA, spike protein, LNP, preservative free, 100 mcg or 50 mcg dose 1 2020 Unknown, Provider [id number] 207 [employer]. (MOD) complet ed SARS-COV- 2 (COVID-19 ) vaccine, mRNA, spike protein, LNP, preservat thais free, 100 mcg or 50 mcg dose DoD Influenza, injectable, quadrivalent, preservative free 0 2018 150 (MVX) complet ed Influenza , injectabl e, quadrival ent, preservat thais free DoD Influenza, seasonal, injectable 1 2017 [id number] Seqirus (SEQ) comple t ed Influenza , seasonal, injectabl e DoD Influenza, injectable, Madin Adriana Canine Kidney, preservative free, quadrivalent 0 2017 171 (MVX) complet ed Influenza , injectabl e, Madin Adriana Canine Kidney, preservat thais free, quadrival ent DoD tetanus toxoid, reduced diphtheria toxoid, and acellular pertu is vaccine, adsorbed 3 2017 [id number] 115 Sanofi Pasteur (PMC) complet ed tetanus toxoid, reduced diphtheri a toxoid, and acellular pertussis vaccine, adsorbed DoD Influenza, injectable, MDCK, preservative free, quadrivalent 2016 FOSTER, () Not Given Influenza , injectabl e, MDCK, preservat thais free, quadrival ent DoD influenza virus vaccine, unspecified formulation 1 2016 [id number] Seqirus (SEQ) comple t ed influenza virus vaccine, unspecifi ed formulati on DoD Influenza, injectable, MDCK, preservative free, quadrivalent 2015 DARIANA, () Not Given Influenza , injectabl e, MDCK, preservat thais free, quadrival ent DoD Influenza, seasonal, injectable, preservative free 1 2014 [id number] 140 [employer] (CSL) complet ed Influenza , seasonal, injectabl e, preservat thais free DoD Influenza, seasonal, injectable 1 2013 [id number] Transcribed (TRS) complet ed Influenza , seasonal, injectabl e DoD Influenza, seasonal, injectable 0 2012 141 (MVX) complet ed Influenza , seasonal, injectabl e DoD Influenza, seasonal, injectable 1 2011 [id number] 141 Sanofi Pasteur (PMC) complet ed Influenza , seasonal, injectabl e DoD Influenza, seasonal, injectable, preservative free 1 2010 140 Novartis Pharmaceutica l Prosper. (NOV) complet ed Influenza , seasonal, injectabl e, preservat thais free DoD influenza virus vaccine, split virus (incl. purified surface antigen)-reti red CODE 2 2009 [id number] 1 15 Novartis Pharm[employer] Prosper. (NOV) complet ed influenza virus vaccine, split virus (incl. purified surface antigen)- retired CODE DoD Novel influenza-H1N 1-09, injectable 1 2009 [id number] 127 Novartis [employer] Prosper. (NOV) complet ed Novel influenza -A8X2-76, injectabl e DoD influenza virus vaccine, live, attenuated, for intranasal use 1 2008 [id number] 111 [employer] Inc[employer] (MED) complet ed influenza virus vaccine, live, attenuate d, for intranasa l use [facility] typhoid Vi capsular polysaccharid e vaccine 1 2008 [id number] 101 Sanofi Pasteur ([facility]) complet ed typhoid Vi capsular polysacch aride vaccine DoD influenza virus vaccine, split virus (incl. purified surface antigen)-reti red CODE 1 2007 [id number] 15 [facility]) complet ed influenza virus vaccine, split virus (incl. purified surface antigen)- retired CODE DoD tetanus toxoid, reduced diphtheria toxoid, and acellular pertu is vaccine, adsorbed 1 2007 [id number] 115 Sanofi Pasteur ([facility]) complet ed tetanus toxoid, reduced diphtheri a toxoid, and acellular pertussis vaccine, adsorbed DoD influenza virus vaccine, split virus (incl. purified surface antigen)-reti red CODE 1 2006 [id number] 15 [employer] ([facility]) complet ed influenza virus vaccine, split virus (incl. purified surface antigen)- retired CODE DoD typhoid vaccine, parenteral, other than acetone-kille d, dried 1 2006 [id number] Sanofi Pasteur ([facility]) complet ed typhoid vaccine, parentera l, other than acetone-k illed, dried [facility] influenza virus vaccine, live, attenuated, for intranasal use 1 2005 [id number] 111 [employer] (MED) complet ed influenza virus vaccine, live, attenuate d, for intranasa l use DoD influenza virus vaccine, split virus (incl. purified surface antigen)-reti red CODE 1 2004 [id number] 15 Sanofi Pasteur ([facility]) complet ed influenza virus vaccine, split virus (incl. purified surface antigen)- retired CODE DoD typhoid vaccine, parenteral, other than acetone-kille d, dried 1 2004 [id number] Sanofi Pasteur ([facility]) complet ed typhoid vaccine, parentera l, other than acetone-k illed, dried DoD influenza virus vaccine, live, attenuated, for intranasal use 0 2004 [id number] 111 [employer] ([facility]) complet ed influenza virus vaccine, live, attenuate d, for intranasa l use DoD influenza virus vaccine, whole virus 0 2002 [id number] 16 Sanofi Pasteur ([facility]) complet ed influenza virus vaccine, whole virus DoD tuberculin skin test; purified protein derivative solution, intradermal 1 2002 Unknown, Provider [id number] 96 [facility] ([facility]) complet ed tuberculi n skin test; purified protein derivativ e solution, intraderm al DoD typhoid vaccine, parenteral, other than acetone-kille d, dried 0 2002 [id number] 41 Transcribed (TRS) complet ed typhoid vaccine, parentera l, other than acetone-k illed, dried DoD influenza virus vaccine, whole virus 0 2001 [id number] Transcribed (TRS) complet ed influenza virus vaccine, whole virus DoD influenza virus vaccine, whole virus 0 2001 [id number] 16 Sanofi Pasteur ([facility]) complet ed influenza virus vaccine, whole virus DoD tuberculin skin test; purified protein derivative solution, intradermal 1 2001 Unknown, Provider [id number] 96 Sanofi Pasteur ([facility]) complet ed tuberculi n skin test; purified protein derivativ e solution, intraderm al DoD influenza virus vaccine, whole virus 0 2000 [id number] 16 [employer] (Inactive) ([place]) complet ed influenza virus vaccine, whole virus DoD tuberculin skin test; purified protein derivative solution, intradermal 1 1999 Unknown, Provider [id number] 96 [facility] ([facility]) complet ed tuberculi n skin test; purified protein derivativ e solution, intraderm al DoD anthrax vaccine 5 1999 [id number] [facility] (MIP) complet ed anthrax vaccine DoD anthrax vaccine 4 1998 [id number] [employer] [place] (MIP) complet ed anthrax vaccine DoD influenza virus vaccine, whole virus 0 1998 [id number] 16 [employer] (CON) complet ed influenza virus vaccine, whole virus DoD tuberculin skin test; purified protein derivative solution, intradermal 1 1998 Unknown, Provider [id number] 96 Christos () complet ed tuberculi n skin test; purified protein derivativ e solution, intraderm al DoD anthrax vaccine 3 1998 [id number] [employer] [place] ([facility]) complet ed anthrax vaccine DoD anthrax vaccine 2 1998 [id number] [employer] [place] ([facility]) complet ed anthrax vaccine DoD anthrax vaccine 1 1998 [id number] [employer] [place] ([facility]) complet ed anthrax vaccine DoD hepatitis [...] DoD influenza virus vaccine, whole virus 0 [id number] 16 [employer] (Inactive) ([place]) complet ed influenza virus vaccine, whole virus [...] DoD meningococcal polysaccharid e vaccine (MPSV4) 0 [id number] [employer] (CON) complet ed meningoco ccal polysacch aride vaccine (MPSV4) DoD yellow fever vaccine 0 [id number] 37 [employer] (CON) complet ed yellow fever [...] DoD typhoid vaccine, live, oral 0 1996 [id number] 25 [employer] ([place]) complet ed typhoid vaccine, live, oral DoD tuberculin skin test; purified protein derivative solution, intradermal 1 1996 Unknown, Provider [id number] [employer] (CON) complet ed tuberculi n skin test; purified protein derivativ e solution, intraderm al DoD Encounters Combined list of: 1) Encounters from Department of Veterans Affairs facilities going backup to the last 18 months, not all VA inpatient encounters are included; 2) Encounters from the Department of Defense facilities going backup to 280 months. Location Location Details Encounter Type Encounter Number Reason For Visit Attending Provider ADM Date DC Date Status Disposition Source [facility]([place] [facility]) TELE CONSULT [id number] Notes Entered by: Lucio CANELA 03 May 2016 [id number] ------- ------- ------- ------- -- Network Results Con Leave Apr 22 TUYET VOSS 05/03 Referred for Appointment [facility]( [facility]) OUTPATIENT [id number] 4 [facility] # MAUDE JUAREZ 08/21 Released w/o Limitations [...] OTHER ACCUMULATED DATA FOR MEDICALDIAGNOSTIC PURPOSES 7 [facility] PSYCHIATRIC DIAGNOSTIC INTERVIEW EXAMINATION 7 [facility] BRIEF EMOTIONAL/BEHAVIORAL ASSESSMENT (EG, DEPRESSION INVENTORY, ATTENTION-DEFICIT/HYPER ACTIVITY DISORDER [ADHD] SCALE), WITH SCORING AND DOCUMENTATION, PER STANDARDIZED INSTRUMENT 0 [facility] TYPHOID VACCINE, CAPSULAR POLYSACCHARIDE (VICPS), FOR INTRAMUSCULAR USE 3 [facility] FITTING OF SPECTACLES, EXCEPT FOR APHAKIA; MONOFOCAL 6 [facility] Psychiatric Evaluation Review of Records and Reports Psychiatric Evaluation Review of Records and Reports [id number] NATE CAMARENA DoD Psychiatric Evaluation Comprehensive Examination Psychiatric Evaluation Comprehensive Examination [id number] 7 RACHID CALLAWAY [facility] Social History Combined list of available smoking, tobacco, and other social history from Department of Defense and Veterans Affairs facilities. Social History Type Response Date Comment Sourc e This section is an empty social history section. DoD
[2024-08-23 13:56] VITALS: BMI 28.7
--- NOTE | 2024-08-26 12:08 | HO.ANESPROP2 ---
HPI - Anesthesia Eval Consult details Narrative: 54 yr old male for right inguinal hernia with mesh. s/p flexible sigmoidoscopy 04/2024 with TIVA ARON on CPAP GERD: on PPI H/O PVCs: saw cards 07/20/23, asymptomatic PMFSH Active Problems Active Problems: All Active Problems Right inguinal hernia (Acute) Left inguinal hernia (Acute) Back pain (Acute) HTN (hypertension) (Acute) Myalgia (Acute) Fever (Acute) Acute sinusitis (Acute) Viral sinusitis (Acute) Abnormal stress ECG (Acute) Encounter for screening colonoscopy (Acute) Rectal adenocarcinoma (Acute) Umbilical hernia (Acute) Physical exam (Acute) Foot pain (Acute) History of rectal cancer (Acute) History of rectal polypectomy (Acute) ARON on CPAP (Acute) Skin lesion (Acute) Hyperlipidemia (Acute) PVC (premature ventricular contraction) (Acute) GERD (gastroesophageal reflux disease) (Acute) Past Medical History Medical History (Updated 05/15/24 @ 16:14 by Noe Hummel MD) Right inguinal hernia Colon cancer Chest pain History of rectal cancer Rectal adenocarcinoma Actinic keratitis ARON on CPAP Skin lesion Hyperlipidemia PVC (premature ventricular contraction) GERD (gastroesophageal reflux disease) Family History Family History Father Prostate CA Mother Gastric cancer Cancer Brother Skin cancer Cancer of extraocular muscle Maternal Grandfather Throat cancer Lung cancer Paternal Uncle Throat cancer Lung cancer Paternal Aunt Gastric cancer Brother Melanoma Family history of problems with anesthesia: No Surgical History Surgical History Hx of flexible sigmoidoscopy (~04/12/24) History of colonoscopy with polypectomy (~10/13/23) History of flexible sigmoidoscopy (~04/21/23) History of colonoscopy (~2022) History of flexible sigmoidoscopy (03/04/22) Hx of umbilical hernia repair History of rectal polypectomy History of sigmoidoscopy Hx of colonoscopy History of hand surgery History of removal of cyst History of arthroscopy of right knee History of inguinal hernia repair History of Problems with Anesthesia: No Social History Social History Household Members: Spouse Housing: House Are you a primary dog daycare provider to a significant other at home: No Do you presently have visiting nurse or other home services: No Alcohol intake: current Alcohol intake frequency: a few times a week Alcohol type: beer and wine Patient Tobacco Use Status: Former Tobacco user Tobacco use type: Cigarette Years Smoked: 15 e-Cigarette/Vaping Use: Never Used Second Hand Smoke Exposure: No service: Yes ([employer]) Current occupational status: employed Current occupational exposures/hazards: No Cognitive needs: No Hearing needs: No Vision needs: Yes Meds Allergies Allergy/AdvReac Type Severity Reaction Status Date / Time Penicillins (PENICILLINS) Allergy Intermediate UNKNOWN Verified 05/15/24 13:25 REACTION-CHILDHOOD ALLERGY Exam Height,Weight and Vital Signs: Height 6 ft Weight 96.162 kg Narrative Narrative: EKG 10/2023 NSR, rate 71 Assessment and Plan Final Anesthetic Review Family History of Problems with Anesthesia: No History of Problems with Anesthesia: No
[2024-08-27 06:12] VITALS: BMI 28.6
[2024-08-27 06:15] VITALS: BP 160/94; PULSE 71; RESP 18; TEMP 36.6; O2SAT 99
[2024-08-27] MEDS: Lactated Ringers 1,000 ML 100 ML IVCONT (06:18)
[2024-08-27 06:42] VITALS: BP 140/83
--- NOTE | 2024-08-27 07:13 | MHC.SHP ---
Pre-Procedural Eval Section A - 24 Hr Update-Section A only Date of Service: 08/27/24 Section B - Complete if H&P > 30 days Chief Complaint: Unilateral inguinal hernia, without obstruction or Details of Present Illness: Has had a reducible mass in the right groin consistent with a an inguinal hernia Relevant Family History (Specify if Yes): No Relevant Social History: None Present Medications: see Short Stay Collaborative assessment Medical History: Significant History (Malignant rectal polyp, hypertension, back pain, GERD) Allergies: Allergies Allergy/AdvReac Type Severity Reaction Status Date / Time Penicillins (PENICILLINS) Allergy Intermediate UNKNOWN Verified 08/27/24 06:15 REACTION-CHILDHOOD ALLERGY Review of Systems Sugical H&P ROS: Negative: Constitution, Cardiovascular and Gastrointestinal Exam Surgical H&P Exam: Normal: Heart and Normal: Lungs and Significant Findings: Abdomen (Right inguinal hernia reducible) Plan Diagnosis/Plan: Unchanged I have reviewed the history and physical and performed a pertinent physical examination on my patient. No changes have occurred unless specified. Time Spent With Patient Time: Total time managing care of this patient today ____ minutes.
--- NOTE | 2024-08-27 07:15 | HO.ANESPROP2 ---
[facility] Active Problems Active Problems: All Active Problems (Updated 05/15/24 @ 16:14 by Noe Hummel MD) Right inguinal hernia (Acute) Left inguinal hernia (Acute) Back pain (Acute) HTN (hypertension) (Acute) Myalgia (Acute) Fever (Acute) Acute sinusitis (Acute) Viral sinusitis (Acute) Abnormal stress ECG (Acute) Encounter for screening colonoscopy (Acute) Rectal adenocarcinoma (Acute) Umbilical hernia (Acute) Physical exam (Acute) Foot pain (Acute) History of rectal cancer (Acute) History of rectal polypectomy (Acute) ARON on CPAP (Acute) Skin lesion (Acute) Hyperlipidemia (Acute) PVC (premature ventricular contraction) (Acute) GERD (gastroesophageal reflux disease) (Acute) Past Medical History Medical History Right inguinal hernia Colon cancer Chest pain History of rectal cancer Rectal adenocarcinoma Actinic keratitis ARON on CPAP Skin lesion Hyperlipidemia PVC (premature ventricular contraction) GERD (gastroesophageal reflux disease) Family History Family History Father Prostate CA Mother Gastric cancer Cancer Brother Skin cancer Cancer of extraocular muscle Maternal Grandfather Throat cancer Lung cancer Paternal Uncle Throat cancer Lung cancer Paternal Aunt Gastric cancer Brother Melanoma Family history of problems with anesthesia: No Surgical History Surgical History Hx of flexible sigmoidoscopy (~04/12/24) History of colonoscopy with polypectomy (~10/13/23) History of flexible sigmoidoscopy (~04/21/23) History of colonoscopy (~2022) History of flexible sigmoidoscopy (03/04/22) Hx of umbilical hernia repair History of rectal polypectomy History of sigmoidoscopy Hx of colonoscopy History of hand surgery History of removal of cyst History of arthroscopy of right knee History of inguinal hernia repair History of Problems with Anesthesia: No Social History Social History Household Members: Spouse Housing: House Are you a primary care attendant to a significant other at home: No Do you presently have visiting nurse or other home services: No Alcohol intake: current Alcohol intake frequency: a few times a week Alcohol type: beer and wine Patient Tobacco Use Status: Former Tobacco user Tobacco use type: Cigarette Years Smoked: 15 e-Cigarette/Vaping Use: Never Used Second Hand Smoke Exposure: No Have you been hit, kicked, punched, or otherwise hurt by someone within the past year? If so, by whom?: No Are you DNR?: No Advance Directives: No Advance Directives Information Provided: Yes Poor oral hygiene: No service: Yes ([employer]) Current occupational status: employed Current occupational exposures/hazards: No Cognitive needs: No Hearing needs: No Vision needs: Yes Meds Allergies Allergy/AdvReac Type Severity Reaction Status Date / Time Penicillins (PENICILLINS) Allergy Intermediate UNKNOWN Verified 08/27/24 06:15 REACTION-CHILDHOOD ALLERGY Active Medications: Current Medications Lactated Ringer's (Lr) 1,000 mls @ 100 mls/hr IVCONT .Q10H ROSALINA Last Admin: 08/27/24 06:18 Dose: 100 mls/hr Exam Height,Weight and Vital Signs: Height 6 ft Weight 95.708 kg Last Vital Signs Temp 97.9 F 08/27/24 06:15 Pulse 71 08/27/24 06:15 Resp 18 08/27/24 06:15 BP 140/83 H 08/27/24 06:42 Pulse Ox 99 08/27/24 06:15 O2 Del Method Room Air 08/27/24 06:15 Airway Mallampati Class: III TM Dist: >3cm Neck ROM: Full Loose/Missing/Broken Teeth: No Heart: RRR Lungs: CTA Assessment and Plan Assessment Anesthesia Assessment: Anesthesia Plan Discussed and Chart Reviewed Final Anesthetic Review Family History of Problems with Anesthesia: No History of Problems with Anesthesia: No NPO: Yes ASA Class: III Final Preanesthetic Review: Meds/Allgs Chart Reviewed, Consent Obtained/Reviewed and Anes Risks/Benef Reviewed Patient Risk: Intermediate Procedure Risk: Low Anesthetic Plan Anesthetic Plan: GA Disposition: Standard PACU
--- NOTE | 2024-08-27 08:16 | W.PM.OPN ---
Operative Note Operative Note Date of Service: 08/27/24 Narrative: Preop diagnosis: Right inguinal hernia, reducible Postop diagnosis: Right inguinal hernia, reducible, indirect Procedure: Repair of right inguinal hernia with mesh Surgeon: Noe Hummel MD licensed loan officer assistant: RORO Brown The patient is a 54-year-old male with a reducible mass in the right groin consistent with a right inguinal hernia. He wanted to proceed with repair in view of her symptoms. He understood the technique of the planned procedure as well as the risks, benefits, and alternatives. He was brought to the operating room. He was placed supine under general anesthesia via laryngeal mask airway. The right groin was prepped and draped in the usual sterile fashion. A surgical time-out was done. The patient received cefazolin 2 g IV preoperatively. I infiltrated the planned line of incision with lidocaine 1%. I made a short incision in the skin along an imaginary line between the anterior superior iliac spine and the pubic ramus with a blade 15. This was carried down with electrocautery through the full-thickness of the skin and subcutaneous fat until the external oblique aponeurosis was visualized. I bluntly dissected the aponeurosis with gauze until was able to clearly define the external ring. I opened up the external oblique aponeurosis overlying the inguinal canal by making a short incision with a blade 15 and extended this inferomedially with a an open tip pair of scissors to connect with the external ring. I applied hemostasis on the divided edges of the external oblique aponeurosis. I bluntly dissected the underside of the aponeurosis to create space for the mesh Then bluntly dissected the spermatic cord and its contents with my index finger until was able to pass a Camille drain around this. This Camille drain was used for retraction. I identified the vas deferens and the accompanying vessels and these were protected throughout the dissection. There was note of a fat containing hernia which we bluntly dissected off of the rest of the cord contents until was able to completely reduce this through the internal ring. This was a small defect in the internal ring. I reinforced the internal ring with a Prolene plug. I secured the plug to the shelving edge of the inguinal meant laterally and the inferior oblique superiorly medially with Prolene 2 sutures using the inner leaves of the plug I reinforced the floor of the canal with a keyhole mesh. I secured the tails of the mesh around the cord at the level of the internal ring with Prolene 2 sutures. I secured the mesh to the floor of the canal with Prolene 2 sutures to the shelving edge of the inguinal meant laterally and the internal oblique superiorly as well immediately, and the pubic ramus inferomedially I observed for hemostasis. I irrigated and removed the was drained. Once hemostasis was confirmed, I reapposed the external oblique aponeurosis with a running Polysorb 2-0 stitch to re-create the external ring The subcutaneous layer was reapposed with Polysorb 3-0 simple interrupted sutures. Skin closure was achieved with Polysorb 4-0 subcuticular running stitch. The area was infiltrated with Marcaine 0.5% for postop analgesia. Dressings were applied. The procedure was completed The patient tolerated the procedure well. There were no immediate complications. Initial and final counts of sponges and instruments were correct. Estimated blood loss was less than 10 cc. The patient was extubated without difficulty and transferred to the recovery room with stable vital signs .
[2024-08-27 08:33] VITALS: BP 134/80; PULSE 76; RESP 18; TEMP 36.3; O2SAT 98
[2024-08-27 08:38] VITALS: BP 129/85; PULSE 66; RESP 14; O2SAT 97
[2024-08-27 08:43] VITALS: BP 130/90; PULSE 66; RESP 19; O2SAT 97
[2024-08-27 08:48] VITALS: BP 141/89; PULSE 63; RESP 14; TEMP 36.4; O2SAT 98
== END 2024-08-27 09:21 | disposition home or self-care (01) ==
PROVIDERS: PCP Internal Medicine; Visit Provider Surgery
PROC: (CPT 49505; principal; 2024-08-27 07:30)
DX: K40.90 Unilateral inguinal hernia, without obstruction or gangrene, not specified as recurrent (principal); M54.9 Dorsalgia, unspecified; I10 Essential (primary) hypertension; G47.33 Obstructive sleep apnea (adult) (pediatric); Z85.038 Personal history of other malignant neoplasm of large intestine; K21.9 Gastro-esophageal reflux disease without esophagitis; Z85.048 Personal history of other malignant neoplasm of rectum, rectosigmoid junction, and anus; Z79.899 Other long term (current) drug therapy; Z88.0 Allergy status to penicillin; Z87.891 Personal history of nicotine dependence; Z98.890 Other specified postprocedural states
CPT/HCPCS: 49505; C1781; J0131; J0690; J1100; J1885; J2003; J2250; J2405; J2704; J2795; J3010

== ENCOUNTER → 2024-08-27 05:44 | Outpatient (BNV) | payer OTHER, SELFPAY | PROVIDERS: PCP Internal Medicine; Visit Provider Surgery | DX: K40.90 Unilateral inguinal hernia, without obstruction or gangrene, not specified as recurrent (principal) | CPT/HCPCS: 49505 ==

== ENCOUNTER 2024-09-09 09:57 | Outpatient (AMB) | payer OTHER, SELFPAY ==
[2024-09-09 10:11] VITALS: BP 137/80; PULSE 78
--- NOTE | 2024-09-09 10:11 | MHC.OFFVIS ---
Vital Signs 09/09/24 10:11 Weight 206 lb BP 137/80 Blood Pressure Location Rt brachial Position Sitting Pulse 78 Intake Visit Reasons: S/P RIH w/mesh Intake Note: Patient here s/p repair of right inguinal hernia with mesh. Patient c/o: pain, tender to touch along rt groin area. Finished oxycodone. Metrology Manager Required: No Accompanied by: Self / Same As Patient Allergies Penicillins (PENICILLINS) Allergy (Intermediate, Verified 09/09/24 10:13) UNKNOWN REACTION-CHILDHOOD ALLERGY HPI Comments Details: Mr. Alvarez presents for routine follow up. He underwent repair of right inguinal hernia with mesh on 08/27/[address] Hummel. He reports difficulty with pain at the incision site and right testicle following the procedure and took all of his perocets. He then continued to take tylenol. He does report gradual improvement but reports the area and his lower groin/testicle still remains very sensitive to the touch. He also reports some bruising and swelling of the area which he reports has also improved. He is eating ok and moving his bowels normally. [facility] Medical History (Updated 09/09/24 @ 10:17 by ISABELL Guerin) Right inguinal hernia Right inguinal hernia Colon cancer Chest pain History of rectal cancer Rectal adenocarcinoma Actinic keratitis ARON on CPAP Skin lesion Hyperlipidemia PVC (premature ventricular contraction) GERD (gastroesophageal reflux disease) Surgical History (Updated 09/09/24 @ 11:41 by Jannie Brown PA-C) Hx of flexible sigmoidoscopy (~04/12/24) History of colonoscopy with polypectomy (~10/13/23) History of flexible sigmoidoscopy (~04/21/23) History of colonoscopy (~2022) History of flexible sigmoidoscopy (03/04/22) Hx of umbilical hernia repair History of rectal polypectomy History of sigmoidoscopy Hx of colonoscopy History of hand surgery History of removal of cyst History of arthroscopy of right knee History of inguinal hernia repair Family History Father Prostate CA Mother Gastric cancer Cancer Brother Skin cancer Cancer of extraocular muscle Maternal Grandfather Throat cancer Lung cancer Paternal Uncle Throat cancer Lung cancer Paternal Aunt Gastric cancer Brother Melanoma Social History Household Members: Spouse Housing: House Are you a primary rn care transition to a significant other at home: No Do you presently have visiting nurse or other home services: No Alcohol intake: current Alcohol intake frequency: a few times a week Alcohol type: beer and wine Patient Tobacco Use Status: Former Tobacco user Tobacco use type: Cigarette Years Smoked: 15 e-Cigarette/Vaping Use: Never Used Second Hand Smoke Exposure: No service: Yes ([facility]) Current occupational status: employed Current occupational exposures/hazards: No Cognitive needs: No Hearing needs: No Vision needs: Yes Review of Systems Const All systems reviewed & are unremarkable except as noted in HPI and below Physical Exam Vital Signs: Last Vital Signs Pulse 78 09/09/24 10:11 BP 137/80 09/09/24 10:11 Const General: comfortable, no acute distress and alert Orientation/consciousness: patient oriented x3 Resp Effort & Inspection: normal respiratory effort GI Other: right inguinal incision well healed, moderate induration and tenderness just superior to incision, no surrounding erythema or edema, no ecchymosis Inspection: No distended Palpation (GI): Soft to palpation and no guarding Skin General skin exam: no rashes or lesions noted Neuro General: patient oriented x3 and moves all extremities Assessment & Plan Assessment & Plan (1) S/P right inguinal hernia repair, follow-up exam: Code(s): Z09 - Encounter for follow-up examination after completed treatment for conditions other than malignant neoplasm Category: Surgical Plan 54 year old male who is 2 weeks s/p repair of right inguinal hernia with mesh with Dr. Hummel. He tolerated the procedure well. His incision site is well healed, he does have moderate induration on lateral aspect of incision. No evidence of infection or recurrence. Discussed with him induration is likely procedural related and will continue to improve. He may have some nerve irritation from the surgery as well and this may take longer to resolve. He is to return in 1 month for follow up to ensure continued wound healing, improved pain. He is comfortable with the plan. All questions answered. Coding Level of Care Code Global (60975) Diagnoses S/P right inguinal hernia repair, follow-up exam Z09
--- OUTSIDE RECORDS SUMMARY | 2024-09-09 10:35 | XMS_ITS | Continuity of Care Document ---
Author Name [facility] Organization [facility] Care Team Providers Care Human Resource Assistant Name Role Phone [facility] Unavailable Unavailable Problems Combined list of problems [...] PROCAINE) Drug allergy (disorder) Unknown active 05/21/2004 [facility] Immunizations Combined list of available immunizations from the Department of Defense and Veterans Affairs facilities. 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 (MOD) complet ed SARS-COV- 2 (COVID-19 ) vaccine, mRNA, spike protein, LNP, preservat thais free, 100 mcg or 50 mcg dose DoD SARS-COV-2 (COVID-19) vaccine, mRNA, spike protein, LNP, preservative free, 100 mcg or 50 mcg dose 2 2020 Unknown, Provider [id number] 207 Gendela [employer] (MOD) complet ed SARS-COV- 2 (COVID-19 ) vaccine, mRNA, spike protein, LNP, preservat thais free, 100 mcg or 50 mcg dose DoD SARS-COV-2 (COVID-19) vaccine, mRNA, spike protein, LNP, preservative free, 100 mcg or 50 mcg dose 1 2020 Unknown, Provider [id number] 207 [employer]. (MOD) complet ed SARS-COV- 2 (COVID-19 ) vaccine, mRNA, spike protein, LNP, preservat thais free, 100 mcg or 50 mcg dose DoD Influenza, injectable, quadrivalent, preservative free 0 2018 150 (MVX) complet ed Influenza , injectabl e, quadrival ent, preservat thais free DoD Influenza, seasonal, injectable 1 2017 [id number] Seqirus (SEQ) comple t ed Influenza , seasonal, injectabl e DoD Influenza, injectable, Madin Woodland Canine Kidney, preservative free, quadrivalent 0 2017 171 (MVX) complet ed Influenza , injectabl e, Madin Adriana Canine Kidney, preservat thais free, quadrival ent DoD tetanus toxoid, reduced diphtheria toxoid, and acellular pertu is vaccine, adsorbed 3 2017 [id number] Sanofi Pasteur (PMC) complet ed tetanus toxoid, reduced diphtheri a toxoid, and acellular pertussis vaccine, adsorbed DoD Influenza, injectable, MDCK, preservative free, quadrivalent 2016 FOSTER, () Not Given Influenza , injectabl e, MDCK, preservat thais free, quadrival ent DoD influenza virus vaccine, unspecified formulation 1 2016 [id number] Seqirus (SEQ) comple t ed influenza virus vaccine, unspecifi ed formulati on DoD Influenza, injectable, MDCK, preservative free, quadrivalent 2015 DARIANA, () Not Given Influenza , injectabl e, MDCK, preservat thais free, quadrival ent DoD Influenza, seasonal, injectable, preservative free 1 2014 [id number] 140 [employer]Net[employer] Inc. (CSL) complet ed Influenza , seasonal, injectabl e, preservat thais free DoD Influenza, seasonal, injectable 1 2013 [id number] Transcribed (TRS) complet ed Influenza , seasonal, injectabl e DoD Influenza, seasonal, injectable 0 2012 141 (MVX) complet ed Influenza , seasonal, injectabl e DoD Influenza, seasonal, injectable 1 2011 [id number] 141 Sanofi Pasteur (PMC) complet ed Influenza , seasonal, injectabl e DoD Influenza, seasonal, injectable, preservative free 1 2010 140 Novartis Pharmaceutica l Prosper. (NOV) complet ed Influenza , seasonal, injectabl e, preservat thais free DoD influenza virus vaccine, split virus (incl. purified surface antigen)-reti red CODE 2 2009 [id number] 1 15 Novartis Pharmaceutica l Prosper. (NOV) complet ed influenza virus vaccine, split virus (incl. purified surface antigen)- retired CODE DoD Novel influenza-H1N 1-09, injectable 1 2009 [id number] 1 127 Novartis Pharmaceutica l Prosper. (NOV) complet ed Novel influenza -R1V3-79, injectabl e DoD influenza virus vaccine, live, attenuated, for intranasal use 1 2008 [id number] 111 [employer] Inc. (MED) complet ed influenza virus vaccine, live, attenuate d, for intranasa l use [facility] typhoid Vi capsular polysaccharid e vaccine 1 2008 [id number] 101 Sanofi Pasteur ([facility]) complet ed typhoid Vi capsular polysacch aride vaccine DoD influenza virus vaccine, split virus (incl. purified surface antigen)-reti red CODE 1 [address] [id number] [address] [facility] ([facility]) complet ed influenza virus vaccine, split virus (incl. purified surface antigen)- retired CODE DoD tetanus toxoid, reduced diphtheria toxoid, and acellular pertu is vaccine, adsorbed 1 2007 [id number] 115 Sanofi Pasteur ([facility]) complet ed tetanus toxoid, reduced diphtheri a toxoid, and acellular pertussis vaccine, adsorbed DoD influenza virus vaccine, split virus (incl. purified surface antigen)-reti red CODE 1 2006 [id number] 15 [employer] ([facility]) complet ed influenza virus vaccine, split virus (incl. purified surface antigen)- retired CODE DoD typhoid vaccine, parenteral, other than acetone-kille d, dried 1 2006 [id number] 41 Sanofi Pasteur ([facility]) complet ed typhoid vaccine, parentera l, other than acetone-k illed, dried [facility] influenza virus vaccine, live, attenuated, for intranasal use 1 2005 [id number] 111 [employer]. (MED) complet ed influenza virus vaccine, live, attenuate d, for intranasa l use DoD influenza virus vaccine, split virus (incl. purified surface antigen)-reti red CODE 1 2004 [id number] 15 Sanofi Pasteur ([facility]) complet ed influenza virus vaccine, split virus (incl. purified surface antigen)- retired CODE DoD typhoid vaccine, parenteral, other than acetone-kille d, dried 1 2004 [id number] Sanofi Pasteur ([facility]) complet ed typhoid vaccine, parentera l, other than acetone-k illed, dried DoD influenza virus vaccine, live, attenuated, for intranasal use 0 2004 [id number] 111 [employer] ([facility]) complet ed influenza virus vaccine, live, attenuate d, for intranasa l use DoD influenza virus vaccine, whole virus 0 2002 [id number] 16 Sanofi Pasteur ([facility]) complet ed influenza virus vaccine, whole virus DoD tuberculin skin test; purified protein derivative solution, intradermal 1 2002 Unknown, Provider [id number] 96 [facility] ([facility]) complet ed tuberculi n skin test; purified protein derivativ e solution, intraderm al DoD typhoid vaccine, parenteral, other than acetone-kille d, dried 0 2002 UNK 41 Transcribed (TRS) complet ed typhoid vaccine, parentera l, other than acetone-k illed, dried DoD influenza virus vaccine, whole virus 0 2001 [id number] 16 Transcribed (TRS) complet ed influenza virus vaccine, whole virus DoD influenza virus vaccine, whole virus 0 2001 [id number] 16 Sanofi Pasteur ([facility]) complet ed influenza virus vaccine, whole virus DoD tuberculin skin test; purified protein derivative solution, intradermal 1 2001 Unknown, Provider [id number] 96 Sanofi Pasteur ([facility]) complet ed tuberculi n skin test; purified protein derivativ e solution, intraderm al DoD influenza virus vaccine, whole virus 0 2000 [id number] 16 Wyeth[employer]Ayerst (Inactive) ([place]) complet ed influenza virus vaccine, whole virus DoD tuberculin skin test; purified protein derivative solution, intradermal 1 1999 Unknown, Provider [id number] 96 [facility] ([facility]) complet ed tuberculi n skin test; purified protein derivativ e solution, intraderm al DoD anthrax vaccine 5 1999 [id number] [facility] (MIP) complet ed anthrax vaccine DoD anthrax vaccine 4 1998 [id number] [employer] [place] (MIP) complet ed anthrax vaccine DoD influenza virus vaccine, whole virus 0 1998 [id number] 16 Timbo (CON) complet ed influenza virus vaccine, whole virus DoD tuberculin skin test; purified protein derivative solution, intradermal 1 1998 Unknown, Provider [id number] Christos () complet ed tuberculi n skin test; purified protein derivativ e solution, intraderm al DoD anthrax vaccine 3 1998 [id number] [employer] [place] ([facility]) complet ed anthrax vaccine DoD anthrax vaccine 2 1998 [id number] 24 [employer] [place] ([facility]) complet ed anthrax vaccine DoD anthrax vaccine 1 1998 [id number] 24 [employer] [place] ([facility]) complet ed anthrax vaccine DoD hepatitis B [...] DoD influenza virus vaccine, whole virus 0 [id number] 16 Edel (Inactive) ([place]) complet ed influenza virus vaccine, whole virus [...] DoD meningococcal polysaccharid e vaccine (MPSV4) 0 [id number] 32 Timbo (CON) complet ed meningoco ccal polysacch aride vaccine (MPSV4) DoD yellow fever vaccine 0 [id number] 37 Timbo (CON) complet ed yellow fever [...] DoD typhoid vaccine, live, oral 0 1996 [id number] 25 [employer] ([place]) complet ed typhoid vaccine, live, oral DoD tuberculin skin test; purified protein derivative solution, intradermal 1 1996 Unknown, Provider [id number] Timbo (CON) complet ed tuberculi n [...] ADM Date DC Date Status Disposition Source [facility]) TELE CONSULT [id number] Notes Entered by: Lucio CANELA 03 May 2016 1547 ------- ------- ------- ------- -- Network Results Con Leave Apr 22 TUYET VOSS 05/03 [facility] for App[facility]ment [facility] OUTPATIENT [id number] 4 [facility] # MAUDE JUAREZ 08/21 Released w/o Limitations [facility]) Procedures Combined list of: 1) Procedures from Department of Veterans Affairs facilities going back up to thelast 18 months, not all VA non-surgical procedures are included; 2) All procedures from the Department of Defense facilities. Procedure Procedure Type Code Date Perfomer Comments Franky e TYPHOID VACCINE, CAPSULAR POLYSACCHARIDE (VICPS), FOR INTRAMUSCULAR USE 3 [facility] BRIEF EMOTIONAL/BEHAVIORAL ASSESSMENT (EG, DEPRESSION INVENTORY, ATTENTION-DEFICIT/HYPER ACTIVITY DISORDER [ADHD] SCALE), WITH SCORING AND DOCUMENTATION, PER STANDARDIZED INSTRUMENT 0 [facility] PSYCHIATRIC EVALUATION OF HOSPITAL RECORDS, OTHER PSYCHIATRIC REPORTS, PSYCHOMETRIC AND/OR PROJECTIVE TESTS, AND OTHER ACCUMULATED DATA FOR MEDICALDIAGNOSTIC PURPOSES 7 [facility] PSYCHIATRIC DIAGNOSTIC INTERVIEW EXAMINATION 7 DoD FITTING OF SPECTACLES, EXCEPT FOR APHAKIA; MONOFOCAL 6 [facility] Psychiatric Evaluation Review of Records and Reports Psychiatric Evaluation Review of Records and Reports 53031 7 NATE CAMARENA DoD Psychiatric Evaluation Comprehensive Examination Psychiatric Evaluation Comprehensive Examination 90295 7 RACHID CALLAWAY DoD Social History Combined list of available smoking, tobacco, and other social history from Department of Defense and Veterans Affairs facilities. Social History Type Response Date Comment Franky e This section is an empty social history section. DoD
--- OUTSIDE RECORDS SUMMARY | 2024-09-09 10:36 | XMS_ITS | Patient Health Record ---
Author Organization [facility] Address [address] [place] [address] Care Team Providers Care Grinder Operator External Tool Name Role Phone Bebe Ruggiero MD Primary Care Provider Unavail able Gloria Edwards Unavailable [phone] Allergies Allergen (clinical drug ingredient) Drug/Non Drug Allergy documented on EMR Reaction Allergy Type Onset Date Status Penicillin rash Drug Allergy Active Reason For Referral No Information Medications Medication SIG (Take, Route, Fr equency, [...] Nitro-Bid 2 % as directed Transder mal daily; Duration: as needed 04/18/2017 Unkno wn Social History Tobacco Use: Social History Observation [...] Problem Status W/U Status Risk Notes Problem Raynaud's disease without gangrene (I73.00) Active confirmed Encounters Encounter Location Date Provider Diagnosis [facility] [address] [place] [place] [address] 05/08/2024 Gloria Edwards Plan Of Treatment No Information Insurance Providers Payer Name Payer Address Payer Phone Subscriber Number Group Number Insured Name Patient Relationship to Insured Coverage Start Date Coverage End Date [facility] [address] [place] [address] [id number] Ulises Alvarez Self - patient is the [...]
--- OUTSIDE RECORDS SUMMARY | 2024-09-09 10:36 | XMS_ITS | Patient Health Record ---
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 Phone Chun (RETIRED) Temo SALVADOR Primary Care Provide r Loco Smith Jr Unavailable Allergies Allergen (clinical drug ingredient) Drug/Non Drug Allergy documented on EMR Reaction Allergy Type Onset Date Status Penicillin Unknown Drug Allergy Active Reason For Referral No Information Medications Medication SIG (Take, Route, Fr equency, Duration) Notes Start Date End Date Status Ibuprofen 800 MG 1 tablet with food o r milk as needed Orally prn Active Propranolol HCl 20 MG 1 tablet Orally Once a day Active Ranitidine HCl 150 MG 1 capsule at bedti me Orally Once a day Active Immunizations Vaccine Route Administration Date Status Comme nts Influenza Unknown 11/06/2016 Administered Social History Tobacco Use: Social History Observation Description Date Details (start date - stop date) Former Smoker NA - NA Tobacco Use/Smoking Question Answer Notes Patient is a former smoker How long has it been since you last smoked? > 10 years Alcohol Screen Question Answer Notes Did you have a drink contain ing alcohol in the past year? Yes How often did you have a dri nk containing alcohol in the past year? 2 to 3 times a week (3 points) How many drinks did you have on a typical day when you were drinking in the past year? 1 or 2 drinks (0 point) How often did you have 6 or more drinks on one occasion in the past year? Never (0 point) Points 3 Interpretation Negative Problems Problem Type SNOMED Code ICD Code Onset Dates Problem Status W/U Status Risk Notes Problem 511308442 Gastroesophageal reflux disease without esophagitis (K21.9) Active confirmed Plan Of Treatment Future Test Test Name Order Date UPPER GI ENDOSCOPY 07/14/2017 Insurance Providers Payer Name Payer Address Payer Phone Subscriber Number Group Number Insured Name Patient Relationship to Insured Coverage Start Date Coverage End Date [employer] [facility] (NEEDS REF and PA) FORMERLY [facility] CLAIMS [address] [place] [address] [id number] PAULINO RAMIREZ Self - patient is the insured Medical (General) History Medical History History ICD Code gastroesophageal reflux disease sleep apnea, CPAP migraines palpitations Surgical History Surgery Date(Month/Year) hernia repair 1972 HAND/LEFT 1985 KNEE RIGHT 2006,2015
== END 2024-09-09 10:23 | disposition home or self-care (01) ==
LOC: HO.HGS 09:58
PROVIDERS: PCP Internal Medicine; Visit Provider Physician Assistant Surgical
DX: Z09 Encounter for follow-up examination after completed treatment for conditions other than malignant neoplasm (principal)
CPT/HCPCS: 99024

== ENCOUNTER → 2024-09-09 09:57 | Outpatient (BNVA) | payer OTHER, SELFPAY | PROVIDERS: PCP Internal Medicine; Visit Provider Physician Assistant Surgical | DX: Z98.890 Other specified postprocedural states (principal) | CPT/HCPCS: 99212 ==

== ENCOUNTER 2024-09-13 07:21 | Outpatient (AMB) | payer OTHER, SELFPAY ==
--- OUTSIDE RECORDS SUMMARY | 2024-09-13 07:22 | XMS_ITS | Patient Health Record ---
Author Organization [facility] Address [address] [place] [address] Care Team Providers Care Maitre D' Name Role Phone Chun (RETIRED) Temo SALVADOR [...] Problem Status W/U Status Risk Notes Problem [id number] Gastroesophageal reflux disease without esophagitis (K21.9) Active confirmed Plan Of Treatment Future Test Test Name Order Date UPPER GI ENDOSCOPY 07/14/2017 Insurance Providers Payer Name Payer Address Payer Phone Subscriber Number Group Number Insured Name Patient Relationship to Insured Coverage Start Date Coverage End Date [employer] [facility] (NEEDS REF and PA) [facility]LY [facility] CLAIMS [address] [place] [address] [id number] PAULINO RAMIREZ Self - patient is the insured Medical (General) History Medical History History ICD Code gastroesophageal reflux disease sleep apnea, CPAP migraines palpitations Surgical History Surgery Date(Month/Year) hernia repair 1972 HAND/LEFT 1985 KNEE RIGHT 2006,2015
--- OUTSIDE RECORDS SUMMARY | 2024-09-13 07:22 | XMS_ITS | Patient Health Record ---
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 Name Role Phone Bebe Ruggiero MD Primary Care Provider Unavail able Gloria Edwards Unavailable [phone] Allergies Allergen (clinical drug ingredient) Drug/Non Drug [...] confirmed Encounters Encounter Location Date Provider Diagnosis [facility] [address] [place] [address] 05/08/2024 Gloria Edwards Plan Of Treatment No Information Insurance Providers Payer Name Payer Address Payer Phone Subscriber Number Group Number Insured Name Patient Relationship to Insured Coverage Start Date Coverage End Date [facility] [address] [place] [address] [id number] Ulises Alvarez Self - patient is the [...]
--- OUTSIDE RECORDS SUMMARY | 2024-09-13 07:22 | XMS_ITS | Continuity of Care Document ---
Author Name [facility] Organization [facility] Care Team Providers Care Journalism Teacher Name Role Phone [facility] Unavailable Unavailable Problems Combined list of problems [...] PROCAINE) Drug allergy (disorder) Unknown active 05/21/2004 [facility] Immunizations Combined list of available immunizations from the Department of Defense and Veterans Affairs facilities. 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 (MOD) complet ed SARS-COV- 2 (COVID-19 ) vaccine, mRNA, spike protein, LNP, preservat thais free, 100 mcg or 50 mcg dose DoD SARS-COV-2 (COVID-19) vaccine, mRNA, spike protein, LNP, preservative free, 100 mcg or 50 mcg dose 2 2020 Unknown, Provider [id number] 207 [employer] (MOD) complet ed SARS-COV- 2 (COVID-19 ) vaccine, mRNA, spike protein, LNP, preservat thais free, 100 mcg or 50 mcg dose DoD SARS-COV-2 (COVID-19) vaccine, mRNA, spike protein, LNP, preservative free, 100 mcg or 50 mcg dose 1 2020 Unknown, Provider [id number] 207 [employer]. (MOD) complet ed SARS-COV- 2 (COVID-19 ) vaccine, mRNA, spike protein, LNP, preservat thais free, 100 mcg or 50 mcg dose DoD Influenza, injectable, quadrivalent, preservative free 0 2018 150 (MVX) complet ed Influenza , injectabl e, quadrival ent, preservat thais free DoD Influenza, seasonal, injectable 1 2017 [id number] Seqirus (SEQ) comple t ed Influenza , seasonal, injectabl e DoD Influenza, injectable, Madin Pound Canine Kidney, preservative free, quadrivalent 0 2017 171 (MVX) complet ed Influenza , injectabl e, Madin Adriana Canine Kidney, preservat thais free, quadrival ent DoD tetanus toxoid, reduced diphtheria toxoid, and acellular pertu is vaccine, adsorbed 3 2017 [id number] 115 Sanofi Pasteur (PMC) complet ed tetanus toxoid, reduced diphtheri a toxoid, and acellular pertussis vaccine, adsorbed DoD Influenza, injectable, MDCK, preservative free, quadrivalent 2016 FOSTER, () Not Given Influenza , injectabl e, MDCK, preservat thais free, quadrival ent DoD influenza virus vaccine, unspecified formulation 1 2016 [id number] Seqirus (SEQ) comple t ed influenza virus vaccine, unspecifi ed formulati on DoD Influenza, injectable, MDCK, preservative free, quadrivalent 2015 DARIANA, () Not Given Influenza , injectabl e, MDCK, preservat thais free, quadrival ent DoD Influenza, seasonal, injectable, preservative free 1 2014 [id number] 140 Zoyi[employer] Inc. (CSL) complet ed Influenza , seasonal, injectabl e, preservat thais free DoD Influenza, seasonal, injectable 1 2013 [id number] Transcribed (TRS) complet ed Influenza , seasonal, injectabl e DoD Influenza, seasonal, injectable 0 2012 141 (MVX) complet ed Influenza , seasonal, injectabl e DoD Influenza, seasonal, injectable 1 2011 [id number] 141 Sanofi Pasteur (PMC) complet ed Influenza , seasonal, injectabl e DoD Influenza, seasonal, injectable, preservative free 1 2010 140 Novartis Pharmaceutica l Prosper. (NOV) complet ed Influenza , seasonal, injectabl e, preservat thais free DoD influenza virus vaccine, split virus (incl. purified surface antigen)-reti red CODE 2 2009 [id number] 1 15 Novartis Pharmaceutica l Prosper. (NOV) complet ed influenza virus vaccine, split virus (incl. purified surface antigen)- retired CODE DoD Novel influenza-H1N 1-09, injectable 1 2009 [id number] 127 Novartis Pharmaceutica l Prosper. (NOV) complet ed Novel influenza -P7H3-96, injectabl e DoD influenza virus vaccine, live, attenuated, for intranasal use 1 2008 [id number] 111 Elixr, Inc. (MED) complet ed influenza virus vaccine, live, attenuate d, for intranasa l use [facility] typhoid Vi capsular polysaccharid e vaccine 1 2008 [id number] 101 Sanofi Pasteur ([facility]) complet ed typhoid Vi capsular polysacch aride vaccine DoD influenza virus vaccine, split virus (incl. purified surface antigen)-reti red CODE 1 2007 [id number] 15 [facility] ([facility]) complet ed influenza virus vaccine, split virus (incl. purified surface antigen)- retired CODE DoD tetanus toxoid, reduced diphtheria toxoid, and acellular pertu is vaccine, adsorbed 1 2007 [id number] 115 Sanofi Pasteur ([facility]) complet ed tetanus toxoid, reduced diphtheri a toxoid, and acellular pertussis vaccine, adsorbed DoD influenza virus vaccine, split virus (incl. purified surface antigen)-reti red CODE 1 2006 [id number] 15 [employer] ([facility]) complet ed influenza virus vaccine, split virus (incl. purified surface antigen)- retired CODE DoD typhoid vaccine, parenteral, other than acetone-kille d, dried 1 2006 [id number] 41 Sanofi Pasteur ([facility]) complet ed typhoid vaccine, parentera l, other than acetone-k illed, dried [facility] influenza virus vaccine, live, attenuated, for intranasal use 1 2005 [id number] 111 Elixr, Inc. (MED) complet ed influenza virus vaccine, live, attenuate d, for intranasa l use DoD influenza virus vaccine, split virus (incl. purified surface antigen)-reti red CODE 1 2004 [id number] 15 Sanofi Pasteur ([facility]) complet ed influenza virus vaccine, split virus (incl. purified surface antigen)- retired CODE DoD typhoid vaccine, parenteral, other than acetone-kille d, dried 1 2004 [id number] 41 Sanofi Pasteur ([facility]) complet ed typhoid vaccine, parentera l, other than acetone-k illed, dried DoD influenza virus vaccine, live, attenuated, for intranasal use 0 2004 [id number] 111 [employer] ([facility]) complet ed influenza virus vaccine, live, attenuate d, for intranasa l use DoD influenza virus vaccine, whole virus 0 2002 [id number] 16 Sanofi Pasteur ([facility]) complet ed influenza virus vaccine, whole virus DoD tuberculin skin test; purified protein derivative solution, intradermal 1 2002 Unknown, Provider [id number] 96 [facility]) complet ed tuberculi n skin test; purified protein derivativ e solution, intraderm al DoD typhoid vaccine, parenteral, other than acetone-kille d, dried 0 2002 [id number] 41 Transcribed (TRS) complet ed typhoid vaccine, parentera l, other than acetone-k illed, dried DoD influenza virus vaccine, whole virus 0 2001 [id number] 16 Transcribed (TRS) complet ed influenza virus vaccine, whole virus DoD influenza virus vaccine, whole virus 0 2001 [id number] 16 Sanofi Pasteur ([facility]) complet ed influenza virus vaccine, whole virus DoD tuberculin skin test; purified protein derivative solution, intradermal 1 2001 Unknown, Provider [id number] 96 Sanofi Pasteur ([facility]) complet ed tuberculi n skin test; purified protein derivativ e solution, intraderm al DoD influenza virus vaccine, whole virus 0 2000 [id number] 16 [employer] (Inactive) ([place]) complet ed influenza virus vaccine, whole virus DoD tuberculin skin test; purified protein derivative solution, intradermal 1 1999 Unknown, Provider [id number] 96 [facility] ([facility]) complet ed tuberculi n skin test; purified protein derivativ e solution, intraderm al DoD anthrax vaccine 5 [id number] [facility] (MIP) complet ed anthrax vaccine DoD anthrax vaccine 4 1998 [id number] 24 [employer] [place] ([facility]IP) complet ed anthrax vaccine DoD influenza virus vaccine, whole virus 0 1998 [id number] 16 Timbo (CON) complet ed influenza virus vaccine, whole virus DoD tuberculin skin test; purified protein derivative solution, intradermal 1 1998 Unknown, Provider [id number] 96 Christos () complet ed tuberculi n skin test; purified protein derivativ e solution, intraderm al DoD anthrax vaccine 3 1998 [id number] 24 [employer] [place] ([facility]) complet ed anthrax vaccine DoD anthrax vaccine 2 1998 [id number] 24 [employer] [place] ([facility]) complet ed anthrax vaccine DoD anthrax vaccine 1 1998 [id number] 24 [employer] [place] ([facility]) complet ed anthrax vaccine DoD hepatitis B [...] DoD influenza virus vaccine, whole virus 0 [id number] 16 Edel (Inactive) ([place]) complet ed influenza virus vaccine, whole virus [...] DoD meningococcal polysaccharid e vaccine (MPSV4) 0 [id number] 32 Tim[employer] (CON) complet ed meningoco ccal polysacch aride vaccine (MPSV4) DoD yellow fever vaccine 0 [id number] 37 [employer] (CON) complet ed yellow fever [...] DoD typhoid vaccine, live, oral 0 1996 [id number] 25 [employer] [facility] ([place]) complet ed typhoid vaccine, live, oral DoD tuberculin skin test; purified protein derivative solution, intradermal 1 1996 Unknown, Provider [id number] Tim[employer] (CON) complet ed tuberculi n [...] ADM Date DC Date Status Disposition Source [facility]) TELE CONSULT [id number] Notes Entered by: Lucio CANELA 03 May 2016 1547 ------- ------- ------- ------- -- Network Results Con Leave Apr 22 TUYET VOSS 05/03 Referred for Appointment [facility] OUTPATIENT [id number] 4 [facility] MAUDE JUAREZ 08/21 Released w/o Limitations [facility]) Procedures Combined list of: 1) Procedures from Department of Veterans Affairs facilities going back up to thelast 18 months, not all VA non-surgical procedures are included; 2) All procedures from the Department of Defense facilities. Procedure Procedure Type Code Date Perfomer Comments Sourc e Psychiatric Evaluation Review of Records and Reports Psychiatric Evaluation Review of Records and Reports 21918 7 NATE CAMARENA DoD Psychiatric Evaluation Comprehensive Examination Psychiatric Evaluation Comprehensive Examination 41002 7 RACHID CALLAWAY [facility] BRIEF EMOTIONAL/BEHAVIORAL ASSESSMENT (EG, DEPRESSION INVENTORY, ATTENTION-DEFICIT/HYPER ACTIVITY DISORDER [ADHD] SCALE), WITH SCORING AND DOCUMENTATION, PER STANDARDIZED INSTRUMENT 0 [facility] PSYCHIATRIC EVALUATION OF HOSPITAL RECORDS, OTHER PSYCHIATRIC REPORTS, PSYCHOMETRIC AND/OR PROJECTIVE TESTS, AND OTHER ACCUMULATED DATA FOR MEDICALDIAGNOSTIC PURPOSES 7 [facility] PSYCHIATRIC DIAGNOSTIC INTERVIEW EXAMINATION 7 [facility] TYPHOID VACCINE, CAPSULAR POLYSACCHARIDE (VICPS), FOR INTRAMUSCULAR USE 3 DoD FITTING OF SPECTACLES, EXCEPT FOR APHAKIA; MONOFOCAL 6 DoD Social History Combined list of available smoking, tobacco, and other social history from Department of Defense and Veterans Affairs facilities. Social History Type Response Date Comment Sour e This section is an empty social history section. DoD
--- NOTE | 2024-09-13 08:03 | AM.OFFWIN_ITS ---
Intake Vital Signs 09/13/24 08:04 Height 6 ft Weight 206 lb BMI 27.9 BP 138/98 H Blood Pressure Location Lt brachial Position Sitting Pulse 74 Pulse Source Pulse Oximeter Temp 98.4 F Temp Source Oral Pulse Oximetry (%) 98 Oxygen Delivery Method Room Air Intake Visit Reasons: EP-cold symptoms Patient Tobacco Use Status: Former Tobacco user Inventory Technician Required: No Allergies Penicillins (PENICILLINS) Allergy (Intermediate, Verified 09/13/24 08:06) UNKNOWN REACTION-CHILDHOOD ALLERGY Do you need a note to return to daycare/school/sports/work: No HPI HPI Comments 2 History of Present Illness Details This is a 52-year-old male with a past medical history of recent right inguinal hernia repair, hyperlipidemia, hypertension and gastroesophageal reflux disease presenting for evaluation of cold symptoms that he has had since Monday. Patient states he has had headache and nasal congestion but denies having any fevers, chills, cough or shortness for breath. Patient has not taken any medication for treatment of his symptoms. Patient states that he took a test at home for both influenza and COVID which was negative. [facility] Medical History (Updated 09/13/24 @ 08:46 by Azucena Mariscal PA-C) Right inguinal hernia Right inguinal hernia Colon cancer Chest pain History of rectal cancer Rectal adenocarcinoma Actinic keratitis ARON on CPAP Skin lesion Hyperlipidemia PVC (premature ventricular contraction) GERD (gastroesophageal reflux disease) Surgical History (Updated 09/09/24 @ 11:41 by Jannie Brown PA-C) Hx of flexible sigmoidoscopy (~04/12/24) History of colonoscopy with polypectomy (~10/13/23) History of flexible sigmoidoscopy (~04/21/23) History of colonoscopy (~2022) History of flexible sigmoidoscopy (03/04/22) Hx of umbilical hernia repair History of rectal polypectomy History of sigmoidoscopy Hx of colonoscopy History of hand surgery History of removal of cyst History of arthroscopy of right knee History of inguinal hernia repair Family History Father Prostate CA Mother Gastric cancer Cancer Brother Skin cancer Cancer of extraocular muscle Maternal Grandfather Throat cancer Lung cancer Paternal Uncle Throat cancer Lung cancer Paternal Aunt Gastric cancer Brother Melanoma Social History Household Members: Spouse Housing: House Are you a primary hospice home care coordinator to a significant other at home: No Do you presently have visiting nurse or other home services: No Alcohol intake: current Alcohol intake frequency: a few times a week Alcohol type: beer and wine Patient Tobacco Use Status: Former Tobacco user Tobacco use type: Cigarette Years Smoked: 15 e-Cigarette/Vaping Use: Never Used Second Hand Smoke Exposure: No service: Yes ([facility]) Current occupational status: employed Current occupational exposures/hazards: No Cognitive needs: No Hearing needs: No Vision needs: Yes Review of Systems Const All systems reviewed & are unremarkable except as noted in HPI and below Denies chills, Reports fatigue and Denies fever(s) Eyes Reports no additional complaints ENT Reports no additional complaints, Denies facial pain, Denies hoarseness, Reports nasal congestion, Denies nasal discharge, Denies odynophagia and Denies sinus pressure Card Reports no additional complaints and Denies dyspnea Resp Reports no additional complaints, Denies cough and Denies dyspnea GI Denies odynophagia Reports no additional complaints Musc Reports no additional complaints Skin/Breast Reports system reviewed and no additional complaints, except as documented Neuro Reports no additional complaints Psych Reports no additional complaints Endo Reports no additional complaints and Reports fatigue Aller/Immun Reports no additional complaints Physical Exam Vital Signs: Last Vital Signs Temp 98.4 F 09/13/24 08:04 Pulse 74 09/13/24 08:04 BP 138/98 H 09/13/24 08:04 Pulse Ox 98 09/13/24 08:04 Oxygen Delivery Method Room Air 09/13/24 08:04 BMI result Body Mass Index 27.9 Patient is afebrile. Const General: cooperative, healthy appearing, comfortable, no acute distress, well developed, alert and awake Nutritional Appearance: well nourished Orientation/consciousness: patient oriented x3 HEENT Head: Yes normal to inspection and Yes normocephalic Ears: hearing grossly normal bilaterally, external ears normal, TM's normal bilaterally and EAC's normal General nose exam: Normal external nose present Face and sinus: Yes normal facial exam and Yes sinuses nontender Mouth: Normal oral and palatal mucosa present, oropharynx normal and moist mucous membranes Throat: Yes posterior oropharynx normal, Yes uvula midline and No postnasal drainage Eyes General: appearance normal, both eyes and all related structures Neck Lymphatic: no lymphadenopathy noted Resp Effort & Inspection: normal respiratory effort, no audible wheezes, no cough, not labored and no stridor Auscultation: clear to auscultation bilaterally Cardio Rate: regular rate Rhythm: regular rhythm Skin General skin exam: no rashes or lesions noted Neuro General: patient oriented x3 Psych Appearance: grossly normal Mental Status: mental status grossly normal Insight: Good insight present (Psych) Judgement: Good judgement present (Psych) Assessment & Plan Assessment & Plan (1) Acute upper respiratory infection: Comment: Patient is afebrile, well-appearing and in no acute distress. No further respiratory panel testing or imaging is warranted at this time. Code(s): J06.9 - Acute upper respiratory infection, unspecified Plan: Increased clear fluids daily, ibuprofen as needed, follow up with PCP only as needed, Mucinex OTC if cough develops. Coding Level of Care Code Est Pt Level 3 (94066) Diagnoses Acute upper respiratory infection J06.9 Time Spent (min) 20
[2024-09-13 08:04] VITALS: BP 138/98; PULSE 74; TEMP 36.9; O2SAT 98; BMI 27.9
== END 2024-09-13 08:52 | disposition home or self-care (01) ==
PROVIDERS: PCP Internal Medicine; Visit Provider Physician Assistant
DX: J06.9 Acute upper respiratory infection, unspecified (principal)

== ENCOUNTER → 2024-09-13 07:21 | Outpatient (BNVA) | payer OTHER, SELFPAY | PROVIDERS: PCP Internal Medicine; Visit Provider Physician Assistant | DX: I10 Essential (primary) hypertension (principal); J06.9 Acute upper respiratory infection, unspecified; R51.9 Headache, unspecified; E78.5 Hyperlipidemia, unspecified; K21.9 Gastro-esophageal reflux disease without esophagitis | CPT/HCPCS: 99212 ==

== ENCOUNTER 2024-10-10 13:24 | Outpatient (AMB) | payer OTHER, SELFPAY ==
--- NOTE | 2024-10-10 13:28 | A.OFFVIS_ITS ---
Vital Signs 10/10/24 13:35 Height 6 ft Weight 209 lb BMI 28.3 BP 120/80 Blood Pressure Location Lt brachial Position Sitting Pulse 82 Intake Visit Reasons: S/P RIH w/mesh Intake Note: Patient here s/p repair of right inguinal hernia with mesh. Patient c/o: no concerns. Reports incisions healed well. Denies diarrhea, constiptation. Food Safety Manager Required: No Accompanied by: Self / Same As Patient Allergies Penicillins (PENICILLINS) Allergy (Intermediate, Verified 10/10/24 13:35) UNKNOWN REACTION-CHILDHOOD ALLERGY HPI HPI S/P RIH w/mesh: Details: He is here for postop visit after his right inguinal hernia repair last 08/27/2024 He continues to feel well. He denies any significant complaints except for some numbness on the middle of the thigh. [facility] Medical History Right inguinal hernia Right inguinal hernia Colon cancer Chest pain History of rectal cancer Rectal adenocarcinoma Actinic keratitis ARON on CPAP Skin lesion Hyperlipidemia PVC (premature ventricular contraction) GERD (gastroesophageal reflux disease) Surgical History Hx of flexible sigmoidoscopy (~04/12/24) History of colonoscopy with polypectomy (~10/13/23) History of flexible sigmoidoscopy (~04/21/23) History of colonoscopy (~2022) History of flexible sigmoidoscopy (03/04/22) Hx of umbilical hernia repair History of rectal polypectomy History of sigmoidoscopy Hx of colonoscopy History of hand surgery History of removal of cyst History of arthroscopy of right knee History of inguinal hernia repair Family History Father Prostate CA Mother Gastric cancer Cancer Brother Skin cancer Cancer of extraocular muscle Maternal Grandfather Throat cancer Lung cancer Paternal Uncle Throat cancer Lung cancer Paternal Aunt Gastric cancer Brother Melanoma Social History Household Members: Spouse Housing: House Are you a primary home care chaplain to a significant other at home: No Do you presently have visiting nurse or other home services: No Alcohol intake: current Alcohol intake frequency: a few times a week Alcohol type: beer and wine Patient Tobacco Use Status: Former Tobacco user Tobacco use type: Cigarette Years Smoked: 15 e-Cigarette/Vaping Use: Never Used Second Hand Smoke Exposure: No service: Yes ([facility]) Current occupational status: employed Current occupational exposures/hazards: No Cognitive needs: No Hearing needs: No Vision needs: Yes Review of Systems Const Denies chills and Denies fever(s) Physical Exam Vital Signs: Last Vital Signs Pulse 82 10/10/24 13:35 BP 120/80 10/10/24 13:35 BMI result Body Mass Index 28.3 Const General: comfortable and no acute distress GI Other: Right inguinal hernia repair site is well healed, repair intact, no recurrence, no infection Assessment & Plan Assessment & Plan (1) Right inguinal hernia: Code(s): K40.90 - Unilateral inguinal hernia, without obstruction or gangrene, not specified as recurrent Category: Medical Plan: Status post repair with mesh. He is doing very well. The repair site is intact and is well healed. He has had to resume normal level of activities He is scheduled for his flexible sigmoidoscopy next month. Coding Level of Care Code Global (45898) Diagnoses Right inguinal hernia K40.90
[2024-10-10 13:35] VITALS: BP 120/80; PULSE 82; BMI 28.3
--- OUTSIDE RECORDS SUMMARY | 2024-10-10 14:42 | XMS_ITS | Patient Health Record ---
Author Organization [facility] Address [address] [facility] [place] [address] Care Team Providers Care Children'S Tutor Nursery Name Role Phone Bebe Ruggiero MD Primary Care Provider Unavail able Gloria Edwards Unavailable [phone] Allergies Allergen (clinical drug ingredient) Drug/Non Drug [...] W/U Status Risk Notes Problem Raynaud's disease ([id number]) Raynaud's disease without gangrene (I73.00) Active confirmed [facility]counters En[facility] [place] [address] [facility] [place] [address] 05/08/2024 Gloria Edwards Plan Of Treatment No Information Insurance Providers Payer Name Payer Address Payer Phone Subscriber Number Group Number Insured Name Patient Relationship to Insured Coverage Start Date Coverage End Date [facility] [address] [place] [address] [id number] Ulises Alvarez Self - patient is the [...]
--- OUTSIDE RECORDS SUMMARY | 2024-10-10 14:42 | XMS_ITS | Patient Health Record ---
Author Organization [facility] Address [address] [place] [address] Care Team Providers Care Nozzleman Name Role Phone Chun (RETIRED) Temo SALVADOR Primary Care Provide r Loco Smith Jr Unavailable [phone] Allergies Allergen (clinical drug ingredient) Drug/Non Drug [...] Problem Status W/U Status Risk Notes Problem [id number] Gastroesophageal reflux disease without esophagitis (K21.9) Active confirmed Plan Of Treatment Future Test Test Name Order Date UPPER GI ENDOSCOPY 07/14/2017 Insurance Providers Payer Name Payer Address Payer Phone Subscriber Number Group Number Insured Name Patient Relationship to Insured Coverage Start Date Coverage End Date [facility] (NEEDS REF and PA) [facility] CLAIMS [address] [place] [address] [id number] PAULINO RAMIREZ Self - patient is the insured Medical (General) History Medical History History ICD Code gastroesophageal reflux disease sleep apnea, CPAP migraines palpitations Surgical History Surgery Date(Month/Year) hernia repair 1972 HAND/LEFT 1985 KNEE RIGHT 2006,2015
== END 2024-10-10 13:49 | disposition home or self-care (01) ==
LOC: HO.HGS 13:25
PROVIDERS: PCP Internal Medicine; Visit Provider Surgery
DX: K40.90 Unilateral inguinal hernia, without obstruction or gangrene, not specified as recurrent (principal)
CPT/HCPCS: 99024

== ENCOUNTER → 2024-10-10 13:24 | Outpatient (BNVA) | payer OTHER, SELFPAY | PROVIDERS: PCP Internal Medicine; Visit Provider Surgery | DX: K40.90 Unilateral inguinal hernia, without obstruction or gangrene, not specified as recurrent (principal) | CPT/HCPCS: 99212 ==

== ENCOUNTER 2024-11-08 06:17 | Day surgery (SDC) | payer OTHER, SELFPAY ==
--- OUTSIDE RECORDS SUMMARY | 2024-09-27 07:42 | XMS_ITS | Patient Health Record ---
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 Name Role Phone Bebe Ruggiero MD Primary Care Provider Unavail able Gloria Edwards Unavailable [phone] Allergies Allergen (clinical drug ingredient) Drug/Non Drug [...] confirmed Encounters Encounter Location Date Provider Diagnosis [facility] [address] [facility] [place] [address] 05/08/2024 Gloria Edwards Plan Of Treatment No Information Insurance Providers Payer Name Payer Address Payer Phone Subscriber Number Group Number Insured Name Patient Relationship to Insured Coverage Start Date Coverage End Date [facility] [address] [place] [address] [id number] Ulises Alvarez Self - patient is the [...]
--- OUTSIDE RECORDS SUMMARY | 2024-09-27 07:42 | XMS_ITS | Patient Health Record ---
Author Organization [facility] Address [address] [place] [address] Care Team Providers Care Rpg Programmer Analyst Name Role Phone Chun (RETIRED) Temo SALVADOR Primary Care Provide r Loco Smith Jr Unavailable [phone] Allergies Allergen (clinical drug ingredient) Drug/Non Drug [...] Problem Status W/U Status Risk Notes Problem [id number] Gastroesophageal reflux disease without esophagitis (K21.9) Active confirmed Plan Of Treatment Future Test Test Name Order Date UPPER GI ENDOSCOPY 07/14/2017 Insurance Providers Payer Name Payer Address Payer Phone Subscriber Number Group Number Insured Name Patient Relationship to Insured Coverage Start Date Coverage End Date [facility] (NEEDS REF and PA) [facility] CLAIMS [address] [place] [address] [id number] PAULINO RAMIREZ Self - patient is the insured Medical (General) History Medical History History ICD Code gastroesophageal reflux disease sleep apnea, CPAP migraines palpitations Surgical History Surgery Date(Month/Year) hernia repair 1972 HAND/LEFT 1985 KNEE RIGHT 2006,2015
[2024-11-06 10:41] VITALS: BMI 28.3
--- NOTE | 2024-11-06 14:17 | HO.ANESPROP2 ---
Documented by User: Veronique Rivas NP 11/06/24 14:21 HPI - Anesthesia Eval Consult details Narrative: 54yo M for Sigmoidoscopy Flexible s/p right inguinal hernia with mesh 08/2024 with GA-LMA 4 s/p flexible sigmoidoscopy 04/2024 with TIVA ARON on CPAP GERD: on PPI H/O PVCs: saw cards 07/20/23, asymptomatic PMFSH Active Problems Active Problems: All Active Problems Acute upper respiratory infection (Acute) S/P right inguinal hernia repair, follow-up exam (Acute) Left inguinal hernia (Acute) Back pain (Acute) HTN (hypertension) (Acute) Myalgia (Acute) Fever (Acute) Acute sinusitis (Acute) Viral sinusitis (Acute) Foot pain (Acute) Physical exam (Acute) Umbilical hernia (Acute) Rectal adenocarcinoma (Acute) Encounter for screening colonoscopy (Acute) Abnormal stress ECG (Acute) Right inguinal hernia (Acute) History of rectal cancer (Acute) History of rectal polypectomy (Acute) ARON on CPAP (Acute) Skin lesion (Acute) Hyperlipidemia (Acute) PVC (premature ventricular contraction) (Acute) GERD (gastroesophageal reflux disease) (Acute) Past Medical History Medical History Right inguinal hernia Right inguinal hernia Colon cancer Chest pain History of rectal cancer Rectal adenocarcinoma Actinic keratitis ARON on CPAP Skin lesion Hyperlipidemia PVC (premature ventricular contraction) GERD (gastroesophageal reflux disease) Family History Family History Father Prostate CA Mother Gastric cancer Cancer Brother Skin cancer Cancer of extraocular muscle Maternal Grandfather Throat cancer Lung cancer Paternal Uncle Throat cancer Lung cancer Paternal Aunt Gastric cancer Brother Melanoma Family history of problems with anesthesia: No Surgical History Surgical History Hx of right inguinal hernia repair (08/27/24) Hx of flexible sigmoidoscopy (~04/12/24) History of colonoscopy with polypectomy (~10/13/23) History of flexible sigmoidoscopy (~04/21/23) History of colonoscopy (~2022) History of flexible sigmoidoscopy (03/04/22) Hx of umbilical hernia repair History of rectal polypectomy History of sigmoidoscopy Hx of colonoscopy History of hand surgery History of removal of cyst History of arthroscopy of right knee History of inguinal hernia repair History of Problems with Anesthesia: No Social History Social History Household Members: Spouse Housing: House Are you a primary patient care associate to a significant other at home: No Do you presently have visiting nurse or other home services: No Alcohol intake: current Alcohol intake frequency: holidays/special occasions only Alcohol type: beer and wine Patient Tobacco Use Status: Former Tobacco user Tobacco use type: Cigarette Years Smoked: 15 e-Cigarette/Vaping Use: Never Used Second Hand Smoke Exposure: No Use of substances other than those prescribed or required for medical reasons: No Have you been hit, kicked, punched, or otherwise hurt by someone within the past year? If so, by whom?: No Are you DNR?: No Advance Directives: No Advance Directives Information Provided: Yes Advance Directives on File: No Poor oral hygiene: No service: Yes [facility] Current occupational status: employed Current occupational exposures/hazards: No Cognitive needs: No Hearing needs: No Vision needs: Yes Meds Allergies Allergy/AdvReac Type Severity Reaction Status Date / Time Penicillins (PENICILLINS) Allergy Intermediate UNKNOWN Verified 10/10/24 13:35 REACTION-CHILDHOOD ALLERGY Exam Height,Weight and Vital Signs: Height 6 ft Weight 94.801 kg Pertinent Lab Results Pertinent Lab Results: Laboratory Tests 06/15/24 07:24 Sodium 144 Potassium 4.5 Chloride 108 Carbon Dioxide 25 BUN 16 Creatinine 1.09 Assessment and Plan Assessment Anesthesia Assessment: Chart Reviewed Final Anesthetic Review Family History of Problems with Anesthesia: No History of Problems with Anesthesia: No Documented by User: Cody Lanier MD 11/08/24 07:28 [facility] Past Medical History Medical History Right inguinal hernia Right inguinal hernia Colon cancer Chest pain History of rectal cancer Rectal adenocarcinoma Actinic keratitis ARON on CPAP Skin lesion Hyperlipidemia PVC (premature ventricular contraction) GERD (gastroesophageal reflux disease) Functional capacity: independent ambulation Family History Family History Father Prostate CA Mother Gastric cancer Cancer Brother Skin cancer Cancer of extraocular muscle Maternal Grandfather Throat cancer Lung cancer Paternal Uncle Throat cancer Lung cancer Paternal Aunt Gastric cancer Brother Melanoma Surgical History Surgical History Hx of right inguinal hernia repair (08/27/24) Hx of flexible sigmoidoscopy (~04/12/24) History of colonoscopy with polypectomy (~10/13/23) History of flexible sigmoidoscopy (~04/21/23) History of colonoscopy (~2022) History of flexible sigmoidoscopy (03/04/22) Hx of umbilical hernia repair History of rectal polypectomy History of sigmoidoscopy Hx of colonoscopy History of hand surgery History of removal of cyst History of arthroscopy of right knee History of inguinal hernia repair Social History Social History Household Members: Spouse Housing: House Are you a primary patient care associate to a significant other at home: No Do you presently have visiting nurse or other home services: No Alcohol intake: current Alcohol intake frequency: holidays/special occasions only Alcohol type: beer and wine Patient Tobacco Use Status: Former Tobacco user Tobacco use type: Cigarette Years Smoked: 15 e-Cigarette/Vaping Use: Never Used Second Hand Smoke Exposure: No Use of substances other than those prescribed or required for medical reasons: No Have you been hit, kicked, punched, or otherwise hurt by someone within the past year? If so, by whom?: No Are you DNR?: No Advance Directives: No Advance Directives Information Provided: Yes Advance Directives on File: No Poor oral hygiene: No service: Yes ([facility]) Current occupational status: employed Current occupational exposures/hazards: No Cognitive needs: No Hearing needs: No Vision needs: Yes Meds Allergies Allergy/AdvReac Type Severity Reaction Status Date / Time Penicillins (PENICILLINS) Allergy Intermediate UNKNOWN Verified 10/10/24 13:35 REACTION-CHILDHOOD ALLERGY Exam Exam Date and Time: 11/08/24 Airway Mallampati Class: II TM Dist: >3cm Neck ROM: Full Heart: rrr Lungs: cta Other: normal Assessment and Plan Final Anesthetic Review NPO: Yes ASA Class: II Final Preanesthetic Review: No Changes in Pt Med Stat, Meds/Allgs Chart Reviewed, Consent Obtained/Reviewed and Anes Risks/Benef Reviewed Patient Risk: Low Procedure Risk: Low Anesthetic Plan Anesthetic Plan: MAC: Disposition: Standard PACU
[2024-11-08 06:39] VITALS: BP 154/95; PULSE 87; RESP 16; TEMP 37.3; O2SAT 95
[2024-11-08] MEDS: Lactated Ringers 1,000 ML 100 ML IVCONT (06:43)
--- NOTE | 2024-11-08 07:19 | MHC.SHP ---
Pre-Procedural Eval Section A - 24 Hr Update-Section A only Date of Service: 11/08/24 Section B - Complete if H&P > 30 days Chief Complaint: Personal history of other diseases of the digestiv Details of Present Illness: He has a history of a malignant rectal polyp removed in 2021 and he is here for surveillance flexible sigmoidoscopy Relevant Family History (Specify if Yes): No Relevant Social History: None Present Medications: see Short Stay Collaborative assessment Medical History: Significant History (History of malignant rectal polyp hypertension sleep apnea GERD hyperlipidemia) Allergies: Allergies Allergy/AdvReac Type Severity Reaction Status Date / Time Penicillins (PENICILLINS) Allergy Intermediate UNKNOWN Verified 10/10/24 13:35 REACTION-CHILDHOOD ALLERGY Review of Systems Sugical H&P ROS: Negative: Constitution, Cardiovascular and Respiratory Plan Diagnosis/Plan: Unchanged I have reviewed the history and physical and performed a pertinent physical examination on my patient. No changes have occurred unless specified. Time Spent With Patient Time: Total time managing care of this patient today ____ minutes.
[2024-11-08 07:53] VITALS: BP 115/73; PULSE 74; RESP 16; TEMP 36.5; O2SAT 100
--- NOTE | 2024-11-08 07:58 | W.PM.OPN ---
Operative Note Operative Note Date of Service: 11/08/24 Narrative: Preop diagnosis: History of malignant rectal polyp Postop diagnosis: normal flexible sigmoidoscopy findings Procedure: Flexible sigmoidoscopy Surgeon: Noe Hummel MD The patient is a 54-year-old male with a history of a rectal polyp removed endoscopically in 2021. He is here for surveillance sigmoidoscopy. He understands the technique of the planned procedure as was the risks, benefits, and alternatives He was brought to the operating room placed in left lateral decubitus position under monitored anesthesia care. A surgical time-out was done We will digital rectal exam was done. There were no palpable anal lesions. The tip of the Olympus colonoscope was gently introduced through the anal orifice advanced with insufflation all the way to level 30 cm. We then proceeded to withdraw the scope slowly, with careful examination of the distal sigmoid and rectal mucosa being done with scope withdrawal. There were no significant stools from the sigmoid distally. We made multiple passes in the rectum and there were no lesions seen. I did not see any polyp or any induration or any suspicious finding The anal canal in the anal canal were unremarkable. The scope was then withdrawn completely with desufflation The patient tolerated procedure well. There were no immediate complications I will see the patient the office to be removed the above. We will repeat surveillance in 6 months.
[2024-11-08 08:08] VITALS: BP 115/73; PULSE 82; RESP 16; TEMP 36.2; O2SAT 95
== END 2024-11-08 08:22 | disposition home or self-care (01) ==
PROVIDERS: PCP Internal Medicine; Visit Provider Surgery
PROC: 0DJD8ZZ Inspection of Lower Intestinal Tract, Via Natural or Artificial Opening Endoscopic (ICD-10-PCS; CPT 45330; principal; 2024-11-08 07:30)
DX: Z85.048 Personal history of other malignant neoplasm of rectum, rectosigmoid junction, and anus (principal); G47.33 Obstructive sleep apnea (adult) (pediatric); Z99.89 Dependence on other enabling machines and devices; Z88.0 Allergy status to penicillin
CPT/HCPCS: 45330; J2003; J2704; J3010

== ENCOUNTER → 2024-11-08 06:17 | Outpatient (BNV) | payer OTHER, SELFPAY | PROVIDERS: PCP Internal Medicine; Visit Provider Surgery | DX: Z12.11 Encounter for screening for malignant neoplasm of colon (principal); Z86.0100 Personal history of colon polyps, unspecified | CPT/HCPCS: 45330 ==

== ENCOUNTER 2024-11-21 15:37 | Outpatient (AMB) | payer OTHER, SELFPAY ==
--- NOTE | 2024-11-21 15:41 | MHC.OFFVIS ---
Vital Signs 11/21/24 15:45 Height 6 ft Weight 208 lb 4 oz BMI 28.2 BP 128/75 Blood Pressure Location Rt brachial Position Sitting Pulse 88 Intake Visit Reasons: s/p flex sig Intake Note: Patient presents for post-op assessment status post flex sig. Pt c/o; no complaints. 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 He had a polyp removed from the rectum in 2021 and this had shown an adenocarcinoma within the polyp. He is being followed closely with flexible sigmoidoscopy as well as colonoscopies. I had done his flexible sigmoidoscopy 2 weeks ago and this was unremarkable and did not suggest any new lesion. He denies GI complaints. He feels well overall. [facility] Medical History History of flexible sigmoidoscopy (~11/08/24) Right inguinal hernia Right inguinal hernia Colon cancer Chest pain History of rectal cancer Rectal adenocarcinoma Actinic keratitis ARON on CPAP Skin lesion Hyperlipidemia PVC (premature ventricular contraction) GERD (gastroesophageal reflux disease) Surgical History Hx of right inguinal hernia repair (08/27/24) Hx of flexible sigmoidoscopy (~04/12/24) History of colonoscopy with polypectomy (~10/13/23) History of flexible sigmoidoscopy (~04/21/23) History of colonoscopy (~2022) History of flexible sigmoidoscopy (03/04/22) Hx of umbilical hernia repair History of rectal polypectomy History of sigmoidoscopy Hx of colonoscopy History of hand surgery History of removal of cyst History of arthroscopy of right knee History of inguinal hernia repair Family History Father Prostate CA Mother Gastric cancer Cancer Brother Skin cancer Cancer of extraocular muscle Maternal Grandfather Throat cancer Lung cancer Paternal Uncle Throat cancer Lung cancer Paternal Aunt Gastric cancer Brother Melanoma Social History Household Members: Spouse Housing: House Are you a primary foster care social worker to a significant other at home: No Do you presently have visiting nurse or other home services: No Alcohol intake: current Alcohol intake frequency: holidays/special occasions only Alcohol type: beer and wine Patient Tobacco Use Status: Former Tobacco user Tobacco use type: Cigarette Years Smoked: 15 e-Cigarette/Vaping Use: Never Used Second Hand Smoke Exposure: Yes service: Yes ([facility]) Current occupational status: employed Current occupational exposures/hazards: No Cognitive needs: No Hearing needs: No Vision needs: Yes Review of Systems Const Denies chills and Denies fever(s) Card Denies chest pain, Denies dyspnea and Denies dyspnea on exertion Resp Denies cough, Denies dyspnea and Denies dyspnea on exertion GI Denies hematochezia and Denies change in bowel habits Denies hematuria and Denies difficulty urinating Musc Denies back pain and Denies limited range of motion Neuro Denies focal weakness and Denies convulsions Psych Denies depression and Denies mood swings Physical Exam Vital Signs: Last Vital Signs Pulse 88 11/21/24 15:45 BP 128/75 11/21/24 15:45 BMI result Body Mass Index 28.2 Const General: comfortable and no acute distress Orientation/consciousness: patient oriented x3 Neck Neck: Yes no lymphadenopathy Resp Auscultation: clear to auscultation bilaterally Cardio Rhythm: regular rhythm GI Palpation (GI): Soft to palpation, nontender and no guarding Neuro General: patient oriented x3 Assessment & Plan Assessment & Plan (1) History of rectal cancer: Code(s): Z85.048 - Personal history of other malignant neoplasm of rectum, rectosigmoid junction, and anus Category: Medical Plan: He has a flexible sigmoidoscopy from November, did not reveal any lesions in the sigmoid in the rectum . I plan on repeating his full colonoscopy next year. I reviewed with him the technique of this procedure. He had understands the risks, benefits, and alternatives and agrees to proceed I have also ordered for a repeat level as his last 1 was over a year ago. He is doing well overall. Orders: Orders Carcinoembryonic Antigen 11/27/24 Z85.048 - Personal history of other malignant neoplasm of rectum, rectosigmoid junction, and anus Coding Level of Care Code Est Pt Level 3 (10714) Diagnoses History of rectal cancer Z85.048
[2024-11-21 15:45] VITALS: BP 128/75; PULSE 88; BMI 28.2
--- OUTSIDE RECORDS SUMMARY | 2024-11-21 19:23 | XMS_ITS | Patient Health Record ---
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 Name Role Phone Bebe Ruggiero MD Primary Care Provider Unavail able Gloria Edwards Unavailable [phone] Allergies Allergen (clinical drug ingredient) Drug/Non Drug [...] W/U Status Risk Notes Problem Raynaud's disease ([id number]) Raynaud's disease without gangrene (I73.00) Active confirmed Encounters Encounter Location Date Provider Diagnosis [facility] [place] [address] [place] [place] [address] 05/08/2024 Gloria Edwards Plan Of Treatment No Information Insurance Providers Payer Name Payer Address Payer Phone Subscriber Number Group Number Insured Name Patient Relationship to Insured Coverage Start Date Coverage End Date [facility] [address] [place] [address] [id number] Ulises Alvarez Self - patient is the [...]
--- OUTSIDE RECORDS SUMMARY | 2024-11-21 19:24 | XMS_ITS | Patient Health Record ---
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 Name Role Phone Chun (RETIRED) Temo SALVADOR Primary Care Provide r Loco Smith Jr Unavailable [phone] Allergies Allergen (clinical drug ingredient) Drug/Non Drug [...] Problem Status W/U Status Risk Notes Problem Gastroesophageal reflux disease without esophagitis ([id number]) Gastroesophageal reflux disease without esophagitis (K21.9) Active confirmed Plan Of Treatment Future Test Test Name Order Date UPPER GI ENDOSCOPY 07/14/2017 Insurance Providers Payer Name Payer Address Payer Phone Subscriber Number Group Number Insured Name Patient Relationship to Insured Coverage Start Date Coverage End Date [facility] (NEEDS REF and PA) [facility] CLAIMS [address] [place] [address] [id number] PAULINO RAMIREZ Self - patient is the insured Medical (General) History Medical History History ICD Code gastroesophageal reflux disease sleep apnea, CPAP migraines palpitations Surgical History Surgery Date(Month/Year) hernia repair 1972 HAND/LEFT 1986 KNEE RIGHT 2006,2015
== END 2024-11-21 15:53 | disposition home or self-care (01) ==
LOC: HO.HGS 15:39
PROVIDERS: PCP Internal Medicine; Visit Provider Surgery
DX: Z85.048 Personal history of other malignant neoplasm of rectum, rectosigmoid junction, and anus (principal)
CPT/HCPCS: 99213

== ENCOUNTER → 2024-11-21 15:37 | Outpatient (BNVA) | payer OTHER, SELFPAY | PROVIDERS: PCP Internal Medicine; Visit Provider Surgery | DX: Z08 Encounter for follow-up examination after completed treatment for malignant neoplasm (principal); Z85.048 Personal history of other malignant neoplasm of rectum, rectosigmoid junction, and anus | CPT/HCPCS: 99212 ==

== ENCOUNTER 2024-11-27 11:45 | Outpatient (REF) | payer OTHER, SELFPAY ==
[2024-11-27 13:41] LABS: Hematocrit 45.4 % (42.0-52.0); Hemoglobin 15.4 g/dl (14.0-18.0); Mean Corpuscular HGB Conc 33.9 g/dl (31.0-36.0); Mean Corpuscular Hemoglobin 30.4 pg (27.0-33.0); Mean Corpuscular Volume 89.7 fL (80.0-98.0); NRBC Abs Auto 0.000 X10*3/uL (0.0-0.012); NRBC Pct Auto 0.0 /100WBC (0.0-0.2); Platelet Count 242 X10*3/uL (160-400); Red Blood Count 5.06 X10*6/uL (4.60-5.80); White Blood Count 7.7 X10*3/uL (4.8-10.8)
[2024-11-27 14:23] LABS: Erythrocyte Sedimentation Rate 14 MM/HR (0-15)
[2024-11-27 14:31] LABS: Alanine Aminotransferase 48 U/L (0-40); Albumin Level 4.5 g/dL (3.5-5.0); Alkaline Phosphatase 91 U/L (39-117); Anion Gap 10 (12-20); Aspartate Amino Transferase 30 U/L (5-37); Blood Urea Nitrogen 14 mg/dL (9-16); Calcium 9.2 mg/dL (8.4-10.2); Carbon Dioxide 29 mmol/L (22-29); Chloride 109 mmol/L (96-108); Estimated Glomerular Filt Rate > 60; Potassium 4.0 mmol/L (3.3-5.1); Sodium 144 mmol/L (135-145); Total Protein 7.0 g/dL (6.5-8.0)
[2024-11-27 17:32] LABS: Carcinoembryonic Antigen < 1.73 ng/mL
== END 2024-11-27 11:46 | disposition home or self-care (01) ==
LOC: HO.LAB 11:45
PROVIDERS: Absent Provider Surgery; PCP Internal Medicine; Visit Provider Internal Medicine
DX: J01.90 Acute sinusitis, unspecified (principal); Z85.048 Personal history of other malignant neoplasm of rectum, rectosigmoid junction, and anus
CPT/HCPCS: 36415; 80048; 80076; 82378; 85027; 85652; 99212

== ENCOUNTER 2024-11-27 11:45 | Outpatient (AMB) | payer OTHER, SELFPAY ==
--- NOTE | 2024-11-27 11:56 | A.OFFPC_ITS ---
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: Not Required per policy Accompanied by: Self / Same As Patient Allergies Penicillins (PENICILLINS) Allergy (Intermediate, Verified 11/27/24 11:57) UNKNOWN REACTION-CHILDHOOD ALLERGY Tobacco use date assessed: 11/27/24 Dental Screening Dental Screen Date: 03/04/24 [facility] Medical History History of flexible sigmoidoscopy (~11/08/24) Right inguinal hernia Right inguinal hernia Colon cancer Chest pain History of rectal cancer Rectal adenocarcinoma Actinic keratitis ARON on CPAP Skin lesion Hyperlipidemia PVC (premature ventricular contraction) GERD (gastroesophageal reflux disease) Surgical History Hx of right inguinal hernia repair (08/27/24) Hx of flexible sigmoidoscopy (~04/12/24) History of colonoscopy with polypectomy (~10/13/23) History of flexible sigmoidoscopy (~04/21/23) History of colonoscopy (~2022) History of flexible sigmoidoscopy (03/04/22) Hx of umbilical hernia repair History of rectal polypectomy History of sigmoidoscopy Hx of colonoscopy History of hand surgery History of removal of cyst History of arthroscopy of right knee History of inguinal hernia repair Family History Father Prostate CA Mother Gastric cancer Cancer Brother Skin cancer Cancer of extraocular muscle Maternal Grandfather Throat cancer Lung cancer Paternal Uncle Throat cancer Lung cancer Paternal Aunt Gastric cancer Brother Melanoma Social History Household Members: Spouse Housing: House Are you a primary plant health care technician to a significant other at home: No Do you presently have visiting nurse or other home services: No Alcohol intake: current Alcohol intake frequency: holidays/special occasions only Alcohol type: beer and wine Patient Tobacco Use Status: Former Tobacco user Tobacco use type: Cigarette Years Smoked: 15 e-Cigarette/Vaping Use: Never Used Second Hand Smoke Exposure: Yes service: Yes ([facility] [employer]) Current occupational status: employed Current occupational exposures/hazards: No Cognitive needs: No Hearing needs: No Vision needs: Yes Questionnaire Thrive Questionnaire Date Thrive assessed: 02/27/24 I am a: Patient What is your living situation today?: I have a steady place to live Within the past 12 months, did the food you bought not last and you didn't have the money to get more?: Never true Within the past 12 months, did you worry whether your food would run out before you got money to buy more?: Never true Do you have trouble paying for medicines?: No Do you have trouble getting transportation to medical appointments?: No Do you have trouble paying your heating and electricity bill?: No Do you have trouble taking care of your child, family member or friend?: No Do you have trouble with day-to-day activities such as bathing, preparing meals, shopping, managing finances, etc.?: No Are you currently unemployed and looking for a job?: No Are you interested in more education?: No Please select the resources that you would like help with: None Currently or been in a relationship where the following occur: No concerns reported THRIVE Score: 0 ANKUSH-7 AMB Questionnaire ANKUSH-7 Date ANKUSH - 7 assessed: 03/04/24 Source: Developed by Drs. Bud Wells, Rita Powers, José Miguel Jenkins and colleagues, with an educational yefri from [employer]. Physical exam (Primary Care) Vital Signs: Last Vital Signs Temp 97.3 F 11/27/24 11:57 Pulse 79 11/27/24 11:57 BP 152/100 H 11/27/24 11:57 Pulse Ox 98 11/27/24 11:57 Oxygen Delivery Method Room Air 11/27/24 11:57 BMI result Body Mass Index 28.3 Tobacco/Smoking Status: Tobacco use Status Tobacco use date assessed 11/27/24 11/27/24 12:01 Patient Tobacco Use Status Former Tobacco user 11/27/24 12:01 Tobacco use type Cigarette 11/27/24 12:01 e-Cigarette/Vaping Use Never Used 11/27/24 12:01 Thrive Assessment: Date of Thrive Assessment Date Thrive assessed 02/27/24 11/27/24 12:01 Currently or been in a relationship where the following occur: No concerns reported Coding Level of Care Code Est Pt Level 3 (12461) Complex EM visit Add On G2211 Diagnoses Acute sinusitis J01.90 Assessment & Plan Assessment & Plan (1) Acute sinusitis: Code(s): J01.90 - Acute sinusitis, unspecified Category: Medical Plan: History of Present Illness - The patient is a 54-year-old male presenting with persistent upper respiratory symptoms for 25 days. - Symptoms include nasal congestion, headaches, myalgia, cough, and sore throat, with intermittent improvement followed by recurrence. - No other household members are affected. - The patient has been ill four times this year, with each episode lingering longer than usual. - No recent blood work abnormalities were noted in June. - The patient is prediabetic and has no other significant medical conditions. 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 - Smoking status: Non-smoker. Review of Systems - General: Reports nasal congestion, headaches, myalgia, cough, and sore throat for 25 days. - Endocrine: Reports prediabetes. - Neurological: Denies blurred vision. - Gastrointestinal: Denies abdominal pain. - Genitourinary: Denies urinary issues. Physical Exam General: Cooperative and healthy appearing Nutritional Appearance: Well nourished Orientation/consciousness: Patient oriented x3 Limitations: No limitations Head: Normal to inspection General: Appearance normal, both eyes and all related structures Neck: Normal visual inspection Chest: Normal palpation of entire chest wall Respiratory: Mild cough ormal respiratory effort Neurology: Patient oriented x3 Results Plan - Initiate antibiotic therapy to address potential bacterial infection. - Prescribe prednisone for three days to reduce inflammation. - If symptoms persist, consider further testing including x-ray and additional blood work. Discussion Notes I discussed with the patient the plan to start antibiotics and prednisone to address his symptoms. If there is no improvement, further testing such as x-rays and blood work will be considered. The patient was informed about the potential side effects and the importance of follow-up if symptoms persist. Patient Instructions - Take prescribed antibiotics and prednisone as directed. - Monitor symptoms and seek follow-up care if no improvement is noted. - Report any adverse reactions to medications immediately. Orders: Orders Basic Metabolic Panel 11/27/24 J - Acute sinusitis, unspecified Complete Blood Count no Diff 11/27/24 J - Acute sinusitis, unspecified Liver Panel 11/27/24 J - Acute sinusitis, unspecified Erythrocyte Sedimentation Rate 11/27/24 - Acute sinusitis, unspecified Medications: New azithromycin take 500 mg today (day 1), then 250 mg for 4 days (days 2-5) PO 6 tabs 0RF prednisone 60 mg (3 x 20 mg) PO DAILY 9 tabs 0RF
[2024-11-27 11:57] VITALS: BP 152/100; PULSE 79; TEMP 36.3; O2SAT 98; BMI 28.3
--- OUTSIDE RECORDS SUMMARY | 2024-11-27 16:28 | XMS_ITS | Patient Health Record ---
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 Machine Setter Name Role Phone Bebe Ruggiero MD Primary Care Provider Unavail able Gloria Edwards Unavailable [phone] Allergies Allergen (clinical drug ingredient) Drug/Non Drug [...] W/U Status Risk Notes Problem Raynaud's disease (571396804) Raynaud's disease without gangrene (I73.00) Active confirmed Encounters Encounter Location Date [facility] [place] [address] [place] [address] 05/08/2024 Gloria Edwards Plan Of Treatment No Information Insurance Providers Payer Name Payer Address Payer Phone Subscriber Number Group Number Insured Name Patient Relationship to Insured Coverage Start Date Coverage End Date [facility] [address] [place] [id number] Ulises Alvarez Self - patient is the [...]
--- OUTSIDE RECORDS SUMMARY | 2024-11-27 16:29 | XMS_ITS | Patient Health Record ---
Author Organization [facility] Address [address] [place] [address] Care Team Providers Care Nurse Case Management Name Role Phone Chun (RETIRED) Temo SALVADOR Primary Care Provide r Loco Smith Jr Unavailable [phone] Allergies Allergen (clinical drug ingredient) Drug/Non Drug [...] Notes Problem Gastroesophageal reflux disease without esophagitis (106887341) Gastroesophageal reflux disease without esophagitis (K21.9) Active confirmed Plan Of Treatment Future Test Test Name Order Date UPPER GI ENDOSCOPY 07/14/2017 Insurance Providers Payer Name Payer Address Payer Phone Subscriber Number Group Number Insured Name Patient Relationship to Insured Coverage Start Date Coverage End Date [facility] (NEEDS REF and PA) [employer] [facility] [address] [place] [address] [id number] PAULINO RAMIREZ Self - patient is the insured Medical (General) History Medical History History ICD Code gastroesophageal reflux disease sleep apnea, CPAP migraines palpitations Surgical History Surgery Date(Month/Year) hernia repair 1972 HAND/LEFT 1986 KNEE RIGHT 2006,2015
== END 2024-11-27 12:19 | disposition home or self-care (01) ==
LOC: HO.HMCH 11:46
PROVIDERS: PCP Internal Medicine; Visit Provider Internal Medicine
DX: J01.90 Acute sinusitis, unspecified (principal)